=== PATIENT | male | born 1945 | race Caucasian/White ===

== ENCOUNTER 2020-02-24 17:22 | Emergency (ER) | payer OTHER, MEDICARE, SELFPAY ==
[2020-02-24] VITALS (10 sets, daily range): BP systolic 99–129; BP diastolic 54–59; PULSE 68–132; RESP 15–19; TEMP 36.8; O2SAT 94–97
--- NOTE | 2020-02-24 17:29 | ED.GENADUL_ITS ---
Discharge Plan Disposition Patient Disposition: HOME Condition: Stable Discharge Details Chief Complaint: CVA/TIA Clinical Impression: Lightheadedness Primary Care Provider: Zeny Diaz ED Provider: Desean Gloria Home Meds and New Rx's Prescriptions: Continued metformin [Glucophage] 1,000 MG tablet 1,000 mg PO BID RF: 0 lisinopril 5 MG tablet 20 mg PO DAILY AM RF: 0 aspirin [Aspirin Low-Strength] 81 MG tablet,chewable 81 mg PO DAILY RF: 0 meclizine [Antivert] 12.5 MG tablet 12.5 mg PO TID PRN PRNQty: 10 RF: 0 atorvastatin 10 mg Tablet 10 mg PO DAILY RF: 0 amlodipine 5 mg Tablet 5 mg PO DAILY RF: 0 ropinirole 0.5 mg Tablet 0.25 mg PO .QHS RF: 0 gabapentin 300 mg Capsule 300 mg PO BID RF: 0 metoprolol succinate 25 mg Tablet Extended Release 24 Hr 25 mg PO BID RF: 0 omeprazole 20 mg Tablet,Delayed Release (Dr/Ec) 20 mg PO BID RF: 0 empagliflozin 25 mg Tablet 25 mg PO DAILY RF: 0 cyanocobalamin (vitamin B-12) 1,000 mcg Capsule 1,000 mcg PO DAILY RF: 0 Trulicity 0.75 mg/0.5 mL Pen Injector 0.75 mg SUBCUT RF: 0 Discharge Instructions Instructions: Lightheadedness (ED) Additional Instructions: your cat scan of your head and lab work was normal follow up with your primary care provider within a week if you feel more ill, have difficulty walking or weakness on one side of the body return to the emergency department Medical Decision Making 74 yo male with hx of hld, htn, dm, gerd, cad, who comes in with feeling lightheaded for 3 days and also feeling like he leans to the right when he walks. Denies chest pain, shortness of breath, headaches, fevers, chills. He walked into the room without assistance with stable normal gait and no evidence of leaning to the right. He has no facial droops, normal motor and sensation on exam, caox4, has an NIH of 0 so doubt cva but given the lightheadedness and sensation of right sided listing will obtain ct head to eval for sdh and less likely cva. Is over 2 days with symptoms so would not be candidiate for tpa. Unlikely dysrhythmia as he has normal tele with the symptoms. He has no chest pain, sob, leg swelling, calf pain so doubt acs, pe or dissection at this time. Will eval for anemia and electrolyte abnormaltiie and monitor. Did have vertigo a few years ago which could be causing the symptoms pt remains stable and still has NIH of 0. Ct unremarkable and labs also unremarkable. Stable gait. Unlikely tia given symptoms. Will have him f/u with pcp with return precautions Differential Diagnosis Differential Diagnosis: vertigo, anemia, tia, cva Medical Records Medical records reviewed: Yes I reviewed the patient's medical records. Imaging Data Radiologic Study: Attestation: I personally reviewed and interpreted this imaging study as follows: Imaging: CT Scan Radiologist's impression: IMPRESSION: No acute intracranial abnormality is identified. Early cerebral infarct may be occult on CT in the first 12 hours. Lab Data Lab results reviewed: Yes I reviewed the patient's lab results. ECG Data Attestation: I personally reviewed and interpreted this ECG (s) as follows: Prior ECG tracings: not available for review Interpretation: sinus rhythm, rate of 74, pr 194, qtc 410, no acute st t wave ischemic findings HPI General Mode of arrival: ambulatory . Date/Time Provider Initiated Documentation: 02/24/20 17:23 . Limitations to Documentation: no limitations . Information obtained by: patient . History of Present Illness 74 year old M presents to the emergency department with the chief complaint of lightheaded, described as moderate, and it has been constant. No relieving factors improve symptom(s), No exacerbating factors reported . Patient did receive the following treatments prior to arrival, none Related Data Home Medications Medication Instructions Recorded Confirmed lisinopril 20 mg PO DAILY AM 10/18/16 02/24/20 metformin [Glucophage] 1,000 mg PO BID 10/18/16 02/24/20 aspirin [Aspirin Low-Strength] 81 mg PO DAILY 05/06/17 02/24/20 meclizine [Antivert] 12.5 mg PO TID PRN PRN #10 tab 05/07/17 02/24/20 Trulicity 0.75 mg SUBCUT 02/24/20 amlodipine 5 mg PO DAILY 02/24/20 02/24/20 atorvastatin 10 mg PO DAILY 02/24/20 02/24/20 cyanocobalamin (vitamin B-12) 1,000 mcg PO DAILY 02/24/20 02/24/20 empagliflozin 25 mg PO DAILY 02/24/20 02/24/20 gabapentin 300 mg PO BID 02/24/20 02/24/20 metoprolol succinate 25 mg PO BID 02/24/20 02/24/20 omeprazole 20 mg PO BID 02/24/20 02/24/20 ropinirole 0.25 mg PO .QHS 02/24/20 02/24/20 Previous Rx's Medication Instructions Recorded meclizine [Antivert] 12.5 mg PO TID PRN PRN #10 tab 05/07/17 Allergies Allergy/AdvReac Type Severity Reaction Status Date / Time No Known Allergies Allergy Unverified 02/24/20 17:30 Review of Systems All systems reviewed & are unremarkable except as noted in HPI and below Constitutional Constitutional: Denies chills, Denies fever(s) and Denies weakness Cardiovascular Cardiovascular: Denies chest pain and Denies dyspnea Respiratory Respiratory: Denies cough and Denies dyspnea Gastrointestinal Gastrointestinal: Denies abdominal pain, Denies nausea and Denies vomiting Musculoskeletal Musculoskeletal: Denies joint swelling Neurologic Neurologic: Denies weakness [facility] Social History Smoking/Tobacco Use Status: Former Tobacco Use Alcohol Intake: never Substance use type: does not use Do you feel safe in your relationship?: Yes Exam Const General: no acute distress Orientation: alert HENMT Head: normal to inspection Ears: external ears normal General nose exam: external nose normal Mouth: moist mucous membranes Eyes General: appearance normal, both eyes and all related structures Neck Neck: normal visual inspection Resp Effort & Inspection: normal respiratory effort and able to speak in complete sentences Cardio Rate: regular rate Skin General skin exam: no rashes or lesions noted Neuro General: patient alert and patient oriented x3 Extrem General: normal to inspection Psych Mental Status: mental status grossly normal
--- NOTE | 2020-02-24 17:40 | DI.CT_ITS ---
EXAM: CT HEAD - STROKE PROTOCOL CLINICAL HISTORY: stroke symptoms. TECHNIQUE: Imaging Protocol: Axial computed tomography images with coronal and sagittal reformatted images were created and reviewed COMPARISON: HEAD WITHOUT STROKE PROTOCOL from 05/06/2017 FINDINGS: Ventricles and Extra axial spaces: There is prominence of the ventricles and sulci consistent with ag e-appropriate cerebral atrophy. Hemorrhage: None. Cerebral parenchyma: There are areas of decreased attenuation in the white matter consistent with sma ll vessel ischemic disease. No acute territorial infarct is seen. Midline shift: None. Brainstem/Cerebellum: Normal. Calvarium: Normal. Visualized Paranasal sinuses/Mastoids: Clear. Soft Tissues: Unremarkable. IMPRESSION: No acute intracranial process. RADIATION DOSE DELIVERED: DATA REPOSITORY: All CT scans at this facility are submitted to the National Radiology Data Registry (NRDR) Dose Index Registry (DIR) with the [employer] ([employer]). RADIATION OPTIMIZATION: All CT scans at this facility use at least one of these dose optimization te chniques: automated exposure control; mA and/or kV adjustment per patient size (includes targeted exa ms where dose is matched to clinical indication); or iterative reconstruction.
[2020-02-24 17:44] LABS: Abs Immature Grans 0.02 k/cumm (0.0-0.09); Absolute Basophil Count 0.01 k/cumm (0.0-0.2); Absolute Eosinophil Count 0.22 k/cumm (0.0-0.7); Absolute Lymphocyte Count 2.66 k/cumm (1.2-3.4); Absolute Monocyte Count 0.69 k/cumm (0.11-0.7); Absolute Neutrophil Count 6.86 k/cumm (1.2-6.7); Basophils % 0.1; Eosinophils % 2.1; HGB 13.9 g/dL (13.5-17.5); Immature Grans % 0.2 %; Lymphocytes % 25.4; Mean Corp. HGB Concentration 33.9 g/dL (32.0-36.0); Mean Corpuscular Hemoglobin 32.1 pg (27.0-33.0); Mean Corpuscular Volume 94.7 fL (80-95); Mean Platelet Volume 10.3 fL (8.0-11.0); Monocytes % 6.6; Neutrophils % 65.6; Platelet Count 313 x1000/uL (130-400); RBC 4.33 m/cumm (4.50-6.00); RBC Distribution Width 12.6 % (11.8-14.1); White Blood Cell Count 10.46 k/cumm (4.4-10.8)
--- NOTE | 2020-02-24 17:47 | DI.VRAD_ITS ---
PROCEDURE INFORMATION: Exam: CT Head Without Contrast Exam date and time: 02/24/2020 5:37 PM Age: 74 years old Clinical indication: Other: Stroke symptoms TECHNIQUE: Imaging protocol: Computed tomography of the head without contrast. Radiation optimization: All CT scans at this facility use at least one of these dose optimization techniques: automated exposure control; mA and/or kV adjustment per patient size (includes targeted exams where dose is matched to clinical indication); or iterative reconstruction. Other technique: STROKE PROTOCOL was implemented. COMPARISON: CT HEAD WITHOUT STROKE PROTOCOL 05/06/2017 8:11 PM FINDINGS: Brain: Prominent chronic small vessel ischemic changes in the bilateral periventricular white matter. Mild diffuse cortical volume loss. No acute intracranial hemorrhage. No midline shift. Ventricles: Normal. No ventriculomegaly. Bones/joints: No acute fracture. Sinuses: Unremarkable as visualized. No acute sinusitis. Mastoid air cells: Visualized mastoid air cells are well aerated. Soft tissues: Unremarkable. IMPRESSION: No acute intracranial abnormality is identified. Early cerebral infarct may be occult on CT in the first 12 hours. ASSESSMENT: ASPECTS ([place] Stroke Program Early CT Score) is 10. Please note that this is a preliminary report. The separate, final report is to follow. Dictated and Authenticated by: Sandra Barber MD. Ordering:SLADE Anton MD
[2020-02-24 17:53] LABS: INR 1.1 (0.9-1.1); PTT Activated 26.1 sec (21.0-31.4); Prothrombin Time 10.7 sec (9.3-11.0)
[2020-02-24 17:58] LABS: ALT 27 U/L (16-63); AST 21 U/L (15-37); Albumin 3.7 g/dL (3.4-5.0); Alkaline Phosphatase 66 U/L (46-116); Anion Gap 9.4 mmol/L (3-11); BUN 25 mg/dL (7-18); Bilirubin, Total 0.3 mg/dL (0.2-1.0); CO2 28.6 mmol/L (21.0-32.0); CREATININE 1.37 mg/dL (0.70-1.30); Calcium 8.9 mg/dL (8.5-10.1); Chloride 103 mmol/L (98-107); Estimated GFR 50.79 (mL/min/1.73m2); Glucose 95 mg/dL (74-106); Magnesium 0.8 mg/dL (1.8-2.4); Potassium 3.9 mmol/L (3.5-5.1); Sodium 141 mmol/L (136-145); Total Protein 7.4 g/dL (6.4-8.2)
[2020-02-24 18:01] LABS: Troponin I < 0.05 ng/Ml (<0.06)
== END 2020-02-24 18:31 | disposition home or self-care (01) ==
PROVIDERS: Emergency Provider Emergency Medicine; PCP Nurse Practitioner Family
DX: R42 Dizziness and giddiness (principal); E83.42 Hypomagnesemia; I10 Essential (primary) hypertension; E11.9 Type 2 diabetes mellitus without complications; Z79.84 Long term (current) use of oral hypoglycemic drugs
CPT/HCPCS: 36415; 80053; 93005; 99285; 70450; 83735; 84484; 85025; 85610; 85730; 93010; 99284

== ENCOUNTER 2022-11-23 12:21 | Emergency (ER) | payer OTHER, SELFPAY ==
[2022-11-23] VITALS (25 sets, daily range): BP systolic 100–147; BP diastolic 44–59; PULSE 49–67; RESP 13–18; TEMP 36.7; O2SAT 99
--- NOTE | 2022-11-23 12:15 | RT.EKG_ITS ---
APPROVED REPORT Exam: Resting ECG Reason for Exam: DIZZY Patient Location: E HR:59 bpm ECG Measurements Heart Rate 59 AXIS PA 220 P -12 QRSd 79 QRS -10 QT 429 T 68 QTc 426 Conclusion Sinus bradycardia...rate< 60 Prolonged PA interval...PA >220, V-rate 50- 90. Sinus. No STEMI. I have reviewed and interpreted ECG and agree with software generated interpretation.
--- NOTE | 2022-11-23 12:30 | DI.CT_ITS ---
Exam(s) CT HEAD WO EXAM: CT HEAD WO CLINICAL HISTORY: dizziness, unsteadiness, r/o acute cva. TECHNIQUE: Imaging Protocol: Axial computed tomography images with coronal and sagittal reformatted images were created and reviewed COMPARISON: CT CT HEAD - STROKE PROTOCOL from 02/24/2020 FINDINGS: Ventricles and Extra axial spaces: Normal in size and morphology for the patient's age. Hemorrhage: None. Cerebral parenchyma: No evidence of an acute territorial infarct is seen. There are areas of decreas ed attenuation in the white matter consistent with small vessel ischemic disease. Midline shift: None. Brainstem/Cerebellum: Normal. Calvarium: Normal. Visualized Paranasal sinuses/Mastoids: Clear. Soft Tissues: Unremarkable. IMPRESSION: 1. No acute intracranial process. 2. Findings were discussed with the emergency department at 3:50 p.m. on 11/23/2022. RADIATION DOSE DELIVERED: 754.69mGy.cm Total DLP DATA REPOSITORY: All CT scans at this facility are submitted to the National Radiology Data Registry (NRDR) Dose Index Registry (DIR) with the [employer] (ACR). RADIATION OPTIMIZATION: All CT scans at this facility use at least one of these dose optimization te chniques: automated exposure control; mA and/or kV adjustment per patient size (includes targeted exa ms where dose is matched to clinical indication); or iterative reconstruction.
--- NOTE | 2022-11-23 12:30 | DI.RAD_ITS ---
Exam(s) XR CHEST 2V PA LATERAL EXAM: XR CHEST 2V PA LATERAL CLINICAL HISTORY: dizziness, r/o acute disease TECHNIQUE: 2D digital imaging was performed of the chest. Two images were obtained. PA and lateral views were obtained. COMPARISON: CR CHEST 2 VIEWS PA,LAT from 10/18/2016 FINDINGS: MEDIASTINUM: Normal. HEART: Normal. PULMONARY VASCULATURE: Normal. LUNGS: Clear. PLEURAL SPACE: No pleural effusion or pneumothorax. BONE:Within normal limits for the patient's age. Sternal wires are in place. OTHER FINDINGS:Normal. IMPRESSION: No acute pulmonary findings. DATA REPOSITORY: RADIATION DOSE DELIVERED:
[2022-11-23 13:18] LABS: Abs Immature Grans 0.02 10^3/uL (0.0-0.06); Absolute Basophil Count 0.02 10^3/uL (0.0-0.2); Absolute Eosinophil Count 0.16 10^3/uL (0.0-0.7); Absolute Lymphocyte Count 1.57 10^3/uL (1.2-3.4); Absolute Monocyte Count 0.55 10^3/uL (0.1-0.8); Absolute Neutrophil Count 4.73 10^3/uL (1.2-6.7); Basophils % 0.3; Eosinophils % 2.3; HCT 37.5 % (40.0-50.0); HGB 12.5 g/dL (13.5-17.5); Immature Grans % 0.3; Lymphocytes % 22.3; MCH 32.1 pg (27.0-33.0); MCHC 33.3 % (32.0-36.0); MCV 96 fL (80-95); MPV 9.6 fL (8.0-11.0); Monocytes % 7.8; Platelet Count 266 10^3/uL (130-400); RDW 12.6 % (11.8-14.1); WBC 7.05 10^3/uL (4.4-10.8)
[2022-11-23 13:30] LABS: ALT 19 U/L (16-63); AST 20 U/L (15-37); Albumin 3.4 g/dL (3.4-5.0); Alkaline Phosphatase 79 U/L (46-116); Anion Gap 5.4 mmol/L (3-11); BUN 25 mg/dL (7-18); Bilirubin, Total 0.4 mg/dL (0.2-1.0); CO2 28.6 mmol/L (21.0-32.0); CREATININE 1.6 mg/dL (0.70-1.30); Calcium 8.7 mg/dL (8.5-10.1); Chloride 108 mmol/L (98-107); Glucose 212 mg/dL (74-106); Magnesium 1.9 mg/dL (1.8-2.4); Potassium 3.6 mmol/L (3.5-5.1); Sodium 142 mmol/L (136-145); Troponin I < 50 ng/L (<or=60)
[2022-11-23 13:48] LABS: COVID-19 PCR Negative (Negative); Influenza A PCR Negative (Negative); Influenza B PCR Negative (Negative); RSV PCR Negative (Negative)
[2022-11-23 13:51] LABS: Source Nasopharynx
--- NOTE | 2022-11-23 14:03 | ED.GENADUL_ITS ---
Discharge Plan Disposition Patient Disposition: Home Condition: Improving Discharge Details Clinical Impression: Dizziness Primary Care Provider: Zeny Diaz ED Provider: Estefania Andrews Home Meds and New Rx's Prescriptions: New meclizine 12.5 mg tablet 12.5 mg PO TID PRN (Reason: dizziness) Qty: 14 0RF Continued lisinopril 5 MG tablet 20 mg PO DAILY AM meclizine [Antivert] 12.5 MG tablet 12.5 mg PO TID PRN PRNQty: 10 0RF atorvastatin 10 mg Tablet 10 mg PO DAILY amlodipine 5 mg Tablet 5 mg PO DAILY ropinirole 0.5 mg Tablet 0.25 mg PO .QHS gabapentin 300 mg Capsule 300 mg PO BID metoprolol succinate 25 mg Tablet Extended Release 24 Hr 25 mg PO BID omeprazole 20 mg Tablet,Delayed Release (Dr/Ec) 20 mg PO BID empagliflozin 25 mg Tablet 25 mg PO DAILY cyanocobalamin (vitamin B-12) 1,000 mcg Capsule 1,000 mcg PO DAILY Trulicity 0.75 mg/0.5 mL Pen Injector 0.75 mg SUBCUT Discharge Instructions Instructions: Dizziness (ED) Additional Instructions: Your blood tests, EKG and imaging today are reassuring and show no evidence of acute concerning or significant findings. Your symptoms may be due to dehydration or vertigo. Drink plenty of fluids and get plenty of rest. Be sure to limit your amount of soda consumption as this does not help with hydration. A prescription for meclizine has been sent electronically to your pharmacy to take as needed and directed for symptoms of dizziness. Follow-up with your primary care doctor in 1 week. Return to the emergency department with any worsening or new concerning symptoms. Discharge Data Discharge Date/Time-TO BE ENTERED AT DEPARTURE: 11/23/22 16:58 Discharge Physician: Estefania Andrews Medical Decision Making 1430 -- 77-year-old male with history of hypertension, coronary artery disease, diabetes and CABG presents for intermittent dizziness for the past 3 days. Patient appears comfortable and nontoxic. EKG notes a rate of 59, sinus, no STEMI nondiagnostic. Review of records notes that patient was seen here almost 3 years ago for similar presentation in which he had dizziness worse with movement and felt he was leaning to 1 side. History and presentation does not appear consistent with subarachnoid hemorrhage or meningitis. Considering his age and history, will obtain screening labs, urinalysis, fluvid, CT head, chest x-ray and give meclizine and IV fluids and reassess. 1630 --labs and imaging reviewed. Normal white blood cell count. Troponin negative. Creatinine 1.6 and GFR 44 which are diminished compared to previous result although this was in 2019. This may be consistent with dehydration. Urinalysis negative for infection. Fluvid negative. CT head and chest x-ray negative for acute findings. Patient reassessed. Patient ate a tray of food and ambulated around the ED without any complaint of dizziness and is requesting to go home. Advised to increase fluids and rest. Son expressed concern for patient's diet soda consumption. Advised to drink plenty of water and limit diet soda. A prescription for meclizine sent electronically to his pharmacy. Advised to follow up with the primary care doctor for re-evaluation. Usual and customary return precautions given prior to discharge. Medical Records Medical records reviewed: Yes I reviewed the patient's medical records. Imaging Data Radiologic Study: Radiologist's impression: CT HEAD WO CLINICAL HISTORY: ? dizziness, unsteadiness, r/o acute cva. ? TECHNIQUE:? Imaging Protocol: Axial computed tomography images with coronal and sagittal reformatted images were created and reviewed COMPARISON:? CT CT HEAD - STROKE PROTOCOL from 02/24/2020 FINDINGS: Ventricles and Extra axial spaces: Normal in size and morphology for the patient's age. Hemorrhage: None. Cerebral parenchyma: No evidence of an acute territorial infarct is seen.? There are areas of decreased attenuation in the white matter consistent with small vessel ischemic disease.? Midline shift: None. Brainstem/Cerebellum: Normal. Calvarium: Normal. Visualized Paranasal sinuses/Mastoids: Clear. Soft Tissues: Unremarkable. IMPRESSION: 1. No acute intracranial process. XR CHEST 2V PA ? LATERAL CLINICAL HISTORY:? dizziness, r/o acute disease TECHNIQUE:? 2D digital imaging was performed of the chest.? Two images were obtained.? PA and lateral views were obtained. COMPARISON:? CR CHEST 2 VIEWS PA,LAT from 10/18/2016 FINDINGS: MEDIASTINUM: Normal.? HEART: Normal. PULMONARY VASCULATURE: Normal. LUNGS: Clear. ? PLEURAL SPACE: No pleural effusion or pneumothorax. BONE:Within normal limits for the patient's age.? Sternal wires are in place. OTHER FINDINGS:Normal.? IMPRESSION: No acute pulmonary findings. Lab Data Lab results reviewed: Yes I reviewed the patient's lab results. Labs: Laboratory Tests Range/Units 11/23/22 11/23/22 11/23/22 12:38 13:05 13:05 WBC (4.4-10.8) 10^3/uL 7.05 RBC (4.36-5.78) 10^6/uL 3.90 L Hgb (13.5-17.5) g/dL 12.5 L Hct (40.0-50.0) % 37.5 L MCV (80-95) fL 96 H MCH (27.0-33.0) pg 32.1 MCHC (32.0-36.0) % 33.3 RDW (11.8-14.1) % 12.6 Plt Count (130-400) 10^3/uL 266 MPV (8.0-11.0) fL 9.6 Immature Gran % 0.3 Neutrophils % 67.0 Lymphocytes % 22.3 Monocytes % 7.8 Eosinophils % 2.3 Basophils % 0.3 Nucleated RBC % (0.0-0.3) % 0.0 Absolute Neutrophils (1.2-6.7) 10^3/uL 4.73 Absolute Lymphocytes (1.2-3.4) 10^3/uL 1.57 Absolute Monocytes (0.1-0.8) 10^3/uL 0.55 Absolute Eosinophils (0.0-0.7) 10^3/uL 0.16 Absolute Basophils (0.0-0.2) 10^3/uL 0.02 Sodium (136-145) mmol/L 142 Potassium (3.5-5.1) mmol/L 3.6 Chloride (98-107) mmol/L 108 H Carbon Dioxide (21.0-32.0) mmol/L 28.6 Anion Gap (3-11) mmol/L 5.4 BUN (7-18) mg/dL 25 H Creatinine (0.70-1.30) mg/dL 1.6 H Est GFR (CKD-EPI 2020) (mL/min/1.73m2) 44.10 Glucose (74-106) mg/dL 212 H Calcium (8.5-10.1) mg/dL 8.7 Magnesium (1.8-2.4) mg/dL 1.9 Total Bilirubin (0.2-1.0) mg/dL 0.4 AST (15-37) U/L 20 ALT (16-63) U/L 19 Alkaline Phosphatase (46-116) U/L 79 Troponin I (<or=60) ng/L < 50 Total Protein (6.4-8.2) g/dL 7.0 Albumin (3.4-5.0) g/dL 3.4 Urine Color (Yellow) Urine Clarity (Clear) Urine pH (5-8) Ur Specific [place] (1.005-1.025) Urine Protein (Negative) mg/dL Urine Ketones (Negative) mg/dL Urine Blood (Negative) Urine Nitrite (Negative) Urine Bilirubin (Negative) Urine Urobilinogen (Up TO 0.2) EU/dL Ur Leukocyte Esterase (Negative) Urine RBC (0-2) HPF Urine WBC (0-5) HPF Ur Epithelial Cells (Negative) HPF Urine Crystals (Negative) HPF Urine Bacteria (Negative) HPF Urine Casts (Negative) LPF Urine Mucus (Negative) Ur Culture Indicated? Urine Glucose (Negative) mg/dL COVID-19 Source Nasopharynx SARS-CoV-2 (PCR) (Negative) Negative Influenza Type A (PCR) (Negative) Negative Influenza Type B (PCR) (Negative) Negative RSV (PCR) (Negative) Negative Range/Units 11/23/22 14:09 WBC (4.4-10.8) 10^3/uL RBC (4.36-5.78) 10^6/uL Hgb (13.5-17.5) g/dL Hct (40.0-50.0) % MCV (80-95) fL MCH (27.0-33.0) pg MCHC (32.0-36.0) % RDW (11.8-14.1) % Plt Count (130-400) 10^3/uL MPV (8.0-11.0) fL Immature Gran % Neutrophils % Lymphocytes % Monocytes % Eosinophils % Basophils % Nucleated RBC % (0.0-0.3) % Absolute Neutrophils (1.2-6.7) 10^3/uL Absolute Lymphocytes (1.2-3.4) 10^3/uL Absolute Monocytes (0.1-0.8) 10^3/uL Absolute Eosinophils (0.0-0.7) 10^3/uL Absolute Basophils (0.0-0.2) 10^3/uL Sodium (136-145) mmol/L Potassium (3.5-5.1) mmol/L Chloride (98-107) mmol/L Carbon Dioxide (21.0-32.0) mmol/L Anion Gap (3-11) mmol/L BUN (7-18) mg/dL Creatinine (0.70-1.30) mg/dL Est GFR (CKD-EPI 2020) (mL/min/1.73m2) Glucose (74-106) mg/dL Calcium (8.5-10.1) mg/dL Magnesium (1.8-2.4) mg/dL Total Bilirubin (0.2-1.0) mg/dL AST (15-37) U/L ALT (16-63) U/L Alkaline Phosphatase (46-116) U/L Troponin I (<or=60) ng/L Total Protein (6.4-8.2) g/dL Albumin (3.4-5.0) g/dL Urine Color (Yellow) Yellow Urine Clarity (Clear) Clear Urine pH (5-8) 6.0 Ur Specific [place] (1.005-1.025) 1.015 Urine Protein (Negative) mg/dL Trace H Urine Ketones (Negative) mg/dL Negative Urine Blood (Negative) Trace-intact H Urine Nitrite (Negative) Negative Urine Bilirubin (Negative) Negative Urine Urobilinogen (Up TO 0.2) EU/dL 0.2 Ur Leukocyte Esterase (Negative) Negative Urine RBC (0-2) HPF 0-2 Urine WBC (0-5) HPF Negative Ur Epithelial Cells (Negative) HPF Rare Urine Crystals (Negative) HPF Negative Urine Bacteria (Negative) HPF Negative Urine Casts (Negative) LPF Negative Urine Mucus (Negative) Negative Ur Culture Indicated? No Urine Glucose (Negative) mg/dL >=1000 H COVID-19 Source SARS-CoV-2 (PCR) (Negative) Influenza Type A (PCR) (Negative) Influenza Type B (PCR) (Negative) RSV (PCR) (Negative) ECG Data Attestation: I personally reviewed and interpreted this ECG (s) as follows: Interpretation: rate of 59, sinus. no stemi. HPI General Mode of arrival: wheelchair . Date/Time Provider Initiated Documentation: 11/23/22 12:23 . Limitations to Documentation: no limitations . Information obtained by: patient and family . HPI Narrative: Patient is a 77-year-old male with a history of hypertension, coronary artery disease, diabetes and CABG who presents for dizziness for the past 3 days. Patient describes a sensation of lightheadedness in addition to spinning sensation. Patient states the symptoms are worse when he tries to get up. He denies any syncopal episodes. He denies any associated symptoms of fever, new blurry vision, sore throat, headache, neck pain, chest pain, shortness of breath, abdominal pain, nausea, vomiting, diarrhea or urinary symptoms. He states his doctor recently stopped his metformin but otherwise denies any new medication changes. Son states patient does not drink enough water throughout t he day and mainly drinks Diet Coke. Patient states he was able to eat breakfast this morning. Related Data Home Medications Medication Instructions Recorded Confirmed lisinopril 5 mg tablet 20 mg PO DAILY AM 10/18/16 02/24/20 meclizine 12.5 mg tablet (Antivert) 12.5 mg PO TID PRN PRN ##10 05/07/17 02/24/20 amlodipine 5 mg tablet 5 mg PO DAILY 02/24/20 02/24/20 atorvastatin 10 mg tablet 10 mg PO DAILY 02/24/20 02/24/20 cyanocobalamin (vitamin B-12) 1,000 mcg PO DAILY 02/24/20 02/24/20 1,000 mcg capsule dulaglutide 0.75 mg/0.5 mL 0.75 mg subcut 02/24/20 subcutaneous pen injector (Trulicity) empagliflozin 25 mg tablet 25 mg PO DAILY 02/24/20 02/24/20 gabapentin 300 mg capsule 300 mg PO BID 02/24/20 02/24/20 metoprolol succinate 25 mg 25 mg PO BID 02/24/20 02/24/20 tablet,extended release 24 hr omeprazole 20 mg tablet,delayed 20 mg PO BID 02/24/20 02/24/20 release ropinirole 0.5 mg tablet 0.25 mg PO .QHS 02/24/20 02/24/20 meclizine 12.5 mg tablet 12.5 mg PO TID PRN dizziness #14 12/23/22 tabs Previous Rx's Medication Instructions Recorded meclizine 12.5 mg tablet (Antivert) 12.5 mg PO TID PRN PRN ##10 05/07/17 meclizine 12.5 mg tablet 12.5 mg PO TID PRN dizziness #14 11/23/22 tabs Allergies Allergy/AdvReac Type Severity Reaction Status Date / Time No Known Allergies Allergy Unverified 11/23/22 15:07 General Stated Complaint: Dizzy/Sync CHANDRA: 3 Review of Systems All systems reviewed & are unremarkable except as noted in HPI and below Constitutional Constitutional: Reports as per HPI, Denies chills and Denies fever(s) Eyes Eyes: Denies blurry vision ENT Ears, Nose, Mouth, and Throat: Reports dizziness, Denies sore throat and Denies throat swelling Cardiovascular Cardiovascular: Denies chest pain and Denies dyspnea Respiratory Respiratory: Denies cough and Denies dyspnea Gastrointestinal Gastrointestinal: Denies abdominal pain, Denies diarrhea and Denies vomiting Genitourinary Genitourinary: Denies hematuria and Denies dysuria Musculoskeletal Musculoskeletal: Denies back pain and Denies numbness Integumentary/Breasts Skin/Breast: Denies lesions and Denies rash Neurologic Neurologic: Reports dizziness, Denies localized weakness and Denies numbness Allergic/Immunologic Allergic/Immunologic: Denies throat swelling PFSH All Active Problems (Updated 11/23/22 @ 16:41 by Estefania Andrews DO) Dizziness (Acute) Medical History (Updated 11/23/22 @ 16:41 by Estefania Andrews DO) Diabetes HTN (hypertension) Surgical History (Updated 11/23/22 @ 15:29 by Estefania Andrews DO) History of appendectomy Hx of CABG Social History Smoking/Tobacco Use Status: Former Tobacco Use Smoking risk assessment performed?: Yes Alcohol Intake: never Substance use type: does not use Do you feel safe in your relationship?: Yes Exam Const General: cooperative and no acute distress Orientation: alert, awake and oriented x3 HENMT Head: normal to inspection Ears: hearing grossly normal bilaterally, external ears normal and TM's normal bilaterally Face and sinus: normal facial exam Mouth: oral mucosae normal Throat: posterior oropharynx normal Eyes General: appearance normal, both eyes and all related structures Pupils: PERRL EOM: EOM intact bilaterally Neck Neck: normal visual inspection and No submandibular swelling Lymphatic: no lymphadenopathy noted Chest Chest: normal inspection of the chest and no tenderness Resp Effort & Inspection: normal respiratory effort and able to speak in complete sentences Auscultation: clear to auscultation bilaterally Cardio Rate: regular rate Rhythm: regular rhythm GI Inspection: normal to inspection Palpation: soft, not firm, not rigid and nontender Auscultation: hypoactive bowel sounds Skin General skin exam: no rashes or lesions noted Neuro General: patient alert, patient awake, patient oriented x3, no meningeal signs and no focal motor deficits Cranial Nerves: CN's II-XI intact bilaterally Cognition: normal cognition Speech: speech normal Motor: muscle tone normal throughout and strength 5/5 throughout Sensory Exam: no sensory deficits noted Extrem General: normal to inspection, full ROM, capillary refill normal, no calf tenderness bilaterally and no edema Psych Appearance: grossly normal Mental Status: mental status grossly normal Speech and Movement: speech and movement normal Affect: normal affect Course Vital Signs Vital signs: Vital Signs Temperature 98.1 F 11/23/22 12:28 Pulse 61 11/23/22 12:28 Respiratory Rate 16 11/23/22 12:28 Blood Pressure 122/54 L 11/23/22 12:28 Pulse Oximetry 99 11/23/22 12:28 Temperature 98.1 F 11/23/22 12:28 Temperature Source Skin 11/23/22 12:28 Pulse 61 11/23/22 12:28 Respiratory Rate 16 11/23/22 12:28 Blood Pressure 122/54 L 11/23/22 12:28 Blood Pressure Position Supine 11/23/22 12:28 Pulse Oximetry 99 11/23/22 12:28 Oxygen Delivery Method Room Air 11/23/22 12:28 Oxygen Flow Rate 0 11/23/22 12:28 Pain Level 0 11/23/22 12:28 Lab/Test Results Lab/Test Results: Laboratory Tests Range/Units 11/23/22 11/23/22 11/23/22 12:38 13:05 13:05 WBC (4.4-10.8) 10^3/uL 7.05 RBC (4.36-5.78) 10^6/uL 3.90 L Hgb (13.5-17.5) g/dL 12.5 L Hct (40.0-50.0) % 37.5 L MCV (80-95) fL 96 H MCH (27.0-33.0) pg 32.1 MCHC (32.0-36.0) % 33.3 RDW (11.8-14.1) % 12.6 Plt Count (130-400) 10^3/uL 266 MPV (8.0-11.0) fL 9.6 Immature Gran % 0.3 Neutrophils % 67.0 Lymphocytes % 22.3 Monocytes % 7.8 Eosinophils % 2.3 Basophils % 0.3 Nucleated RBC % (0.0-0.3) % 0.0 Absolute Neutrophils (1.2-6.7) 10^3/uL 4.73 Absolute Lymphocytes (1.2-3.4) 10^3/uL 1.57 Absolute Monocytes (0.1-0.8) 10^3/uL 0.55 Absolute Eosinophils (0.0-0.7) 10^3/uL 0.16 Absolute Basophils (0.0-0.2) 10^3/uL 0.02 Sodium (136-145) mmol/L 142 Potassium (3.5-5.1) mmol/L 3.6 Chloride (98-107) mmol/L 108 H Carbon Dioxide (21.0-32.0) mmol/L 28.6 Anion Gap (3-11) mmol/L 5.4 BUN (7-18) mg/dL 25 H Creatinine (0.70-1.30) mg/dL 1.6 H Est GFR (CKD-EPI 2020) (mL/min/1.73m2) 44.10 Glucose (74-106) mg/dL 212 H Calcium (8.5-10.1) mg/dL 8.7 Magnesium (1.8-2.4) mg/dL 1.9 Total Bilirubin (0.2-1.0) mg/dL 0.4 AST (15-37) U/L 20 ALT (16-63) U/L 19 Alkaline Phosphatase (46-116) U/L 79 Troponin I (<or=60) ng/L < 50 Total Protein (6.4-8.2) g/dL 7.0 Albumin (3.4-5.0) g/dL 3.4 COVID-19 Source Nasopharynx SARS-CoV-2 (PCR) (Negative) Negative Influenza Type A (PCR) (Negative) Negative Influenza Type B (PCR) (Negative) Negative RSV (PCR) (Negative) Negative
[2022-11-23 14:21] LABS: Bilirubin Negative (Negative); Blood Trace-intact (Negative); Clarity Clear (Clear); Glucose >=1000 mg/dL (Negative); Ketones Negative (Negative); Leukocyte Esterase Negative (Negative); Nitrite Negative (Negative); Specific Gravity 1.015 (1.005-1.025); Urobilinogen 0.2 EU/dL (Up TO 0.2)
[2022-11-23 14:28] LABS: Bacteria Negative HPF (Negative); C & S Indicated? No; Casts Negative LPF (Negative); Crystals Negative HPF (Negative); Epithelial Cells Rare HPF (Negative); Mucus Negative (Negative); RBC 0-2 HPF (0-2); WBC Negative HPF (0-5)
[2022-11-23] MEDS: Normal Saline 1,000 ML 1000 ML IV (15:04)
[2022-11-23] MEDS: Meclizine 25 MG TAB PO (15:04)
--- NOTE | 2022-11-23 16:32 | DI.VRAD_ITS ---
PROCEDURE INFORMATION: Exam: XR Chest Exam date and time: 11/23/2022 3:02 PM Age: 77 years old Clinical indication: Dizziness, R/O acute disease TECHNIQUE: Imaging protocol: Radiologic exam of the chest. Views: 2 views. COMPARISON: CR CHEST 2 VIEWS PA,LAT 10/18/2016 12:14 PM FINDINGS: Lungs: No consolidation. Pleural spaces: No pleural effusion. No pneumothorax. Heart/Mediastinum: No cardiomegaly. Bones/joints: Sternotomy wires are noted. Osteoarthritic degenerative changes noted at acromioclavicular joints. No acute fracture. IMPRESSION: No evidence of acute findings. Dictated and Authenticated by: Monisha Celeste MD. Ordering:SAADIA Mac MD
[2022-11-23] MEDS: Meclizine 12.5 MG TAB PO (16:53)
== END 2022-11-23 16:58 | disposition home or self-care (01) ==
PROVIDERS: Emergency Provider Physician Assistant; PCP Nurse Practitioner Family
DX: R42 Dizziness and giddiness (principal); I10 Essential (primary) hypertension; I25.10 Atherosclerotic heart disease of native coronary artery without angina pectoris; E11.9 Type 2 diabetes mellitus without complications; Z20.822 Contact with and (suspected) exposure to COVID-19
CPT/HCPCS: 36416; 80053; 82962; 87637; 93005; 96360; 99284; 70450; 71046; 81003; 81015; 83735; 84484; 85025; 93010; 99285

== ENCOUNTER 2023-01-05 16:58 | Observation (INO) | payer OTHER, SELFPAY ==
[2023-01-05] VITALS (173 sets, daily range): BP systolic 116–183; BP diastolic 49–119; PULSE 53–126; RESP 8–31; TEMP 36.2–37.1; O2SAT 94–100
--- NOTE | 2023-01-05 | DI.RAD_ITS ---
Exam(s) XR ABDOMEN FLAT UPRIGHT EXAM: 2D digital imaging was performed. CLINICAL HISTORY: nausea, retching, poor appetite. COMPARISON: No exams were available for comparison TECHNIQUE: Supine and uprightSupine and Lateral views of the abdomen was performed. Three images w ere obtained. FINDINGS: LUNG BASES: Clear. BOWEL GAS PATTERN: Nondistended. There are diverticula seen in the colon. No evidence of bowel obstr uction. FREE AIR: None. CALCIFICATIONS: No radiopaque calcifications. OSSEOUS STRUCTURES: Normal for age. Sternal wires are in place. OTHER FINDINGS: None. IMPRESSION: No evidence of an acute abdomen. DATA REPOSITORY: RADIATION DOSE DELIVERED:
--- NOTE | 2023-01-05 17:00 | DI.RAD_ITS ---
Exam(s) XR PORTABLE CHEST AP EXAM: XR PORTABLE CHEST AP CLINICAL HISTORY: N/V TECHNIQUE: 2D digital imaging was performed of the chest. One image was obtained. An AP view was ob tained. COMPARISON: CR,XR XR CHEST 2V PA LATERAL from 11/23/2022 FINDINGS: MEDIASTINUM: Normal. HEART: Normal. PULMONARY VASCULATURE: Normal. LUNGS: Clear. PLEURAL SPACE: No pleural effusion or pneumothorax. BONE:Within normal limits for the patient's age. Sternal wires are in place. OTHER FINDINGS:Normal. IMPRESSION: No acute pulmonary findings. DATA REPOSITORY: RADIATION DOSE DELIVERED:
--- NOTE | 2023-01-05 17:00 | RT.EKG_ITS ---
APPROVED REPORT Exam: Resting ECG Reason for Exam: lightheadedness Patient Location: E HR:59 bpm ECG Measurements Heart Rate 59 AXIS MO 213 P -5 QRSd 83 QRS -11 QT 431 T 52 QTc 419 Conclusion Sinus bradycardia...rate< 60 Atrial premature complex...SV complex w/ short R-R interval Borderline prolonged MO interval...MO >212, V-rate 50- 90
[2023-01-05] MEDS: Normal Saline 1,000 ML 1000 ML IV (17:40)
[2023-01-05 17:43] LABS: Abs Immature Grans 0.02 10^3/uL (0.0-0.06); Absolute Basophil Count 0.03 10^3/uL (0.0-0.2); Absolute Eosinophil Count 0.27 10^3/uL (0.0-0.7); Absolute Lymphocyte Count 1.58 10^3/uL (1.2-3.4); Absolute Monocyte Count 0.58 10^3/uL (0.1-0.8); Absolute Neutrophil Count 6.63 10^3/uL (1.2-6.7); Basophils % 0.3; HCT 37.6 % (40.0-50.0); HGB 12.6 g/dL (13.5-17.5); Immature Grans % 0.2; Lymphocytes % 17.3; MCH 32.1 pg (27.0-33.0); MCHC 33.5 % (32.0-36.0); MCV 96 fL (80-95); MPV 9.9 fL (8.0-11.0); Monocytes % 6.4; Neutrophils % 72.8; Platelet Count 233 10^3/uL (130-400); RBC 3.92 10^6/uL (4.36-5.78); RDW 12.2 % (11.8-14.1); RDW-SD 42.3 fL; WBC 9.11 10^3/uL (4.4-10.8)
[2023-01-05 18:05] LABS: ALT 24 U/L (16-63); AST 23 U/L (15-37); Albumin 3.4 g/dL (3.4-5.0); Alkaline Phosphatase 78 U/L (46-116); Anion Gap 7.6 mmol/L (3-11); BUN 19 mg/dL (7-18); Bilirubin, Total 0.3 mg/dL (0.2-1.0); CO2 28.4 mmol/L (21.0-32.0); CREATININE 1.5 mg/dL (0.70-1.30); Calcium 8.4 mg/dL (8.5-10.1); Chloride 105 mmol/L (98-107); Estimated GFR 47.65 (mL/min/1.73m2); Glucose 192 mg/dL (74-106); Magnesium 1.3 mg/dL (1.8-2.4); Potassium 4.3 mmol/L (3.5-5.1); Sodium 141 mmol/L (136-145); Total Protein 6.8 g/dL (6.4-8.2)
[2023-01-05 18:08] LABS: Troponin I 211 ng/L (<or=60)
--- NOTE | 2023-01-05 18:17 | ED.GENADUL_ITS ---
Discharge Plan Disposition Patient Disposition: Admit to [facility] Condition: Stable Discharge Details Clinical Impression: Elevated troponin, Nausea & vomiting Primary Care Provider: Zeny Diaz ED Provider: Isaiah Davis Home Meds and New Rx's Prescriptions: No Action lisinopril 5 MG tablet 20 mg PO DAILY AM meclizine [Antivert] 12.5 MG tablet 12.5 mg PO TID PRN PRNQty: 10 0RF atorvastatin 10 mg Tablet 10 mg PO DAILY amlodipine 5 mg Tablet 5 mg PO DAILY ropinirole 0.5 mg Tablet 0.25 mg PO .QHS gabapentin 300 mg Capsule 300 mg PO BID metoprolol succinate 25 mg Tablet Extended Release 24 Hr 25 mg PO BID omeprazole 20 mg Tablet,Delayed Release (Dr/Ec) 20 mg PO BID empagliflozin 25 mg Tablet 25 mg PO DAILY cyanocobalamin (vitamin B-12) 1,000 mcg Capsule 1,000 mcg PO DAILY Trulicity 0.75 mg/0.5 mL Pen Injector 0.75 mg SUBCUT QWEEK meclizine 12.5 mg tablet 12.5 mg PO TID PRN (Reason: dizziness) Qty: 14 0RF diphenhydramine HCl [Benadryl] 25 mg Capsule 25 mg PO BID Medical Decision Making 77-year-old gentleman with a Toshia history of hypertension, diabetes, CABG, presents for 3-4 days of generalized weakness, nausea and vomiting, abdominal pain with vomiting. Clinically he appears well, nontoxic. Plan to obtain IV access, give IV fluid and Zofran, initiate routine screening laboratory values including a troponin. Patient reports nausea has resolved with the Zofran. He is currently asymptomatic. Receiving IV fluid. Laboratory values reveal a magnesium of 1.3, will provide 1 g IV. Troponin 211. Will provide full dose aspirin. He denies any chest pain whatsoever. I once again confirmed with he and his son that he is a full code. He would pursue a procedure if recommended by cardiology. The EKG was pushed to [facility] and I have requested a transfer-consultation with cardiology. Received a call back stating that they were at capacity and could not except care of the patient. Patient tells me that [facility], [facility]G was performed in [facility] in [place]. [facility] [place]. Patient remains asymptomatic. Delta troponin pending After waiting 1 hour for a call back from the [place], another call was placed to the [place] and we also opened a plastic medication for potential transfer-consultation to cardiology at [facility]. [facility] did tell me that they were at or near capacity but would at least be able to have a cardiology consultation. I received a call back at 1953 from cardiology, Dr. Tamayo, [facility]. He did not believe this sounded clinically consistent with ACS, did not recommend transfer, emergent cardiac catheterization, etc. He felt as though given his creatinine of 1.5, we could continue to hydrate, trend his troponin, and obtain echo and/or nuclear stress test. Certainly if the patient had worsening troponins, became symptomatic, had abnormal testing, etc. then additional cardiology input would be necessary. Call was then placed to our hospitalist team to discuss admission. Case discussed with Dr. Kahn who is agreeable to admission and will come evaluate the patient personally. Patient does report nausea is returning, 4 mg IV Zofran provided This documentation was generated using [employer] system, please disregard any oddities of phrase or misspellings. Medical Records Medical records reviewed: Yes I reviewed the patient's medical records. Imaging Data Radiologic Study: Attestation: I personally reviewed and interpreted this imaging study as follows: Imaging: X-Ray Radiologist's impression: PROCEDURE INFORMATION: Exam: XR Chest Exam date and time: 01/05/2023 5:54 PM Age: 77 years old Clinical indication: Fever and other: Nausea and vomiting TECHNIQUE: Imaging protocol: Radiologic exam of the chest. Views: 1 view. COMPARISON: CR XR CHEST 2V PA LATERAL 11/23/2022 3:02 PM FINDINGS: Tubes, catheters and devices: There are sternal wires consistent with previous sternotomy incision. Surgical clips present overlying the left lower lobe of the lung medially. Lungs: No evidence of focal consolidation/pneumonia. Pleural spaces: There is no evidence of pneumothorax. There are no pleural effusions present. Heart/Mediastinum: There is mild cardiomegaly. Vasculature: The aorta demonstrates moderate atherosclerotic calcification. Bones/joints: The skeletal structures and soft tissues show no evidence of fracture or other acute processes. Soft tissues: The soft tissues of the extrathoracic region are unremarkable. IMPRESSION: No definitive active cardiopulmonary disease Lab Data Lab results reviewed: Yes I reviewed the patient's lab results. Labs: Laboratory Tests Range/Units 01/05/23 01/05/23 01/05/23 17:30 17:30 17:35 WBC (4.4-10.8) 10^3/uL 9.11 RBC (4.36-5.78) 10^6/uL 3.92 L Hgb (13.5-17.5) g/dL 12.6 L Hct (40.0-50.0) % 37.6 L MCV (80-95) fL 96 H MCH (27.0-33.0) pg 32.1 MCHC (32.0-36.0) % 33.5 RDW (11.8-14.1) % 12.2 Plt Count (130-400) 10^3/uL 233 MPV (8.0-11.0) fL 9.9 Immature Gran % 0.2 Neutrophils % 72.8 Lymphocytes % 17.3 Monocytes % 6.4 Eosinophils % 3.0 Basophils % 0.3 Nucleated RBC % (0.0-0.3) % 0.0 Absolute Neutrophils (1.2-6.7) 10^3/uL 6.63 Absolute Lymphocytes (1.2-3.4) 10^3/uL 1.58 Absolute Monocytes (0.1-0.8) 10^3/uL 0.58 Absolute Eosinophils (0.0-0.7) 10^3/uL 0.27 Absolute Basophils (0.0-0.2) 10^3/uL 0.03 Sodium (136-145) mmol/L 141 Potassium (3.5-5.1) mmol/L 4.3 Chloride (98-107) mmol/L 105 Carbon Dioxide (21.0-32.0) mmol/L 28.4 Anion Gap (3-11) mmol/L 7.6 BUN (7-18) mg/dL 19 H Creatinine (0.70-1.30) mg/dL 1.5 H Est GFR (CKD-EPI 2020) (mL/min/1.73m2) 47.65 Glucose (74-106) mg/dL 192 H Calcium (8.5-10.1) mg/dL 8.4 L Magnesium (1.8-2.4) mg/dL 1.3 L Total Bilirubin (0.2-1.0) mg/dL 0.3 AST (15-37) U/L 23 ALT (16-63) U/L 24 Alkaline Phosphatase (46-116) U/L 78 Troponin I (<or=60) ng/L 211 H* Total Protein (6.4-8.2) g/dL 6.8 Albumin (3.4-5.0) g/dL 3.4 Urine Color (Yellow) Urine Clarity (Clear) Urine pH (5-8) Ur Specific Barbeau (1.005-1.025) Urine Protein (Negative) mg/dL Urine Ketones (Negative) mg/dL Urine Blood (Negative) Urine Nitrite (Negative) Urine Bilirubin (Negative) Urine Urobilinogen (Up TO 0.2) EU/dL Ur Leukocyte Esterase (Negative) Urine RBC (0-2) HPF Urine WBC (0-5) HPF Ur Epithelial Cells (Negative) HPF Urine Crystals (Negative) HPF Urine Bacteria (Negative) HPF Urine Casts (Negative) LPF Urine Mucus (Negative) Ur Culture Indicated? Urine Glucose (Negative) mg/dL COVID-19 Source Nasopharynx SARS-CoV-2 (PCR) (Negative) Negative Influenza Type A (PCR) (Negative) Negative Influenza Type B (PCR) (Negative) Negative RSV (PCR) (Negative) Negative Range/Units 01/05/23 18:20 WBC (4.4-10.8) 10^3/uL RBC (4.36-5.78) 10^6/uL Hgb (13.5-17.5) g/dL Hct (40.0-50.0) % MCV (80-95) fL MCH (27.0-33.0) pg MCHC (32.0-36.0) % RDW (11.8-14.1) % Plt Count (130-400) 10^3/uL MPV (8.0-11.0) fL Immature Gran % Neutrophils % Lymphocytes % Monocytes % Eosinophils % Basophils % Nucleated RBC % (0.0-0.3) % Absolute Neutrophils (1.2-6.7) 10^3/uL Absolute Lymphocytes (1.2-3.4) 10^3/uL Absolute Monocytes (0.1-0.8) 10^3/uL Absolute Eosinophils (0.0-0.7) 10^3/uL Absolute Basophils (0.0-0.2) 10^3/uL Sodium (136-145) mmol/L Potassium (3.5-5.1) mmol/L Chloride (98-107) mmol/L Carbon Dioxide (21.0-32.0) mmol/L Anion Gap (3-11) mmol/L BUN (7-18) mg/dL Creatinine (0.70-1.30) mg/dL Est GFR (CKD-EPI 2020) (mL/min/1.73m2) Glucose (74-106) mg/dL Calcium (8.5-10.1) mg/dL Magnesium (1.8-2.4) mg/dL Total Bilirubin (0.2-1.0) mg/dL AST (15-37) U/L ALT (16-63) U/L Alkaline Phosphatase (46-116) U/L Troponin I (<or=60) ng/L Total Protein (6.4-8.2) g/dL Albumin (3.4-5.0) g/dL Urine Color (Yellow) Yellow Urine Clarity (Clear) Clear Urine pH (5-8) 6.5 Ur Specific Barbeau (1.005-1.025) 1.020 Urine Protein (Negative) mg/dL Negative Urine Ketones (Negative) mg/dL Negative Urine Blood (Negative) Trace-intact H Urine Nitrite (Negative) Negative Urine Bilirubin (Negative) Negative Urine Urobilinogen (Up TO 0.2) EU/dL 0.2 Ur Leukocyte Esterase (Negative) Negative Urine RBC (0-2) HPF 0-2 Urine WBC (0-5) HPF 0-2 Ur Epithelial Cells (Negative) HPF Rare Urine Crystals (Negative) HPF Negative Urine Bacteria (Negative) HPF Negative Urine Casts (Negative) LPF Negative Urine Mucus (Negative) Negative Ur Culture Indicated? No Urine Glucose (Negative) mg/dL >=1000 H COVID-19 Source SARS-CoV-2 (PCR) (Negative) Influenza Type A (PCR) (Negative) Influenza Type B (PCR) (Negative) RSV (PCR) (Negative) ECG Data Attestation: I personally reviewed and interpreted this ECG (s) as follows: Interpretation: Sinus bradycardia, ventricular to 59. No STEMI. HPI General Mode of arrival: ambulatory . Date/Time Provider Initiated Documentation: 01/05/23 17:12 . Limitations to Documentation: no limitations . Information obtained by: patient and family . HPI Narrative: This is a 77-year-old gentleman, full code, past medical history of hypertension, diabetes, diabetic neuropathy, GERD, CABG, presenting to the ER with his family for evaluation of generalized weakness, nausea and vomiting for the past 3-4 days. He reports abdominal pain with vomiting but no abdominal pain at rest. He denies recent illness or trauma. Denies headache, visual changes, neck pain, chest pain, shortness of breath, change in bowel or bladder function, pain or swelling in his extremities other than his baseline neuropathy. Patient reports taking his medications as directed. Has not taken any [id number] medication for symptomatic control. Son reports that he is concerned of dehydration, patient reports that he has been drinking Coca[employer] well and is not concerned of dehydration. Related Data Home Medications Medication Instructions Recorded Confirmed lisinopril 5 mg tablet 20 mg PO DAILY AM 10/18/16 01/05/23 meclizine 12.5 mg tablet (Antivert) 12.5 mg PO TID PRN PRN ##10 05/07/17 01/05/23 amlodipine 5 mg tablet 5 mg PO DAILY 02/24/20 01/05/23 atorvastatin 10 mg tablet 10 mg PO DAILY 02/24/20 01/05/23 cyanocobalamin (vitamin B-12) 1,000 mcg PO DAILY 02/24/20 01/05/23 1,000 mcg capsule dulaglutide 0.75 mg/0.5 mL 0.75 mg subcut QWEEK 02/24/20 01/05/23 subcutaneous pen injector (Trulicity) empagliflozin 25 mg tablet 25 mg PO DAILY 02/24/20 01/05/23 gabapentin 300 mg capsule 300 mg PO BID 02/24/20 01/05/23 metoprolol succinate 25 mg 25 mg PO BID 02/24/20 01/05/23 tablet,extended release 24 hr omeprazole 20 mg tablet,delayed 20 mg PO BID 02/24/20 01/05/23 release ropinirole 0.5 mg tablet 0.25 mg PO .QHS 02/24/20 01/05/23 meclizine 12.5 mg tablet 12.5 mg PO TID PRN dizziness #14 11/23/22 01/05/23 tabs diphenhydramine HCl 25 mg capsule 25 mg PO BID 01/05/23 01/05/23 (Benadryl) Previous Rx's Medication Instructions Recorded meclizine 12.5 mg tablet (Antivert) 12.5 mg PO TID PRN PRN ##10 05/07/17 meclizine 12.5 mg tablet 12.5 mg PO TID PRN dizziness #14 11/23/22 tabs Allergies Allergy/AdvReac Type Severity Reaction Status Date / Time No Known Allergies Allergy Unverified 01/05/23 17:40 General Stated Complaint: GenMedical CHANDRA: 3 Review of Systems Constitutional Constitutional: Denies fatigue, Denies fever(s), Denies headache(s) and Reports weakness (Generalized) Eyes Eyes: Denies change in vision ENT Ears, Nose, Mouth, and Throat: Denies headache(s) and Denies neck pain Cardiovascular Cardiovascular: Denies chest pain and Denies dyspnea Respiratory Respiratory: Denies cough and Denies dyspnea Gastrointestinal Gastrointestinal: Reports abdominal pain, Denies constipation, Denies diarrhea, Reports nausea and Reports vomiting Genitourinary Genitourinary: Denies dysuria Musculoskeletal Musculoskeletal: Denies back pain and Denies neck pain Integumentary/Breasts Skin/Breast: Denies rash Neurologic Neurologic: Denies headache(s) and Reports weakness (Generalized) Endocrine Endocrine: Denies fatigue Hematologic/Lymphatic Hematologic/Lymphatic: Denies easy bleeding and Denies easy bruising PFSH All Active Problems (Updated 01/05/23 @ 20:18 by JULIET Drummond) Elevated troponin (Acute) Nausea & vomiting (Acute) Medical History Diabetes HTN (hypertension) Surgical History History of appendectomy Hx of CABG Social History Smoking/Tobacco Use Status: Former Tobacco Use Smoking risk assessment performed?: Yes Alcohol Intake: never Substance use type: does not use Do you feel safe in your relationship?: Yes Exam Const General: cooperative, healthy appearing, comfortable and no acute distress Orientation: alert, awake and oriented x3 HENMT Head: normal to inspection, normocephalic and atraumatic Face and sinus: normal facial exam Mouth: moist mucous membranes abnormal (Slightly dry) Eyes Conjunctivae: conjunctivae normal Neck Neck: normal visual inspection, full ROM, no meningeal signs, trachea midline and supple Resp Effort & Inspection: normal respiratory effort and able to speak in complete sentences Auscultation: clear to auscultation bilaterally Cardio Rate: regular rate Rhythm: regular rhythm GI Inspection: normal to inspection Palpation: soft, not firm, no guarding, no pulsatile masses and nontender Auscultation: normal bowel sounds Back/Spine/Pelvis Back: No back tenderness Skin General skin exam: no rashes or lesions noted Neuro General: patient alert, patient awake, patient oriented x3, moves all extremities and no focal motor deficits Cognition: normal cognition Speech: speech normal Gait: normal gait Motor: muscle tone normal throughout Sensory Exam: no sensory deficits noted Extrem General: normal to inspection, full ROM, capillary refill normal, no pedal edema and no calf tenderness Psych Appearance: grossly normal Mental Status: mental status grossly normal Course Vital Signs Vital signs: Vital Signs Temperature 36.8 C 01/05/23 17:01 Pulse 60 01/05/23 17:01 Respiratory Rate 18 01/05/23 17:01 Blood Pressure 130/49 L 01/05/23 17:01 Pulse Oximetry 100 01/05/23 17:01 Temperature 36.8 C 01/05/23 17:01 Temperature Source Temporal Artery Scan 01/05/23 17:01 Pulse 60 01/05/23 17:01 Respiratory Rate 17 01/05/23 17:39 Respiratory Effort 01/05/23 17:39 Respiratory Depth Normal 01/05/23 17:39 Respiratory Pattern Normal 01/05/23 17:39 Blood Pressure 130/49 L 01/05/23 17:01 Blood Pressure Position Supine 01/05/23 17:01 Pulse Oximetry 100 01/05/23 17:01 Oxygen Delivery Method Room Air 01/05/23 17:01 Oxygen Flow Rate 0 01/05/23 17:01 Lab/Test Results Lab/Test Results: Laboratory Tests Range/Units 01/05/23 01/05/23 17:30 17:30 WBC (4.4-10.8) 10^3/uL 9.11 RBC (4.36-5.78) 10^6/uL 3.92 L Hgb (13.5-17.5) g/dL 12.6 L Hct (40.0-50.0) % 37.6 L MCV (80-95) fL 96 H MCH (27.0-33.0) pg 32.1 MCHC (32.0-36.0) % 33.5 RDW (11.8-14.1) % 12.2 Plt Count (130-400) 10^3/uL 233 MPV (8.0-11.0) fL 9.9 Immature Gran % 0.2 Neutrophils % 72.8 Lymphocytes % 17.3 Monocytes % 6.4 Eosinophils % 3.0 Basophils % 0.3 Nucleated RBC % (0.0-0.3) % 0.0 Absolute Neutrophils (1.2-6.7) 10^3/uL 6.63 Absolute Lymphocytes (1.2-3.4) 10^3/uL 1.58 Absolute Monocytes (0.1-0.8) 10^3/uL 0.58 Absolute Eosinophils (0.0-0.7) 10^3/uL 0.27 Absolute Basophils (0.0-0.2) 10^3/uL 0.03 Sodium (136-145) mmol/L 141 Potassium (3.5-5.1) mmol/L 4.3 Chloride (98-107) mmol/L 105 Carbon Dioxide (21.0-32.0) mmol/L 28.4 Anion Gap (3-11) mmol/L 7.6 BUN (7-18) mg/dL 19 H Creatinine (0.70-1.30) mg/dL 1.5 H Est GFR (CKD-EPI 2020) (mL/min/1.73m2) 47.65 Glucose (74-106) mg/dL 192 H Calcium (8.5-10.1) mg/dL 8.4 L Magnesium (1.8-2.4) mg/dL 1.3 L Total Bilirubin (0.2-1.0) mg/dL 0.3 AST (15-37) U/L 23 ALT (16-63) U/L 24 Alkaline Phosphatase (46-116) U/L 78 Troponin I (<or=60) ng/L 211 H* Total Protein (6.4-8.2) g/dL 6.8 Albumin (3.4-5.0) g/dL 3.4
[2023-01-05 18:19] LABS: COVID-19 PCR Negative (Negative); Influenza A PCR Negative (Negative); Influenza B PCR Negative (Negative); RSV PCR Negative (Negative)
[2023-01-05 18:20] LABS: Source Nasopharynx
[2023-01-05] MEDS: Aspirin 81 MG CHEW 324 MG CH (18:24)
[2023-01-05 18:31] LABS: Bilirubin Negative (Negative); Blood Trace-intact (Negative); Clarity Clear (Clear); Glucose >=1000 mg/dL (Negative); Ketones Negative (Negative); Leukocyte Esterase Negative (Negative); Nitrite Negative (Negative); Urobilinogen 0.2 EU/dL (Up TO 0.2); pH 6.5 (5-8)
--- NOTE | 2023-01-05 18:33 | DI.VRAD_ITS ---
PROCEDURE INFORMATION: Exam: XR Chest Exam date and time: 01/05/2023 5:54 PM Age: 77 years old Clinical indication: Fever and other: Nausea and vomiting TECHNIQUE: Imaging protocol: Radiologic exam of the chest. Views: 1 view. COMPARISON: CR XR CHEST 2V PA LATERAL 11/23/2022 3:02 PM FINDINGS: Tubes, catheters and devices: There are sternal wires consistent with previous sternotomy incision. Surgical clips present overlying the left lower lobe of the lung medially. Lungs: No evidence of focal consolidation/pneumonia. Pleural spaces: There is no evidence of pneumothorax. There are no pleural effusions present. Heart/Mediastinum: There is mild cardiomegaly. Vasculature: The aorta demonstrates moderate atherosclerotic calcification. Bones/joints: The skeletal structures and soft tissues show no evidence of fracture or other acute processes. Soft tissues: The soft tissues of the extrathoracic region are unremarkable. IMPRESSION: No definitive active cardiopulmonary disease. Dictated and Authenticated by: Yaw Hugo MD. Ordering:RAFAEL Colon MD
[2023-01-05 18:35] LABS: Bacteria Negative HPF (Negative); C & S Indicated? No; Casts Negative LPF (Negative); Crystals Negative HPF (Negative); Epithelial Cells Rare HPF (Negative); Mucus Negative (Negative); RBC 0-2 HPF (0-2); WBC 0-2 HPF (0-5)
[2023-01-05] MEDS: Ondansetron 4 MG/2 ML VIAL IVP (20:16)
[2023-01-05 20:59] LABS: Troponin I 213 ng/L (<or=60)
--- NOTE | 2023-01-05 21:10 | HPE_ITS ---
Date of service: 01/05/23 Time of Service: 21:10 Assessment and Plan Assessment and plan (1) Elevated troponin: Status: Acute Assessment and plan: And repeat troponin levels approximately the same as it was 4 hours ago. We will recheck again tomorrow morning. He has a history of coronary artery dis ease. Electrocardiogram shows no acute changes at this time. He has been given aspirin 324 mg and will continue on 81 mg daily. His troponin continues to be elevated further cardiac evaluation may be indicated. (2) Nausea & vomiting: Status: Acute Assessment and plan: Nausea is improved with ondansetron. This nausea could be a reflection of coronary artery disease. We will continue ondansetron at this time and started him on clear fluids. I do not detect any significant neurologic problem at the present time. He did have a head CT in November of last year. If he continues having nausea and vomiting and head CT or MRI may be indicated. I will check an abdominal flat and upright films today. (3) Hypomagnesemia: Status: Acute Assessment and plan: He is being given magnesium intravenously and this will be rechecked tomorrow. Etiology of this is not clear except that it could be due to his poor intake over the last few days. (4) Cognitive changes: Status: Acute Assessment and plan: According to his son there has been significant changes with his cognition over the last 2 years which has been worsening recently. He may need further evaluation for this. History of Present Illness History of Present Illness Chief Complaint: Lightheadedness, nausea and abnormal troponin. Narrative: This 77-year-old male presented to the emergency department with lightheadedness, abdominal pain and nausea. He has a history of coronary artery disease, and diabetes mellitus. He had coronary artery bypass graft about 10 years ago. He normally goes to the [facility] in [place]. He said he was here recently and they adjusted his diabetic medicines. He says it is well until about 3 days ago when he began having lightheadedness without s headache. She then developed some nausea and vomiting. Yesterday he had retching. Today he vomited twice. There is no hematemesis. He had 2 bowel movements yesterday which she says is normal. He does not complain of any vertigo. He is not having abdominal pain now but he was having abdominal pain earlier. He says the pain has been in the center of his abdomen without radiation to the sides or to the back. He is here with his son today. He presented to the emergency departm ent was found to have a low magnesium of 1.3 and a troponin of 211 but no other abnormalities were noted for blood testing, chest x-ray or urinalysis. Electrocardiogram did not show any acute changes. Emergency department consulted with cardiology at [facility] who suggested doing serial troponins and to consider stress testing depending on how he does clinically. They did not think transfer for catheterization was indicated at this time. He states that he gets chest pain approximately 4 times a week and lasts for a minute or 2 and goes away. He says that pain is not associated with any physical activity, radiation dyspnea or diaphoresis. He stated a recent visit to the doctor at the [facility] in [place] but states that he did not tell the doctor about his chest pain. His son acknowledges that he has been having increasing problems with memory over the last 2 years and that he forgets everything. The patient does acknowledge that he is forgetful. He states he has had his COVID vaccines but has not had a flu vaccine this season. He has not been around anyone else that has been ill. He lives with his . His son lives across the street. He denies use of tobacco or alcohol. 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 Previous surgeries include appendectomy and coronary artery bypass graft. The nurse reported to me that he had been on Ozempic for his diabetes mellitus but apparently this was not sent to him as part of his medicines and has not taken it for 2 weeks. Review of Systems Constitutional Constitutional: Denies body ache(s), Denies chills, Denies excessive sweating, Denies fever(s) and Denies headache(s) ENT Ears, Nose, Mouth, and Throat: Reports dizziness and Denies headache(s) Cardiovascular Cardiovascular: Reports chest pain at rest, Denies syncope, Denies edema, Denies irregular heart rhythm, Reports lightheadedness and Denies palpitations Respiratory Respiratory: Reports cough and Denies hemoptysis Gastrointestinal Gastrointestinal: Reports abdominal pain, Denies diarrhea, Reports nausea, Reports vomiting and Denies hematemesis Genitourinary Genitourinary: Denies hematuria, Denies difficulty urinating, Denies dysuria, Denies urinary frequency and Denies urinary urgency Neurologic Neurologic: Denies abnormal speech, Reports dizziness, Denies syncope, Denies headache(s) and Reports memory loss Psychiatric Psychiatric: Reports memory loss Endocrine Endocrine: Denies excessive sweating and Denies palpitations PFSH All Active Problems (Updated 01/05/23 @ 21:33 by Qasim Kahn MD) Cognitive changes (Acute) Hypomagnesemia (Acute) Elevated troponin (Acute) Nausea & vomiting (Acute) Medical History Diabetes HTN (hypertension) Surgical History History of appendectomy Hx of CABG Social History Smoking/Tobacco Use Status: Former Tobacco Use Smoking risk assessment performed?: Yes Alcohol Intake: never Substance use type: does not use Do you feel safe in your relationship?: Yes Meds Allergies and Home Medications Allergies Allergy/AdvReac Type Severity Reaction Status Date / Time No Known Allergies Allergy Unverified 01/05/23 17:40 Home Medications Medication Instructions Recorded Confirmed Type lisinopril 5 mg tablet 20 mg PO DAILY AM 10/18/16 01/05/23 History meclizine 12.5 mg tablet (Antivert) 12.5 mg PO TID PRN PRN ##10 05/07/17 01/05/23 Rx amlodipine 5 mg tablet 5 mg PO DAILY 02/24/20 01/05/23 History atorvastatin 10 mg tablet 10 mg PO DAILY 02/24/20 01/05/23 History cyanocobalamin (vitamin B-12) 1,000 mcg PO DAILY 02/24/20 01/05/23 History 1,000 mcg capsule dulaglutide 0.75 mg/0.5 mL 0.75 mg subcut QWEEK 02/24/20 01/05/23 History subcutaneous pen injector (Trulicity) empagliflozin 25 mg tablet 25 mg PO DAILY 02/24/20 01/05/23 History gabapentin 300 mg capsule 300 mg PO BID 02/24/20 01/05/23 History metoprolol succinate 25 mg 25 mg PO BID 02/24/20 01/05/23 History tablet,extended release 24 hr omeprazole 20 mg tablet,delayed 20 mg PO BID 02/24/20 01/05/23 History release ropinirole 0.5 mg tablet 0.25 mg PO .QHS 02/24/20 01/05/23 History meclizine 12.5 mg tablet 12.5 mg PO TID PRN dizziness #14 11/23/22 01/05/23 Rx tabs diphenhydramine HCl 25 mg capsule 25 mg PO BID 01/05/23 01/05/23 History (Benadryl) Exam Const Nutritional Appearance: average body habitus Orientation: alert, awake and oriented x3 Other: He knew that it was SaturdayJanuary 05 or 2022. He knew the current president is Chato, previous 1 of [place]. Previous president he named Wilner, and then Tank then Pio. Obviously the last 2 are incorrect. or serial sevens he gave me the followin, 93, 86, 9. Eyes EOM: EOM intact bilaterally Neck Neck: normal visual inspection, full ROM, no lymphadenopathy and no JVD Resp Auscultation: clear to auscultation bilaterally Cardio Rate: regular rate Rhythm: regular rhythm Heart Sounds: S1 normal, S2 normal, no gallops and no murmurs GI Palpation: soft, no hepatosplenomegaly, not firm, no guarding and nontender Neuro Cranial Nerves: CN's II-XI intact bilaterally Motor: muscle tone normal throughout Other: He does seem to have a slight tremor in his head. Extrem General: no clubbing, no cyanosis and no edema Results Labs Result diagrams: 01/05/23 17:30 01/05/23 17:30 Labs: Laboratory Results - last 24 hr 01/05/23 01/05/23 01/05/23 17:30 17:30 17:35 WBC 9.11 RBC 3.92 L Hgb 12.6 L Hct 37.6 L MCV 96 H MCH 32.1 MCHC 33.5 RDW 12.2 Plt Count 233 MPV 9.9 Immature Gran % 0.2 Neutrophils % 72.8 Lymphocytes % 17.3 Monocytes % 6.4 Eosinophils % 3.0 Basophils % 0.3 Nucleated RBC % 0.0 Absolute Neutrophils 6.63 Absolute Lymphocytes 1.58 Absolute Monocytes 0.58 Absolute Eosinophils 0.27 Absolute Basophils 0.03 Sodium 141 Potassium 4.3 Chloride 105 Carbon Dioxide 28.4 Anion Gap 7.6 BUN 19 H Creatinine 1.5 H Est GFR (CKD-EPI 2020) 47.65 Glucose 192 H Calcium 8.4 L Magnesium 1.3 L Total Bilirubin 0.3 AST 23 ALT 24 Alkaline Phosphatase 78 Troponin I 211 H* Total Protein 6.8 Albumin 3.4 Urine Color Urine Clarity Urine pH Ur Specific Alpha Urine Protein Urine Ketones Urine Blood Urine Nitrite Urine Bilirubin Urine Urobilinogen Ur Leukocyte Esterase Urine RBC Urine WBC Ur Epithelial Cells Urine Crystals Urine Bacteria Urine Casts Urine Mucus Ur Culture Indicated? Urine Glucose COVID-19 Source Nasopharynx SARS-CoV-2 (PCR) Negative Influenza Type A (PCR) Negative Influenza Type B (PCR) Negative RSV (PCR) Negative 01/05/23 01/05/23 18:20 20:30 WBC RBC Hgb Hct MCV MCH MCHC RDW Plt Count MPV Immature Gran % Neutrophils % Lymphocytes % Monocytes % Eosinophils % Basophils % Nucleated RBC % Absolute Neutrophils Absolute Lymphocytes Absolute Monocytes Absolute Eosinophils Absolute Basophils Sodium Potassium Chloride Carbon Dioxide Anion Gap BUN Creatinine Est GFR (CKD-EPI 2020) Glucose Calcium Magnesium Total Bilirubin AST ALT Alkaline Phosphatase Troponin I 213 H* Total Protein Albumin Urine Color Yellow Urine Clarity Clear Urine pH 6.5 Ur Specific Alpha 1.020 Urine Protein Negative Urine Ketones Negative Urine Blood Trace-intact H Urine Nitrite Negative Urine Bilirubin Negative Urine Urobilinogen 0.2 Ur Leukocyte Esterase Negative Urine RBC 0-2 Urine WBC 0-2 Ur Epithelial Cells Rare Urine Crystals Negative Urine Bacteria Negative Urine Casts Negative Urine Mucus Negative Ur Culture Indicated? No Urine Glucose >=1000 H COVID-19 Source SARS-CoV-2 (PCR) Influenza Type A (PCR) Influenza Type B (PCR) RSV (PCR) Last Vital Signs Temp 36.8 C 01/05/23 17:01 Pulse 64 01/05/23 21:05 Resp 14 01/05/23 21:03 BP 134/59 L 01/05/23 21:01 Pulse Ox 100 01/05/23 21:03 Time Spent Time spent with Patient: 40-54 minutes Time was spent: preparing to see the patient(eg.review tests) and ordering medications,tests, procedures
[2023-01-05 21:17] LABS: Lipase 26 U/L (16-77)
[2023-01-05] MEDS: MAGNESIUM SULFATE 1 GM/100 ML BAG IVPB (22:25)
--- NOTE | 2023-01-05 22:34 | DI.VRAD_ITS ---
PROCEDURE INFORMATION: Exam: XR Abdomen Exam date and time: 01/05/2023 10:13 PM Age: 77 years old Clinical indication: Nausea and vomiting TECHNIQUE: Imaging protocol: Radiologic exam of the abdomen. Views: 2 Views. Upright and supine views. COMPARISON: XR PORTABLE CHEST AP 01/05/2023 5:54 PM FINDINGS: Tubes, catheters and devices: There are sternal wires consistent with previous sternotomy incision. Lungs: The visualized portions of the lung bases are unremarkable. Heart/Mediastinum: Surgical clips present at the GE junction. Gastrointestinal tract: There multiple diverticula present within the distal transverse and descending as well as sigmoid colon containing oral contrast. There is a nonspecific bowel gas pattern. No evidence of bowel obstruction. Intraperitoneal space: There is no free intraperitoneal air. Organs: The organs are unremarkable. Bones/joints: Moderate degenerative changes of the lumbosacral spine present. Mild degenerative changes sacroiliac joints and hips bilaterally. The spine, sacroiliac joints, and hip joints show no evidence of fracture or other acute processes. Other findings: There are no soft tissue masses or calcifications. IMPRESSION: No acute abdominal process identfied. Dictated and Authenticated by: Yaw Hugo MD. Ordering:HASMUKH Tripp MD
[2023-01-05] MEDS: rOPINIRole 0.5 MG TAB 0.25 MG PO (23:11)
[2023-01-05] MEDS: Enoxaparin 40 MG/0.4 ML SYR SC (23:12)
[2023-01-06] VITALS (10 sets, daily range): BP systolic 118–141; BP diastolic 54–72; PULSE 52–68; RESP 14–16; TEMP 36–36.2; O2SAT 95–99
[2023-01-06] MEDS: Normal Saline Flush 10 ML SYR IVP (03:38)
[2023-01-06] MEDS: Ondansetron 4 MG/2 ML VIAL IVP (03:38)
[2023-01-06 06:55] LABS: Magnesium 1.6 mg/dL (1.8-2.4)
[2023-01-06 07:02] LABS: Troponin I 185 ng/L (<or=60)
[2023-01-06] MEDS: Omeprazole 20 MG CAPCR PO (10:06)
[2023-01-06] MEDS: Gabapentin 300 MG CAP PO (10:06)
[2023-01-06] MEDS: amLODIPine 5 MG TAB PO (10:06)
[2023-01-06] MEDS: Aspirin E.C. 81 MG TABEC PO (10:06)
[2023-01-06] MEDS: Empaglifozin 25 MG TAB PO (10:06)
[2023-01-06] MEDS: Lisinopril 20 MG TAB PO (10:07)
[2023-01-06] MEDS: Meclizine 25 MG TAB PO (12:03)
[2023-01-06] MEDS: MAGNESIUM SULFATE 2 GM/50 ML BAG IVPB (12:04)
--- NOTE | 2023-01-06 12:54 | PDOC.CMIN ---
- If Service Date Differs Date of service: 01/06/23 Time of Service: 12:54 Care Management Initial Assess REASON FOR HOSPITALIZATION:: Abnormal troponin, lightheadedness, nausea PAST MEDICAL HISTORY/PAST SURGICAL HISTORY:: Cognitive changes (Acute). Hypomagnesemia (Acute). Elevated troponin (Acute). Nausea & vomiting (Acute). Medical History . Diabetes. HTN (hypertension). Surgical History . History of appendectomy. Hx of CABG PREVIOUS FUNCTIONAL STATUS/SOCIAL/FAMILY SUPPORTS:: Sebastian resides in [place] with his of 52 years, Escobar. They have a large, supportive family including 6 children, (4 daughter's and 2 son's) though they lost a daughter to [place] about five years ago. They have many grandchildren and great-grandchildren. 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 CURRENT FUNCTIONAL STATUS:: Sebastian is up independently in his room. He is pleasant in interaction and forthcoming with information. He is lying in bed when meets with him, and discusses his family history and time in the service at [facility]. Sebastian shares that he is [facility]% [facility] connected and was exposed to agent orange. Review of community based supports; Sebastian expressed interest in MOW and [facility] options counseling; referral to be provided. ADVANCE DIRECTIVES:: None on file. Has patient been provided with info about the portal/API?: Yes Did the patient sign up for the portal?: No CODE STATUS:: Full Code INSURANCE COVERAGE / FINANCIAL ISSUES:: [facility] CURRENT HOME/COMMUNITY SERVICES/EQUIPMENT:: [place] PRIMARY CARE PHYSICIAN:: Zeny Diaz: [place] POTENTIAL DISCHARGE NEEDS:: Possible neuro consult due to family report of worsening cognition. PATIENT/FAMILY EDUCATION NEEDS:: Discuss Ask me 3 questions to assure patient understanding of reason for hospitalization and knowledge of self care needs upon discharge. ANTICIPATED BARRIERS TO DISCHARGE:: None anticipated at this time. TRANSPORTATION:: Via private vehicle with son. PLAN:: Anticipate Sebastian will return home with his family when ready per MD. Additional services to be reviewed, as Sebastian states his struggles with vertigo. Anticipate neuro consult or follow up as well-possibly through [facility] PCP order. He will transport via private vehicle with family.
--- NOTE | 2023-01-06 14:18 | DSE_ITS ---
Date of service: 01/06/23 Time of Service: 14:19 DS: Diagnosis Discharge Diagnosis (1) Elevated troponin: Status: Acute (2) Nausea & vomiting: Status: Acute (3) Hypomagnesemia: Status: Acute (4) Cognitive changes: Status: Acute Discharge Plan Disposition Patient Disposition: Home Condition: Stable Discharge Details Reason For Visit: Abnormal Troponin, Lightheadedness, Nausea Admit Date/Time: 01/05/23 20:58 Admit Provider: Qasim Kahn Attending Provider: Qasim Kahn Primary Care Provider: Zeny Diaz Hospital Course Hospital Course: This is a 77-year-old male patient of the [facility] in [facility] with a past medical history significant for hypertension diabetes CABG who presents to the emergency department with a 3 to 4-day history of generalized weakness nausea vomiting and abdominal discomfort. He was not experiencing any chest pain but his emergency department work-up did include cardiac component with troponin and EKG. His troponin was noted to be slightly elevated at 200 his EKG showed no acute ST segment changes. He denied any chest pain. They repeated his troponin which remained flat. They ultimately consulted [facility] which had no capacity and [facility] who did not feel his symptoms seemed to be consistent with acute coronary syndrome. Patient was noted to be dehydrated likely from his GI illness so recommendations were to hydrate him trend troponin and set him up for further cardiology work-up once his GI illness has resolved. He was admitted to the medical surgical unit under hospitalist services he remained in telemetry with no dysrhythmia. Troponins remained flat he was given IV fluids and antiemetics and in the morning his symptoms had improved dramatically. They checked orthostatic vital signs which were normal with no evidence of orthostasis no further symptoms. His diet was advanced which he tolerated well. He did receive a dose of meclizine for dizziness for which he does have prescribed this was effective nursing was able to ambulate him in the hallway on several occasions and he remained asymptomatic. He is safe for discharge to home and will be referred back to his primary care provider for further outpatient cardiac work-up as warranted. Also family did voice concern of his cognitive decline which they report has been ongoing for over a year. There was no acute delirium but patient was noted to be a poor historian although awake alert and oriented to person place and situation. Will defer further cognitive testing to primary care provider as this does seem to be chronic and may be worsening. Will be discharged to home with the addition of a baby aspirin daily otherwise no medication changes. Discharge was discussed with Dr. Centeno Rush Meds and New Rx's Prescriptions: New aspirin 81 mg Tablet,Delayed Release (Dr/Ec) 81 mg PO DAILY Qty: 0 0RF Continued lisinopril 5 MG tablet 20 mg PO DAILY AM meclizine [Antivert] 12.5 MG tablet 12.5 mg PO TID PRN PRNQty: 10 0RF atorvastatin 10 mg Tablet 10 mg PO DAILY amlodipine 5 mg Tablet 5 mg PO DAILY ropinirole 0.5 mg Tablet 0.25 mg PO .QHS gabapentin 300 mg Capsule 300 mg PO BID metoprolol succinate 25 mg Tablet Extended Release 24 Hr 25 mg PO BID omeprazole 20 mg Tablet,Delayed Release (Dr/Ec) 20 mg PO BID empagliflozin 25 mg Tablet 25 mg PO DAILY cyanocobalamin (vitamin B-12) 1,000 mcg Capsule 1,000 mcg PO DAILY Trulicity 0.75 mg/0.5 mL Pen Injector 0.75 mg SUBCUT QWEEK meclizine 12.5 mg tablet 12.5 mg PO TID PRN (Reason: dizziness) Qty: 14 0RF diphenhydramine HCl [Benadryl] 25 mg Capsule 25 mg PO BID Discharge Instructions Instructions: Chest Pain (DC), Acute Nausea and Vomiting (DC) Additional Instructions: advance diet as tolerated. drink 6-8 glasses of water to stay well hydrataed. Stand Alone Forms: Nursing Discharge Form Referrals: eZny Diaz [Primary Care Provider] - (Please call Saturday and make an Appointment in the next 1-2 weeks For hospital discharge ) Activity:: Activity as Tolerated Equipment/Supplies:: No Equipment Needed Diet:: Carb Counting Discharge Orders Discharge Orders: Discharge Order (Routine); Ordered 01/06/23 Ordered By: Selena Knox Discharge Data Discharge Date/Time-TO BE ENTERED AT DEPARTURE: 01/06/23 16:43 DS: Summary Time Spent with Patient providing and/or coordinating discharge services: Greater than 30 minutes Status at Discharge Functional status at discharge: independent ambulation Overall status at discharge: patient is back to baseline Mental Status: mental status grossly normal Speech and Movement: speech and movement normal Mood: congruent mood Affect: normal affect Exam Const General: cooperative, comfortable, no acute distress and frail appearing Nutritional Appearance: average body habitus Orientation: alert, awake, oriented x3 and other (some mild cognitive impairment) HENMT Head: normal to inspection, normocephalic and atraumatic Face and sinus: normal facial exam Resp Effort & Inspection: normal respiratory effort Auscultation: clear to auscultation bilaterally Cardio Rate: regular rate Rhythm: regular rhythm GI Inspection: normal to inspection Palpation: soft and nontender Skin General skin exam: no rashes or lesions noted Psych Appearance: grossly normal Mental Status: mental status grossly normal Speech and Movement: speech and movement normal Mood: congruent mood Affect: normal affect Attitude: cooperative Thought Process: normal Thought Content: normal Insight: limited Judgment: limited DS: Data Vitals/I&O Vitals and I&O: Vital Signs Temperature 36.1 C L 01/06/23 11:43 Temperature Source Tympanic 01/06/23 11:43 Pulse 55 L 01/06/23 11:43 Pulse Rhythm Irregular 01/06/23 08:03 Pulse 58 L 01/05/23 18:20 Respiratory Rate 14 01/06/23 11:43 Respiratory Effort 01/06/23 08:03 Respiratory Depth Normal 01/06/23 08:03 Respiratory Pattern Normal 01/06/23 08:03 Blood Pressure 118/68 01/06/23 11:43 Blood Pressure Mean 76 01/05/23 18:16 Blood Pressure Position Supine 01/05/23 17:01 Pulse Oximetry 99 01/06/23 11:43 Oxygen Delivery Method Room Air 01/06/23 11:43 Oxygen Flow Rate 0 01/06/23 11:43 Pain Level 0 01/06/23 09:31 Comment 01/06/23 09:42 Intake & Output 01/05/23 01/06/23 01/06/23 23:59 11:59 23:59 Intake Total 1010 / 1010 130 / 370 240 / 370 Output Total 825 / 825 600 / 1300 700 / 1300 Balance 185 / 185 -470 / -930 -460 / -930 Weight 73.482 kg Intake: IV 1010 / 1010 10 / 10 Oral 120 / 360 240 / 360 Output: Urine 825 / 825 600 / 1300 700 / 1300 Other: Urine Color Yellow Yellow Straw Straw Urine Appearance Clear Clear Clear Urine Odor Normal Normal Normal Comment Void x1 in the toilet. Stool Size Large Stool Characteristics Soft Voiding Methods Toilet Toilet Toilet Data Completed and Pending Labs on day of discharge: Labs from last 24 hours 01/06/23 01/05/23 01/05/23 05:38 20:38 20:30 WBC RBC Hgb Hct MCV MCH MCHC RDW Plt Count MPV Immature Gran % Neutrophils % Lymphocytes % Monocytes % Eosinophils % Basophils % Nucleated RBC % Absolute Neutrophils Absolute Lymphocytes Absolute Monocytes Absolute Eosinophils Absolute Basophils Sodium Potassium Chloride Carbon Dioxide Anion Gap BUN Creatinine Est GFR (CKD-EPI 2020) Glucose Calcium Magnesium 1.6 L Total Bilirubin AST ALT Alkaline Phosphatase Troponin I 185 H* 213 H* Total Protein Albumin Lipase 26 Urine Color Urine Clarity Urine pH Ur Specific [place] Urine Protein Urine Ketones Urine Blood Urine Nitrite Urine Bilirubin Urine Urobilinogen Ur Leukocyte Esterase Urine RBC Urine WBC Ur Epithelial Cells Urine Crystals Urine Bacteria Urine Casts Urine Mucus Ur Culture Indicated? Urine Glucose COVID-19 Source SARS-CoV-2 (PCR) Influenza Type A (PCR) Influenza Type B (PCR) RSV (PCR) 01/05/23 01/05/23 01/05/23 18:20 17:35 17:30 WBC 9.11 RBC 3.92 L Hgb 12.6 L Hct 37.6 L MCV 96 H MCH 32.1 MCHC 33.5 RDW 12.2 Plt Count 233 MPV 9.9 Immature Gran % 0.2 Neutrophils % 72.8 Lymphocytes % 17.3 Monocytes % 6.4 Eosinophils % 3.0 Basophils % 0.3 Nucleated RBC % 0.0 Absolute Neutrophils 6.63 Absolute Lymphocytes 1.58 Absolute Monocytes 0.58 Absolute Eosinophils 0.27 Absolute Basophils 0.03 Sodium Potassium Chloride Carbon Dioxide Anion Gap BUN Creatinine Est GFR (CKD-EPI 2020) Glucose Calcium Magnesium Total Bilirubin AST ALT Alkaline Phosphatase Troponin I Total Protein Albumin Lipase Urine Color Yellow Urine Clarity Clear Urine pH 6.5 Ur Specific [place] 1.020 Urine Protein Negative Urine Ketones Negative Urine Blood Trace-intact H Urine Nitrite Negative Urine Bilirubin Negative Urine Urobilinogen 0.2 Ur Leukocyte Esterase Negative Urine RBC 0-2 Urine WBC 0-2 Ur Epithelial Cells Rare Urine Crystals Negative Urine Bacteria Negative Urine Casts Negative Urine Mucus Negative Ur Culture Indicated? No Urine Glucose >=1000 H COVID-19 Source Nasopharynx SARS-CoV-2 (PCR) Negative Influenza Type A (PCR) Negative Influenza Type B (PCR) Negative RSV (PCR) Negative 01/05/23 17:30 WBC RBC Hgb Hct MCV MCH MCHC RDW Plt Count MPV Immature Gran % Neutrophils % Lymphocytes % Monocytes % Eosinophils % Basophils % Nucleated RBC % Absolute Neutrophils Absolute Lymphocytes Absolute Monocytes Absolute Eosinophils Absolute Basophils Sodium 141 Potassium 4.3 Chloride 105 Carbon Dioxide 28.4 Anion Gap 7.6 BUN 19 H Creatinine 1.5 H Est GFR (CKD-EPI 2020) 47.65 Glucose 192 H Calcium 8.4 L Magnesium 1.3 L Total Bilirubin 0.3 AST 23 ALT 24 Alkaline Phosphatase 78 Troponin I 211 H* Total Protein 6.8 Albumin 3.4 Lipase Urine Color Urine Clarity Urine pH Ur Specific [place] Urine Protein Urine Ketones Urine Blood Urine Nitrite Urine Bilirubin Urine Urobilinogen Ur Leukocyte Esterase Urine RBC Urine WBC Ur Epithelial Cells Urine Crystals Urine Bacteria Urine Casts Urine Mucus Ur Culture Indicated? Urine Glucose COVID-19 Source SARS-CoV-2 (PCR) Influenza Type A (PCR) Influenza Type B (PCR) RSV (PCR) PFSH All Active Problems (Updated 01/05/23 @ 21:33 by Qasim Kahn MD) Cognitive changes (Acute) Hypomagnesemia (Acute) Elevated troponin (Acute) Nausea & vomiting (Acute) Medical History Diabetes HTN (hypertension) Surgical History History of appendectomy Hx of CABG Social History Smoking/Tobacco Use Status: Former Tobacco Use Smoking risk assessment performed?: Yes Alcohol Intake: never Substance use type: does not use Do you feel safe in your relationship?: Yes Time Spent with Patient Time Spent with Patient: 45-69 minutes Time was spent: preparing to see the patient(eg.review tests), obtaining and/or reviewing separately otained hiistory, referring, communicating with other health primary care md, indepentently interpreting results and counseling the patient
--- NOTE | 2023-01-06 16:23 | PDOC.CMDIS ---
- If Service Date Differs Date of service: 01/06/23 Time of Service: 16:23 LACE Index Scoring Tool - Questions: Length of Stay (in days): 1 Acuity (Admit via E.D.?): Yes E.D. Visits: 2 - Answers: Total Score: 6 Risk of Readmission: Low Risk Care Management Discharge Reason for Hospitalization: Abnormal troponin, lightheadedness, nausea Discharge Plan: Sebastian will return home with his family when ready per MD, [facility] (CM faxed DC summary to [place]). Sebastian will transport via private vehicle with his son, Alejandro. [facility] and [facility] options counseling referral completed. Patient/Family Education Needs: Sebastian verbalized appreciation for his care and verbalized looking forward to returning home. Ask Me Three discussion of self care needs reviewed. Services Needed at Discharge: Home Delivered Meals ([facility] and [facility] referral completed. )
== END 2023-01-06 16:43 | disposition home or self-care (01) ==
LOC: ER 20:18 → MS 22:11
PROVIDERS: Admitting Provider Family Medicine; Emergency Provider Physician Assistant; PCP Nurse Practitioner Family; Visit Provider Family Medicine
DX: R11.2 Nausea with vomiting, unspecified (principal); E83.42 Hypomagnesemia; E86.0 Dehydration; R00.1 Bradycardia, unspecified; R53.1 Weakness; R42 Dizziness and giddiness; E11.9 Type 2 diabetes mellitus without complications; I10 Essential (primary) hypertension; R10.9 Unspecified abdominal pain; R74.8 Abnormal levels of other serum enzymes; I25.10 Atherosclerotic heart disease of native coronary artery without angina pectoris; R41.89 Other symptoms and signs involving cognitive functions and awareness; Z20.822 Contact with and (suspected) exposure to COVID-19; Z95.1 Presence of aortocoronary bypass graft; Z79.899 Other long term (current) drug therapy
CPT/HCPCS: 36415; 80053; 83690; 87637; 93005; 96361; 96365; 96366; 96372; 96374; 96375; 99285; J1650; 71045; 74019; 81003; 81015; 83735; 84484; 85025; 93010; 99223; 99239; G0378; J2405; J3475

== ENCOUNTER 2023-01-18 16:09 | Emergency (ER) | payer OTHER, SELFPAY ==
[2023-01-18 16:13] VITALS: BP 133/57; PULSE 82; RESP 16; TEMP 36.4; O2SAT 100
--- NOTE | 2023-01-18 16:15 | RT.EKG_ITS ---
APPROVED REPORT Exam: Resting ECG Reason for Exam: abd pain over the age of 45 Patient Location: E HR:68 bpm ECG Measurements Heart Rate 68 AXIS TX 220 P -75 QRSd 77 QRS -4 QT 389 T 66 QTc 414 Conclusion Sinus or ectopic atrial rhythm...P axis (-45,135) Prolonged TX interval...TX >220, V-rate 50- 90 NSR @ 68 with prolong TX. Normal Patrick. Normal ST segment. Biphasic P wave v1 - v3. There are no significant changes compared to prior EKG performed on 01/05/2023 at 17:10.
--- NOTE | 2023-01-18 16:18 | ED.GENADUL_ITS ---
Discharge Plan Disposition Patient Disposition: Home Condition: Good Discharge Details Clinical Impression: Diverticulitis Primary Care Provider: Zeny Diaz ED Provider: Michael Dianes and New Rx's Prescriptions: New amoxicillin-pot clavulanate 875-125 mg tablet 1 tab PO BID Qty: 14 0RF Continued lisinopril 5 MG tablet 20 mg PO DAILY AM atorvastatin 10 mg Tablet 20 mg PO DAILY amlodipine 5 mg Tablet 5 mg PO DAILY ropinirole 0.5 mg Tablet 1 mg PO .QHS metoprolol succinate 25 mg Tablet Extended Release 24 Hr 12.5 mg PO DAILY omeprazole 20 mg Tablet,Delayed Release (Dr/Ec) 20 mg PO BID empagliflozin 25 mg Tablet 25 mg PO QAM cyanocobalamin (vitamin B-12) 1,000 mcg Capsule 1,000 mcg PO DAILY meclizine 12.5 mg tablet 12.5 mg PO TID PRN (Reason: dizziness) Qty: 14 0RF aspirin 81 mg Tablet,Delayed Release (Dr/Ec) 81 mg PO DAILY Qty: 0 0RF cyanocobalamin (vitamin B-12) 1,000 mcg/mL Solution 1,000 mcg IM DIRECTED Rx Instructions: weekly x4 Lactobacillus acidophilus Capsule 1 cap PO TID magnesium oxide 400 mg magnesium Tablet 400 mg PO DAILY metformin 500 mg Tablet Extended Release 24hr 1,000 mg PO BID semaglutide 0.25 mg or 0.5 mg(2 mg/1.5 mL) Pen Injector 0.25 mg SUBCUT DIRECTED Rx Instructions: weekly calcium carbonate [Calcium 500] 500 mg calcium (1,250 mg) Tablet,Chewable 400 mg PO PRN PRN nitroglycerin 0.4 mg Tablet, Sublingual 0.4 mg sublingual DIRECTED vitamin B complex Capsule 1 cap PO DAILY Discharge Instructions Instructions: Diverticulitis (ED), Diverticulitis Diet (ED) Additional Instructions: You were seen in the ED for lower abdominal pain. Your laboratory studies, vital signs, exam are reassuring. Your CT scan confirms recurrent diverticulitis with no evidence of abscess or perforation. You have been started on an antibiotic which you will need to take for 1 week. You may use acetaminophen for any discomfort you may have. You should follow-up with primary care next week. Return to the emergency department if you develop worsening pain, vomiting, fever, bloody stool, other concerns. Medical Decision Making Patient presenting to ED with abdominal pain described as lower central in nature on and off for 3 weeks worse today. No fever. Occasional nausea and vomiting. Tender in the left lower quadrant without guarding. Consider diverticulitis, cystitis, unlikely to be bowel obstruction, has already had appendix out. EKG from triage is unchanged. We will plan IV with fluids, laboratory studies, urinalysis, CT scan abdomen pelvis. Patient declines anything for pain or nausea. Patient's laboratory studies with normal white count and a stable anemia. Has some renal insufficiency which is also stable. Lipase is slightly elevated at 107 but LFTs are normal. Urinalysis negative except for glucose. CT scan of the abdomen pelvis shows uncomplicated acute diverticulitis of the distal descending and proximal sigmoid colon. Discussed findings and treatment with patient and son. Questions answered. Patient started on Augmentin and given first dose here. Follow-up with primary care next week for recheck. Return precautions provided. Lab Data Lab results reviewed: Yes I reviewed the patient's lab results. ECG Data Attestation: I personally reviewed and interpreted this ECG (s) as follows: Prior ECG tracings: available for review Interpretation: see EKG, no changes HPI General Mode of arrival: ambulatory . Date/Time Provider Initiated Documentation: 01/18/23 16:14 . Limitations to Documentation: no limitations . Information obtained by: patient . HPI Narrative: Patient presents to ED with central lower abdominal pain that has been present on and off for almost 3 weeks. Pain seems worse today. He has had episodes of nausea and dry heaves. He has chronic loose stool secondary to his medications for diabetes. He denies any significant change in his stool. Occasionally sees black stool but not consistently and denies any bloody stool. There is no radiation of the pain. He has had no fever. He continues to eat and drink okay. No pain with urination and no hematuria. He is status post appendectomy in the past. Related Data Home Medications Medication Instructions Recorded Confirmed lisinopril 5 mg tablet 20 mg PO DAILY AM 10/18/16 01/18/23 amlodipine 5 mg tablet 5 mg PO DAILY 02/24/20 01/18/23 atorvastatin 10 mg tablet 20 mg PO DAILY 02/24/20 01/05/23 cyanocobalamin (vitamin B-12) 1,000 mcg PO DAILY 02/24/20 01/18/23 1,000 mcg capsule empagliflozin 25 mg tablet 25 mg PO QAM 02/24/20 01/18/23 metoprolol succinate 25 mg 12.5 mg PO DAILY 02/24/20 01/18/23 tablet,extended release 24 hr omeprazole 20 mg tablet,delayed 20 mg PO BID 02/24/20 01/18/23 release ropinirole 0.5 mg tablet 1 mg PO .QHS 02/24/20 01/18/23 meclizine 12.5 mg tablet 12.5 mg PO TID PRN dizziness #14 11/23/22 01/05/23 tabs aspirin 81 mg tablet,delayed 81 mg PO DAILY #0 tabs 01/06/23 01/18/23 release Lactobacillus acidophilus 1 cap PO TID 01/18/23 01/18/23 amoxicillin 875 mg-potassium 1 tab PO BID #14 tabs 01/18/23 clavulanate 125 mg tablet calcium carbonate 500 mg calcium 400 mg PO PRN PRN 01/18/23 01/18/23 (1,250 mg) chewable tablet (Calcium 500) cyanocobalamin (vitamin B-12) 1,000 mcg IM DIRECTED 01/18/23 01/18/23 1,000 mcg/mL injection solution magnesium oxide 400 mg PO DAILY 01/18/23 01/18/23 metformin 500 mg tablet,extended 1,000 mg PO BID 01/18/23 01/18/23 release 24hr nitroglycerin 0.4 mg sublingual 0.4 mg sublingual DIRECTED 01/18/23 01/18/23 tablet semaglutide 0.25 mg or 0.5 mg (2 0.25 mg subcut DIRECTED 01/18/23 01/18/23 mg/1.5 mL) subcutaneous pen injector vitamin B complex 1 cap PO DAILY 01/18/23 01/18/23 Previous Rx's Medication Instructions Recorded meclizine 12.5 mg tablet 12.5 mg PO TID PRN dizziness #14 11/23/22 tabs aspirin 81 mg tablet,delayed 81 mg PO DAILY #0 tabs 01/06/23 release amoxicillin 875 mg-potassium 1 tab PO BID #14 tabs 01/18/23 clavulanate 125 mg tablet Allergies Allergy/AdvReac Type Severity Reaction Status Date / Time No Known Allergies Allergy Unverified 01/18/23 17:26 General CHANDRA: 3 Review of Systems Narrative: per HPI PFSH All Active Problems (Updated 01/18/23 @ 18:08 by Michael Diane MD) Diverticulitis (Chronic) Cognitive changes (Acute) Hypomagnesemia (Acute) Elevated troponin (Acute) Nausea & vomiting (Acute) Medical History Diabetes HTN (hypertension) Surgical History History of appendectomy Hx of CABG Social History Smoking/Tobacco Use Status: Former Tobacco Use Smoking risk assessment performed?: Yes Alcohol Intake: never Substance use type: does not use Do you feel safe at home: Yes Do you feel safe in your relationship?: Yes Exam Narrative Exam Narrative: Const: WDWN elderly male in NAD. HEENT: NC/AT. Normal facial exam. Eyes: Normal conjunctiva and sclera. Neck: Supple. Trachea midline. Lungs: Normal respiratory effort. Lungs are clear. Cor: RRR without murmur/gallop. Good radial pulses. GI: Soft. ND. Tender without guarding left lower quadrant. Neuro: A+O x 3. Normal speech, mentation, gait. Cranial nerves II - XII grossly intact. No gross motor or sensory deficit. Ext: No C/C/E. Skin: Warm and dry without rash.
--- NOTE | 2023-01-18 16:30 | DI.CT_ITS ---
Exam(s) CT ABDOMEN PELVIS W EXAM: CT ABDOMEN PELVIS W CLINICAL HISTORY: LLQ tenderness. TECHNIQUE: Imaging Protocol: Axial computed tomography images with coronal and sagittal reformatted images were created and reviewed CONTRAST MATERIAL: Intravenous: Omnipaque 350 Contrast volume:100 ml Oral: no COMPARISON: No exams were available for comparison FINDINGS: ABDOMEN: Lung Bases: Normal where visualized. Sternal wires. Heart mildly enlarged. Liver: Normal density. No measurable mass. Gallbladder and biliary tract: Gallbladder is contracted no radiodense calculus or dilation. Pancreas: Normal density, no abnormal calcifications or inflammatory process. Spleen: Normal. Kidneys: Normal size, contour and axis. No radiodense stones or obstructive uropathy. Smart renal cy sts. No masses seen. Adrenal glands: No masses seen. Abdominal Aorta: Abdominal portion non-dilated. Atherosclerotic changes. Stomach and small bowel: Stomach nearly empty. Small duodenal diverticulum, descending portion. PELVIS: Bladder: No gross wall thickening. No calculi.No focal mass. Bowel: Diverticulosis of the lower descending and sigmoid colon. Wall thickening of the sigmoid and slight stranding consistent with mild diverticulitis. No evidence of perforation or abscess. Peritoneal cavity: No ascites, collection or mesenteric inflammatory response. Bones: Within normal limits for age. Reproductive organs: Within normal limits. Lymph nodes: Unremarkable. Impression: Mild diverticulitis junction of descending and sigmoid colon. RADIATION DOSE DELIVERED: 879.94mGy.cm Total DLP DATA REPOSITORY: All CT scans at this facility are submitted to the National Radiology Data Registry (NRDR) Dose Index Registry (DIR) with the [employer] (A[employer]). RADIATION OPTIMIZATION: All CT scans at this facility use at least one of these dose optimization te chniques: automated exposure control; mA and/or kV adjustment per patient size (includes targeted exa ms where dose is matched to clinical indication); or iterative reconstruction.
[2023-01-18] MEDS: Normal Saline 1,000 ML 1000 ML IV (16:40)
[2023-01-18 16:43] LABS: Abs Immature Grans 0.04 10^3/uL (0.0-0.06); Absolute Basophil Count 0.02 10^3/uL (0.0-0.2); Absolute Monocyte Count 0.67 10^3/uL (0.1-0.8); Absolute Neutrophil Count 6.29 10^3/uL (1.2-6.7); Basophils % 0.2; Eosinophils % 3.3; HCT 39.3 % (40.0-50.0); HGB 12.8 g/dL (13.5-17.5); Immature Grans % 0.4; Lymphocytes % 18.8; MCH 31.4 pg (27.0-33.0); MCHC 32.6 % (32.0-36.0); MCV 96 fL (80-95); MPV 9.8 fL (8.0-11.0); Monocytes % 7.4; Neutrophils % 69.9; Platelet Count 264 10^3/uL (130-400); RBC 4.08 10^6/uL (4.36-5.78); RDW 12.2 % (11.8-14.1); RDW-SD 43.7 fL; WBC 9.02 10^3/uL (4.4-10.8)
[2023-01-18 16:49] LABS: Bilirubin Negative (Negative); Blood Negative (Negative); Clarity Clear (Clear); Glucose 500 mg/dL (Negative); Ketones Negative (Negative); Leukocyte Esterase Negative (Negative); Nitrite Negative (Negative); Urobilinogen 0.2 mg/dL (Up to 0.2); pH 5.5 (5-8)
[2023-01-18 16:56] LABS: ALT 23 U/L (16-63); AST 18 U/L (15-37); Albumin 3.7 g/dL (3.4-5.0); Alkaline Phosphatase 86 U/L (46-116); Anion Gap 7.1 mmol/L (3-11); BUN 23 mg/dL (7-18); Bilirubin, Total 0.3 mg/dL (0.2-1.0); CO2 28.9 mmol/L (21.0-32.0); CREATININE 1.6 mg/dL (0.70-1.30); Calcium 9.2 mg/dL (8.5-10.1); Chloride 102 mmol/L (98-107); Glucose 191 mg/dL (74-106); Lipase 107 U/L (16-77); Potassium 4.2 mmol/L (3.5-5.1); Sodium 138 mmol/L (136-145); Total Protein 7.3 g/dL (6.4-8.2)
[2023-01-18] MEDS: Normal Saline - Diluent 50 ML VIAL IJ (17:28)
[2023-01-18] MEDS: Omnipaque 350 MG/ML 100 ML BTL IJ (17:28)
[2023-01-18 17:52] VITALS: PULSE 64; RESP 17; O2SAT 100
[2023-01-18 17:53] VITALS: BP 128/57; PULSE 62; RESP 15; O2SAT 100
[2023-01-18 17:54] VITALS: PULSE 63; RESP 15; O2SAT 100
--- NOTE | 2023-01-18 17:57 | DI.VRAD_ITS ---
PROCEDURE INFORMATION: Exam: CT Abdomen And Pelvis With Contrast Exam date and time: 01/18/2023 5:25 PM Age: 77 years old Clinical indication: Other: Llq tenderness TECHNIQUE: Imaging protocol: Computed tomography of the abdomen and pelvis with contrast. Contrast material: 350; Contrast volume: 100 ml; Contrast route: INTRAVENOUS (IV); COMPARISON: CR XR ABDOMEN FLAT UPRIGHT 01/05/2023 10:13 PM FINDINGS: Heart: There is calcification of the mitral valve annulus. Liver: Normal. No mass. Gallbladder and bile ducts: Normal. No calcified stones. No ductal dilation. Pancreas: Normal. No ductal dilation. Spleen: Normal. No splenomegaly. Adrenal glands: Normal. No mass. Kidneys and ureters: 2.2 cm simple cyst right kidney . No follow-up imaging recommended . Stomach and bowel: Diverticulosis and Bowel wall thickening at the junction of the descending colon and rectosigmoid colon. Mild pericolonic inflammatory changes .. No evidence of perforation or abscess formation or bleeding. Findings consistent with acute diverticulitis. Appendix: No evidence of appendicitis. Intraperitoneal space: Unremarkable. No free air. No significant fluid collection. Vasculature: Unremarkable. No abdominal aortic aneurysm. Lymph nodes: Unremarkable. No enlarged lymph nodes. Urinary bladder: Unremarkable as visualized. Reproductive: Unremarkable as visualized. Bones/joints: Median sternotomy Soft tissues: Unremarkable. IMPRESSION: Diverticulosis and Bowel wall thickening at the junction of the descending colon and rectosigmoid colon. Mild pericolonic inflammatory changes .. No evidence of perforation or abscess formation or bleeding. Findings consistent with acute diverticulitis. Dictated and Authenticated by: Lesvia Suarez MD. Ordering:SHAW Rodriguez MD
[2023-01-18 18:00] VITALS: PULSE 62; RESP 18; O2SAT 100
[2023-01-18 18:01] VITALS: BP 124/58; PULSE 60; PULSE 61; RESP 16; O2SAT 100
[2023-01-18] MEDS: Amoxicillin 875/Clav. 125 TAB PO (18:11)
== END 2023-01-18 18:23 | disposition home or self-care (01) ==
PROVIDERS: Emergency Provider Emergency Medicine; PCP Nurse Practitioner Family
DX: K57.32 Diverticulitis of large intestine without perforation or abscess without bleeding (principal); R74.8 Abnormal levels of other serum enzymes; N28.9 Disorder of kidney and ureter, unspecified; D64.9 Anemia, unspecified; I10 Essential (primary) hypertension; E11.9 Type 2 diabetes mellitus without complications; Z95.1 Presence of aortocoronary bypass graft; Z79.84 Long term (current) use of oral hypoglycemic drugs
CPT/HCPCS: 36415; 80053; 83690; 93005; 96360; 99285; 74177; 81003; 85025; 93010; 99284; J3490

== ENCOUNTER 2024-01-31 12:01 | Emergency (ER) | payer OTHER, SELFPAY ==
[2024-01-31 12:02] VITALS: BP 111/75; PULSE 57; RESP 15; TEMP 36.5; O2SAT 97
--- NOTE | 2024-01-31 12:30 | ED.GENADUL_ITS ---
Discharge Plan Discharge Details Chief Complaint: Orthopedic Primary Care Provider: Zeny Diaz ED Provider: Imani Palmer Home Meds and New Rx's Prescriptions: No Action lisinopril 5 MG tablet 20 mg PO DAILY AM atorvastatin 10 mg Tablet 20 mg PO DAILY amlodipine 5 mg Tablet 2.5 mg PO DAILY ropinirole 0.5 mg Tablet 1 mg PO .QHS metoprolol succinate 25 mg Tablet Extended Release 24 Hr 12.5 mg PO DAILY omeprazole 20 mg Tablet,Delayed Release (Dr/Ec) 20 mg PO BID empagliflozin 25 mg Tablet 25 mg PO QAM cyanocobalamin (vitamin B-12) 1,000 mcg Capsule 1,000 mcg PO DAILY meclizine 12.5 mg tablet 12.5 mg PO TID PRN (Reason: dizziness) Qty: 14 0RF aspirin 81 mg Tablet,Delayed Release (Dr/Ec) 81 mg PO DAILY Qty: 0 0RF cyanocobalamin (vitamin B-12) 1,000 mcg/mL Solution 1,000 mcg IM DIRECTED Rx Instructions: weekly x4 Lactobacillus acidophilus Capsule 1 cap PO TID magnesium oxide 400 mg magnesium Tablet 400 mg PO DAILY metformin 500 mg Tablet Extended Release 24hr 1,000 mg PO BID calcium carbonate [Calcium 500] 500 mg calcium (1,250 mg) Tablet,Chewable 400 mg PO PRN PRN nitroglycerin 0.4 mg Tablet, Sublingual 0.4 mg sublingual DIRECTED vitamin B complex Capsule 1 cap PO DAILY sertraline 25 mg Tablet 25 mg PO DAILY HPI General Date/Time Provider Initiated Documentation: 01/31/24 12:12 . HPI Narrative: Sebastian is a 78-year-old male with history of CABG and T2DM presents to the emergency department today for evaluation of left hip pain. He reports that pain started 3 days ago, is aggravated by walking or movement of the leg. He denies associated fever/chills, trauma, distal numbness/tingling, abdominal pain, change in bowel or bladder function, saddle anesthesia, leg weakness, recent tick bites. He is able to ambulate normally, but does report that he has the pain in his hip. Pain is located to the posterior hip right above the buttock, does not radiate. No known history of back trauma or hip trauma. He did fall 2 days ago, says he fell forward and landed on his hands, says that this did not aggravate the hip pain. He ambulates with a cane. PCP is at [facility]. Related Data Home Medications Medication Instructions Recorded Confirmed lisinopril 5 mg tablet 20 mg PO DAILY AM 10/18/16 01/31/24 amlodipine 5 mg tablet 2.5 mg PO DAILY 02/24/20 01/31/24 atorvastatin 10 mg tablet 20 mg PO DAILY 02/24/20 01/31/24 cyanocobalamin (vitamin B-12) 1,000 mcg PO DAILY 02/24/20 01/31/24 1,000 mcg capsule empagliflozin 25 mg tablet 25 mg PO QAM 02/24/20 01/31/24 metoprolol succinate 25 mg 12.5 mg PO DAILY 02/24/20 01/31/24 tablet,extended release 24 hr omeprazole 20 mg tablet,delayed 20 mg PO BID 02/24/20 01/31/24 release ropinirole 0.5 mg tablet 1 mg PO .QHS 02/24/20 01/31/24 meclizine 12.5 mg tablet 12.5 mg PO TID PRN dizziness #14 11/23/22 01/31/24 tabs aspirin 81 mg tablet,delayed 81 mg PO DAILY #0 tabs 01/06/23 01/31/24 release Lactobacillus acidophilus 1 cap PO TID 01/18/23 01/31/24 calcium carbonate 500 mg calcium 400 mg PO PRN PRN 01/18/23 01/31/24 (1,250 mg) chewable tablet (Calcium 500) cyanocobalamin (vitamin B-12) 1,000 mcg IM DIRECTED 01/18/23 01/31/24 1,000 mcg/mL injection solution magnesium oxide 400 mg PO DAILY 01/18/23 01/31/24 metformin 500 mg tablet,extended 1,000 mg PO BID 01/18/23 01/31/24 release 24hr (osmotic) nitroglycerin 0.4 mg sublingual 0.4 mg sublingual DIRECTED 01/18/23 01/31/24 tablet sertraline 25 mg tablet 25 mg PO DAILY 01/18/23 01/31/24 vitamin B complex 1 cap PO DAILY 01/18/23 01/31/24 Previous Rx's Medication Instructions Recorded meclizine 12.5 mg tablet 12.5 mg PO TID PRN dizziness #14 11/23/22 tabs aspirin 81 mg tablet,delayed 81 mg PO DAILY #0 tabs 01/06/23 release Allergies Allergy/AdvReac Type Severity Reaction Status Date / Time No Known Allergies Allergy Unverified 01/31/24 12:07 General Stated Complaint: Orthopedic CHANDRA: 4 Review of Systems Narrative: see HPI Exam Const General: cooperative, healthy appearing, comfortable and no acute distress GI Inspection: normal to inspection Palpation: soft and nontender Back/Spine/Pelvis Cervical Spine: normal cervical lordosis and cervical ROM normal Thoracic/Lumbar Spine: thoracic and lumbar spine normal to inspection Pelvis: no pain with anterior-posterior compression and buttock tenderness on the right Sacrum: no tenderness Coccyx: no tenderness Skin General skin exam: no rashes or lesions noted Extrem General: normal to inspection, abnormal ROM (decreased abduction to R hip), capillary refill normal, no muscle atrophy and no pedal edema Right lower extremity: hip/thigh Details: tenderness (to R buttock); no deformity and no unusual warmth Course Vital Signs Vital signs: Vital Signs Temperature 36.5 C 01/31/24 12:02 Pulse 57 L 01/31/24 12:02 Respiratory Rate 15 01/31/24 12:02 Blood Pressure 111/75 01/31/24 12:02 Pulse Oximetry 97 01/31/24 12:02 Temperature 36.5 C 01/31/24 12:02 Temperature Source Temporal Artery Scan 01/31/24 12:02 Pulse 57 L 01/31/24 12:02 Respiratory Rate 15 01/31/24 12:02 Respiratory Effort Normal 01/31/24 12:06 Blood Pressure 111/75 01/31/24 12:02 Blood Pressure Position Sitting 01/31/24 12:02 Pulse Oximetry 97 01/31/24 12:02 Oxygen Delivery Method Room Air 01/31/24 12:02 Oxygen Flow Rate 0 01/31/24 12:02 Pain Level 8 01/31/24 12:02 Medical Decision Making Sebastian is a 78-year-old male with history of CABG and T2DM presents to the emergency department today for evaluation of left hip pain. He reports that pain started 3 days ago, is aggravated by walking or movement of the leg. He denies associated fever/chills, trauma, distal numbness/tingling, abdominal pain, change in bowel or bladder function, saddle anesthesia, leg weakness, recent tick bites. He is able to ambulate normally, but does report that he has the pain in his hip. Pain is located to the posterior hip right above the buttock, does not radiate. No known history of back trauma or hip trauma. He did fall 2 days ago, says he fell forward and landed on his hands, says that this did not aggravate the hip pain. He ambulates with a cane. PCP is at [facility]. Physical exam very reassuring. Tenderness with palpation to the left buttock. No overlying erythema/warmth. No midline tenderness/step-off/deformity to C-spine/T-spine/L-spine. He does have pain with abduction of hip. 5 out of 5 muscle strength to lower extremities, sensation intact bilaterally. Abdomen is soft, nondistended, nontender to palpation. DDx includes but is not limited to hip or pelvic fracture, osteoarthritis, less likely sciatica, muscle strain, bursitis, tendinitis, other soft tissue injury. No red flags on history or physical examination concerning for septic arthritis or other serious etiology of hip pain requiring blood work. I independently interpreted the following tests: Please call hip and pelvis x- rays, no acute fracture noted. This was confirmed by radiologist Likely muscular connective tissue etiology. Recommend follow-up with orthopedics for further evaluation and management. Reviewed discharge instructions with patient and his son, they are agreeable with plan of care. Imaging Data Radiologic Study: Radiologist's impression: Exam(s) XR HIP PELVIS ADULT BL EXAM: XR HIP PELVIS ADULT BL CLINICAL HISTORY: atraumatic L hip pain x 3 days. TECHNIQUE: 2D digital imaging was performed of the pelvis and bilateral hips. Four images were obtained. AP pelvis and lateral views of both hips were obtained. COMPARISON: CR,XR XR ABDOMEN FLAT UPRIGHT from 01/05/2023 FINDINGS: BONES: No acute fracture is present. No bony destructive lesion is seen. JOINTS: No dislocation present. There is mild acetabular spurring bilaterally. There is mild narrowing of the superior joint space of the hips, left greater than right. The sacroiliac joints are well maintained as is the symphysis pubis. There are mild degenerative changes seen in the L4-L5 disc space. SOFT TISSUE: Vascular calcifications are present. IMPRESSION: 1. Mild degenerative changes of the hips, left greater than right. 2. No acute fracture or dislocation. Quality:SDOH Health Related Social Needs: No Data to Display PFSH All Active Problems (Updated 02/18/23 @ 00:16 by ISABEL BURCIAGA) Cognitive changes (Acute) Hypomagnesemia (Acute) Elevated troponin (Acute) Nausea & vomiting (Acute) Medical History Diabetes HTN (hypertension) Surgical History History of appendectomy Hx of CABG Social History Smoking/Tobacco Use Status: Former Tobacco Use Smoking risk assessment performed?: Yes Alcohol Intake: never Drug use: Never Substance use type: does not use Do you feel safe at home: Yes Do you feel safe in your relationship?: Yes
--- NOTE | 2024-01-31 12:59 | DI.RAD_ITS ---
Exam(s) XR HIP PELVIS ADULT BL EXAM: XR HIP PELVIS ADULT BL CLINICAL HISTORY: atraumatic L hip pain x 3 days. TECHNIQUE: 2D digital imaging was performed of the pelvis and bilateral hips. Four images were obta ined. AP pelvis and lateral views of both hips were obtained. COMPARISON: CR,XR XR ABDOMEN FLAT UPRIGHT from 01/05/2023 FINDINGS: BONES: No acute fracture is present. No bony destructive lesion is seen. JOINTS: No dislocation present. There is mild acetabular spurring bilaterally. There is mild narrowi ng of the superior joint space of the hips, left greater than right. The sacroiliac joints are well maintained as is the symphysis pubis. There are mild degenerative changes seen in the L4-L5 disc spa ce. SOFT TISSUE: Vascular calcifications are present. IMPRESSION: 1. Mild degenerative changes of the hips, left greater than right. 2. No acute fracture or dislocation. DATA REPOSITORY: RADIATION DOSE DELIVERED:
== END 2024-01-31 14:47 | disposition home or self-care (01) ==
PROVIDERS: Emergency Provider Nurse Practitioner Family; PCP Nurse Practitioner Family
DX: M25.552 Pain in left hip (principal); E11.9 Type 2 diabetes mellitus without complications; I10 Essential (primary) hypertension; Z95.0 Presence of cardiac pacemaker; Z79.82 Long term (current) use of aspirin; Z79.84 Long term (current) use of oral hypoglycemic drugs; Z87.891 Personal history of nicotine dependence
CPT/HCPCS: 73521; 99283

== ENCOUNTER 2025-02-14 08:52 | Emergency (ER) | payer OTHER, SELFPAY ==
[2025-02-14] VITALS (23 sets, daily range): BP systolic 136–166; BP diastolic 36–54; PULSE 55–67; RESP 12–20; TEMP 36.4–36.7; O2SAT 96–100
[2025-02-14 09:23] LABS: Abs Immature Grans 0.06 10^3/uL (0.0-0.06); Absolute Monocyte Count 0.95 10^3/uL (0.1-0.8); Absolute Neutrophil Count 10.88 10^3/uL (1.2-6.7); Basophils % 0.1 %; HCT 39.6 % (40.0-50.0); HGB 13.4 g/dL (13.5-17.5); Immature Grans % 0.4 %; Lymphocytes % 11.7 %; MCH 31.7 pg (27.0-33.0); MCHC 33.8 % (32.0-36.0); MCV 94 fL (80-95); MPV 9.7 fL (8.0-11.0); Neutrophils % 79.8 %; Platelet Count 253 10^3/uL (130-400); RBC 4.23 10^6/uL (4.36-5.78); RDW 12.5 % (11.8-14.1); RDW-SD 42.9 fL; WBC 13.64 10^3/uL (4.4-10.8)
[2025-02-14 09:25] LABS: Absolute Basophil Count 0.01 10^3/uL (0.0-0.2); Absolute Eosinophil Count 0.14 10^3/uL (0.0-0.7)
[2025-02-14] MEDS: Ondansetron 4 MG/2 ML VIAL IVP (09:25)
[2025-02-14] MEDS: Normal Saline 1,000 ML 1000 ML IV (09:25)
--- NOTE | 2025-02-14 09:31 | ED.GENADUL_ITS ---
Discharge Plan Disposition Patient Disposition: Home Condition: Stable Discharge Details Clinical Impression: Nausea & vomiting, Dehydration, mild Primary Care Provider: Zeny Diaz ED Provider: Violeta Proctor Home Meds and New Rx's Prescriptions: New ondansetron 4 mg tablet,disintegrating 4 mg PO Q6H PRN (Reason: nausea and vomiting) Qty: 30 0RF ondansetron 4 mg tablet,disintegrating 4 mg PO Q6H PRN (Reason: nausea and vomiting) Qty: 30 0RF No Action lisinopril 5 MG tablet 20 mg PO DAILY AM [facility] Comments: [facility] atorvastatin 10 mg Tablet 20 mg PO DAILY amlodipine 5 mg Tablet 2.5 mg PO DAILY Patient Comments: not [facility] metoprolol succinate 25 mg Tablet Extended Release 24 Hr 12.5 mg PO DAILY Patient Comments: not [facility] omeprazole 20 mg Tablet,Delayed Release (Dr/Ec) 20 mg PO DAILY empagliflozin 25 mg Tablet 25 mg PO QAM cyanocobalamin (vitamin B-12) 1,000 mcg Capsule 1,000 mcg PO DAILY meclizine 12.5 mg tablet 12.5 mg PO TID PRN (Reason: dizziness) Qty: 14 0RF Patient Comments: [facility] aspirin 81 mg Tablet,Delayed Release (Dr/Ec) 81 mg PO DAILY Qty: 0 0RF Patient Comments: not [facility] Lactobacillus acidophilus Capsule 1 cap PO TID Patient Comments: not [facility] magnesium oxide 400 mg magnesium Tablet 400 mg PO DAILY Patient Comments: not [facility] metformin 500 mg Tablet Extended Release 24hr 1,000 mg PO BID calcium carbonate [Calcium 500] 500 mg calcium (1,250 mg) Tablet,Chewable 400 mg PO PRN PRN Patient Comments: not [facility] nitroglycerin 0.4 mg Tablet, Sublingual 0.4 mg sublingual DIRECTED vitamin B complex Capsule 1 cap PO DAILY diclofenac sodium 1 % gel 2 g topical QID PRN Rx Instructions: apply to single elbow, wrist or hand; for hand includes palm/fingers/back of hand donepezil [Aricept] 10 mg tablet 10 mg PO QHS multivitamin [Daily Multi-Vitamin] Tablet 1 tab PO DAILY loperamide 2 mg capsule 2 mg PO Q6H PRN Discharge Instructions Instructions: Nausea and Vomiting, Adult ED Additional Instructions: You were evaluated today for nausea and vomiting. Your lab work does not show any signs of overwhelming infection, organ derangement, you do have some signs of mild dehydration and were given IV fluids. You have been prescribed some Zofran medication to take at home. Please let 1 of these tabs dissolve on your tongue every 4-6 hours as needed for any persistent nausea. Make sure you start drinking lots of fluids, Gatorade and Pedialyte are good choices in addition to water. Advance your diet slowly as tolerated, if you are not keeping any medication down or food down, please return to the emergency department. Please make sure to check your blood sugar before giving yourself insulin and keep a log of your blood sugar for your primary care provider. HPI General Date/Time Provider Initiated Documentation: 02/14/25 08:54 . Limitations to Documentation: no limitations . Information obtained by: patient . HPI Narrative: 79-year-old gentleman with past medical history of hyperlipidemia, dementia, diabetes on insulin presents for evaluation of vomiting and diarrhea. He reports that he has had several days of vomiting. He has had limited oral intake and is only eating toast and drinking Pedialyte. He reports soft to watery stools though is only experiencing 1 episode per day. Denies any fever. Denies any significant abdominal pain. Daughter reports that his mentation has been decreasing and today he had some significant weakness and had a lot of difficulty getting out of his chair. He has been giving himself his daily insulin and though he has not been eating very much. He has not been taking his blood sugar. This morning he did not give himself any insulin. Related Data Home Medications ?Medication ?Instructions ?Recorded ?Confirmed lisinopril 5 mg tablet 20 mg PO DAILY AM 10/18/16 01/31/24 amlodipine 5 mg tablet 2.5 mg PO DAILY 02/24/20 01/31/24 atorvastatin 10 mg tablet 20 mg PO DAILY 02/24/20 02/14/25 cyanocobalamin (vitamin B-12) 1,000 mcg PO DAILY 02/24/20 02/14/25 1,000 mcg capsule empagliflozin 25 mg tablet 25 mg PO QAM 02/24/20 02/14/25 metoprolol succinate 25 mg 12.5 mg PO DAILY 02/24/20 01/31/24 tablet,extended release 24 hr omeprazole 20 mg tablet,delayed 20 mg PO DAILY 02/24/20 02/14/25 release meclizine 12.5 mg tablet 12.5 mg PO TID PRN dizziness #14 11/23/22 01/31/24 tabs aspirin 81 mg tablet,delayed 81 mg PO DAILY #0 tabs 01/06/23 01/31/24 release Lactobacillus acidophilus 1 cap PO TID 01/18/23 01/31/24 calcium carbonate (Calcium 500) 400 mg PO PRN PRN 01/18/23 01/31/24 magnesium oxide 400 mg PO DAILY 01/18/23 01/31/24 metformin 500 mg tablet,extended 1,000 mg PO BID 01/18/23 02/14/25 release 24hr (osmotic) nitroglycerin 0.4 mg sublingual 0.4 mg sublingual DIRECTED 01/18/23 02/14/25 tablet vitamin B complex 1 cap PO DAILY 01/18/23 02/14/25 diclofenac sodium 1 % topical gel 2 g topical QID PRN 02/14/25 02/14/25 donepezil 10 mg tablet (Aricept) 10 mg PO QHS 02/14/25 02/14/25 loperamide 2 mg capsule 2 mg PO Q6H PRN 02/14/25 02/14/25 multivitamin (Daily Multi-Vitamin 1 tab PO DAILY 02/14/25 02/14/25 tablet) ondansetron 4 mg disintegrating 4 mg PO Q6H PRN nausea and 02/14/25 tablet vomiting #30 tabs ondansetron 4 mg disintegrating 4 mg PO Q6H PRN nausea and 02/14/25 tablet vomiting #30 tabs Previous Rx's ?Medication ?Instructions ?Recorded meclizine 12.5 mg tablet 12.5 mg PO TID PRN dizziness #14 11/23/22 tabs aspirin 81 mg tablet,delayed 81 mg PO DAILY #0 tabs 01/06/23 release ondansetron 4 mg disintegrating 4 mg PO Q6H PRN nausea and 02/14/25 tablet vomiting #30 tabs ondansetron 4 mg disintegrating 4 mg PO Q6H PRN nausea and 02/14/25 tablet vomiting #30 tabs Allergies Allergy/AdvReac Type Severity Reaction Status Date / Time No Known Allergies Allergy Unverified 02/14/25 09:02 General Stated Complaint: GenMedical CHANDRA: 3 Exam Narrative Exam Narrative: Review of Systems: All systems reviewed & are unremarkable except as noted in HPI and below Well-developed, ill-appearing NCAT Mild dry mucous membranes RRR no murmur Unlabored respiratory effort clear bilaterally Nondistended abdomen soft nontender Extremities w/o edema No rashes or lesions. no focal neurologic deficits Flat affect, slow responses but alert and oriented Course Vital Signs Vital signs: Vital Signs Temperature 36.4 C L 02/14/25 08:56 Pulse 67 02/14/25 08:56 Respiratory Rate 14 02/14/25 08:56 Blood Pressure 166/44 H 02/14/25 08:56 Pulse Oximetry 98 02/14/25 08:56 Temperature 36.4 C L 02/14/25 09:06 Temperature Source Oral 02/14/25 09:06 Pulse 60 02/14/25 09:06 Respiratory Rate 14 02/14/25 09:06 Blood Pressure 148/36 H 02/14/25 09:06 Blood Pressure Position Sitting 02/14/25 09:06 Pulse Oximetry 98 02/14/25 09:06 Oxygen Delivery Method Room Air 02/14/25 09:06 Oxygen Flow Rate 0 02/14/25 09:06 Pain Level 0 02/14/25 09:06 Lab/Test Results Lab/Test Results: Laboratory Tests Range/Units 02/14/25 09:15 WBC (4.4-10.8) 10^3/uL 13.64 H RBC (4.36-5.78) 10^6/uL 4.23 L Hgb (13.5-17.5) g/dL 13.4 L Hct (40.0-50.0) % 39.6 L MCV (80-95) fL 94 MCH (27.0-33.0) pg 31.7 MCHC (32.0-36.0) % 33.8 RDW (11.8-14.1) % 12.5 Plt Count (130-400) 10^3/uL 253 MPV (8.0-11.0) fL 9.7 Immature Gran % % 0.4 Neutrophils % % 79.8 Lymphocytes % % 11.7 Monocytes % % 7.0 Eosinophils % % 1.0 Basophils % % 0.1 Nucleated RBC % (0.0-0.3) % 0.0 Absolute Neutrophils (1.2-6.7) 10^3/uL 10.88 H Absolute Lymphocytes (1.2-3.4) 10^3/uL 1.60 Absolute Monocytes (0.1-0.8) 10^3/uL 0.95 H Absolute Eosinophils (0.0-0.7) 10^3/uL 0.14 Absolute Basophils (0.0-0.2) 10^3/uL 0.01 Medical Decision Making Emergent evaluation of vomiting and diarrhea. The patient's symptoms have been ongoing for several days. Initial differential includes viral illness, metabolic derangement, electrolyte abnormality, dehydration. Patient has a benign abdominal exam and have a low suspicion for an acute intra-abdominal process. Plan for lab work, IV fluids. Lab work reviewed there is mild leukocytosis, likely shift from vomiting. No significant anemia. Renal function is at baseline. There is mild hyperglycemia without any evidence of DKA. No other electrolyte derangement. Urinalysis without any evidence of infection. Patient received IV fluids and antiemetics. He was observed in the emergency department and encouraged to drink fluids. After this, the patient significantly better and was discharged home in good condition. Prescription for Zofran was sent to the pharmacy. Return precautions advised. Advise close follow-up with PCP. Quality:SDOH Health Related Social Needs: No Data to Display PFSH All Active Problems (Updated 02/14/25 @ 12:49 by Violeta Proctor MD) Dehydration, mild (Acute) Cognitive changes (Acute) Hypomagnesemia (Acute) Elevated troponin (Acute) Nausea & vomiting (Acute) Medical History Diabetes HTN (hypertension) Surgical History History of appendectomy Hx of CABG Social History Smoking/Tobacco Use Status: Former Tobacco Use Smoking risk assessment performed?: Yes Alcohol Intake: never Drug use: Never Substance use type: does not use Do you feel safe at home: Yes Do you feel safe in your relationship?: Yes
[2025-02-14 09:35] LABS: Lipase 64 U/L (<78)
[2025-02-14 09:43] LABS: ALT 30 U/L (16-63); AST 27 U/L (15-37); Albumin 3.4 g/dL (3.4-5.0); Alkaline Phosphatase 76 U/L (46-116); Anion Gap 7.9 mmol/L (3-11); BUN 26 mg/dL (7-18); Bilirubin, Total 0.6 mg/dL (0.2-1.0); CO2 29.1 mmol/L (21.0-32.0); CREATININE 1.4 mg/dL (0.70-1.30); Calcium 8.5 mg/dL (8.5-10.1); Chloride 104 mmol/L (98-107); Estimated GFR 51.13 (mL/min/1.73m2); Glucose 195 mg/dL (74-106); Magnesium 1.3 mg/dL; Potassium 3.8 mmol/L (3.5-5.1); Sodium 141 mmol/L (136-145); Total Protein 7.4 g/dL (6.4-8.2)
[2025-02-14 11:06] LABS: Bilirubin Negative (Negative); Blood Negative (Negative); Clarity Sl Cloudy (Clear); Glucose 250 mg/dL (Negative); Ketones 15 mg/dL (Negative); Leukocyte Esterase Negative (Negative); Nitrite Negative (Negative); Specific Gravity >= 1.030 (1.005-1.025); Urobilinogen 0.2 mg/dL (Up to 0.2); pH 5.5 (5-8)
[2025-02-14 11:29] LABS: Bacteria Rare HPF (Negative); Crystals Rare Amorphous HPF (Negative); Epithelial Cells Rare HPF (Negative); RBC Negative HPF (0-2); WBC Negative HPF (0-5)
[2025-02-14 11:30] LABS: C & S Indicated? No; Casts Negative LPF (Negative); Mucus Trace (Negative)
== END 2025-02-14 12:52 | disposition home or self-care (01) ==
PROVIDERS: Emergency Provider Emergency Medicine; PCP Nurse Practitioner Family
DX: R11.2 Nausea with vomiting, unspecified (principal); E86.0 Dehydration; R53.1 Weakness; I10 Essential (primary) hypertension
CPT/HCPCS: 36415; 36416; 80053; 82962; 83690; 96361; 96374; 99284; 81003; 81015; 83735; 85025; J2405

== ENCOUNTER 2025-04-07 15:30 | Emergency (ER) | payer OTHER, SELFPAY ==
[2025-04-07] VITALS (28 sets, daily range): BP systolic 80–143; BP diastolic 39–111; PULSE 56–147; RESP 12–20; TEMP 36.5; O2SAT 88–100
--- NOTE | 2025-04-07 15:30 | RT.EKG_ITS ---
APPROVED REPORT Exam: Resting ECG Reason for Exam: weak Patient Location: E HR:64 bpm ECG Measurements Heart Rate 64 AXIS NV 206 P -21 QRSd 79 QRS -8 QT 425 T 84 QTc 439 Conclusion Sinus rhythm. 64 normal axis no stemi
[2025-04-07 15:59] LABS: Abs Immature Grans 0.06 10^3/uL (0.0-0.06); Absolute Basophil Count 0.02 10^3/uL (0.0-0.2); Absolute Eosinophil Count 0.18 10^3/uL (0.0-0.7); Absolute Lymphocyte Count 1.97 10^3/uL (1.2-3.4); Absolute Monocyte Count 0.78 10^3/uL (0.1-0.8); Absolute Neutrophil Count 7.32 10^3/uL (1.2-6.7); Basophils % 0.2 %; Eosinophils % 1.7 %; HCT 40.4 % (40.0-50.0); HGB 13.9 g/dL (13.5-17.5); Immature Grans % 0.6 %; Lymphocytes % 19.1 %; MCH 32.3 pg (27.0-33.0); MCHC 34.4 % (32.0-36.0); MCV 94 fL (80-95); MPV 9.8 fL (8.0-11.0); Monocytes % 7.6 %; Neutrophils % 70.8 %; Platelet Count 310 10^3/uL (130-400); RBC 4.31 10^6/uL (4.36-5.78); RDW 12.8 % (11.8-14.1); RDW-SD 44.2 fL; WBC 10.33 10^3/uL (4.4-10.8)
--- NOTE | 2025-04-07 16:15 | DI.CT_ITS ---
Exam(s) CT HEAD WO EXAM: CT HEAD WO CLINICAL HISTORY: Dizziness. TECHNIQUE: Imaging Protocol: Axial computed tomography images with coronal and sagittal reformatted images were created and reviewed COMPARISON: CT CT HEAD WO from 11/23/2022 FINDINGS: There are no skull fractures. There is no fluid in the visualized paranasal sinuses. There is no evidence of intracranial hemorrhage, mass effect, or shift of midline structures. There are no extra-axial fluid collections. The ventricles are not enlarged or shifted and there is no blo od within the ventricular system nor within the basal cisterns. There is vascular calcification again noted in the vertebral arteries at the skull base. Also within the intracavernous internal carotid arteries. Again noted is prominent bilateral periventricular hypodensity consistent with chronic small vessel d isease. No new obvious territorial infarct. IMPRESSION: No acute intracranial findings on this noninfused CT scan of the brain. Prominent bilateral perivent ricular hypodensity again noted consistent with chronic small vessel disease, similar to prior CT sca n of 11/23/2022. Report called by myself to ER provider 04/07/2025 at 5:01 p.m. RADIATION DOSE DELIVERED: 902.12mGy.cm Total DLP DATA REPOSITORY: All CT scans at this facility are submitted to the National Radiology Data Registry (NRDR) Dose Index Registry (DIR) with the [employer] ([employer]). RADIATION OPTIMIZATION: All CT scans at this facility use at least one of these dose optimization te chniques: automated exposure control; mA and/or kV adjustment per patient size (includes targeted exa ms where dose is matched to clinical indication); or iterative reconstruction.
--- NOTE | 2025-04-07 16:15 | DI.RAD_ITS ---
Exam(s) XR CHEST 2V PA LATERAL EXAM: XR CHEST 2V PA LATERAL CLINICAL HISTORY: Dizziness, weakness. TECHNIQUE: 2D digital imaging was performed. COMPARISON: CR,XR XR PORTABLE CHEST AP from 01/05/2023 FINDINGS: 2 views: Sternotomy wires are again noted. Heart size is normal. The mediastinum is not widened. Right lung is clear. There are mild increased markings behind the left side of the heart in the infr ahilar region, possibly significant. No pleural effusions No evidence of pulmonary edema. IMPRESSION: Sternotomy. Normal heart size. No pulmonary edema nor pleural effusions. Density in the left infrahilar region measuring approximately 1.8 x 1.7 cm, not evident on prior stud y of 01/05/2023. Possible infiltrate versus is lung lesion. Recommend follow-up chest CT scan. DATA REPOSITORY: RADIATION DOSE DELIVERED:
[2025-04-07 16:23] LABS: ALT 28 U/L (16-63); AST 25 U/L (15-37); Albumin 3.5 g/dL (3.4-5.0); Alkaline Phosphatase 73 U/L (46-116); Anion Gap 10.3 mmol/L (3-11); BUN 36 mg/dL (7-18); Bilirubin, Total 0.5 mg/dL (0.2-1.0); CO2 24.7 mmol/L (21.0-32.0); CREATININE 1.8 mg/dL (0.70-1.30); Calcium 8.1 mg/dL (8.5-10.1); Chloride 103 mmol/L (98-107); Estimated GFR 37.58 (mL/min/1.73m2); Glucose 189 mg/dL (74-106); Lipase 40 U/L (<78); Magnesium 1.2 mg/dL (1.8-2.4); NT-proBNP 236 pg/mL (<300); Potassium 4.2 mmol/L (3.5-5.1); Sodium 138 mmol/L (136-145); Total Protein 7.3 g/dL (6.4-8.2); Troponin I 11 ng/L (<or=76)
[2025-04-07 16:36] LABS: COVID-19 PCR Negative (Negative); Influenza A PCR Negative (Negative); Influenza B PCR Negative (Negative); RSV PCR Negative (Negative)
[2025-04-07 16:38] LABS: Bilirubin Negative (Negative); Blood Negative (Negative); Clarity Clear (Clear); Glucose 500 mg/dL (Negative); Ketones Negative (Negative); Leukocyte Esterase Negative (Negative); Nitrite Negative (Negative); Urobilinogen 0.2 mg/dL (Up to 0.2); pH 5.5 (5-8)
[2025-04-07 16:41] LABS: Source Nasopharynx
[2025-04-07 16:44] LABS: Epithelial Cells Negative HPF (Negative); RBC 0-2 HPF (0-2); WBC 0-2 HPF (0-5)
[2025-04-07 16:45] LABS: Bacteria Negative HPF (Negative); C & S Indicated? No; Crystals Negative HPF (Negative); Mucus Negative (Negative)
--- NOTE | 2025-04-07 17:00 | DI.CT_ITS ---
Exam(s) CT CHEST WO EXAM: CT CHEST WO CLINICAL HISTORY: Eval density left chest, weakness. TECHNIQUE: Multi planar reconstructions were performed. CONTRAST MATERIAL: None COMPARISON: No exams were available for comparison FINDINGS: CHEST: LUNGS: There are no infiltrates nor pleural effusions and there are no ominous pulmonary nodules. Th ere are no significant findings in the left infrahilar region to correspond to the finding described on the chest x-ray earlier same date. MEDIASTINUM: There is no obvious hilar nor mediastinal adenopathy. Visualized thyroid unremarkable.No obvious axillary adenopathy. No supraclavicular adenopathy. CARDIAC: There are sternotomy wires. Heart size is normal. Calcified mitral valve noted.Caliber of the thoracic aorta is within normal limits. VISUALIZED UPPER ABDOMEN:Cholelithiasis noted. No gallbladder wall edema nor pericholecystic fluid. No adrenal masses. OSSEOUS: No significant osseous lesions.No fractures.. IMPRESSION: 1. No significant pulmonary findings. There are no findings and CT scan to correspond to the finding described in the left infrahilar region on recent chest x-ray. There are no infiltrates, ominous pu lmonary nodules, nor pleural effusions and there is no obvious intrathoracic adenopathy. 2. There are sternotomy wires. Heart size upper normal. No pericardial effusion. 3. Gallstones incidentally noted. The gallbladder wall does not appear edematous. Report called by myself to ER 04/07/2025 at 5:27 p.m. RADIATION DOSE DELIVERED: 345.24mGy.cm Total DLP DATA REPOSITORY: All CT scans at this facility are submitted to the National Radiology Data Registry (NRDR) Dose Index Registry (DIR) with the [employer] ([employer]). RADIATION OPTIMIZATION: All CT scans at this facility use at least one of these dose optimization te chniques: automated exposure control; mA and/or kV adjustment per patient size (includes targeted exa ms where dose is matched to clinical indication); or iterative reconstruction.
[2025-04-07] MEDS: Ondansetron 4 MG/2 ML VIAL IVP (17:24)
[2025-04-07] MEDS: MAGNESIUM SULFATE 2 GM/50 ML BAG IV_INF (17:25)
[2025-04-07] MEDS: Normal Saline 500 ML IV (17:25)
[2025-04-07 17:30] LABS: Troponin I 11 ng/L (<or=76)
--- NOTE | 2025-04-07 17:37 | ED.GENADUL_ITS ---
Discharge Plan Disposition Patient Disposition: Home Condition: Stable Discharge Details Clinical Impression: Hypomagnesemia, Acute kidney injury Primary Care Provider: Zeny Diaz ED Provider: Lashawn Zavala [place] Meds and New Rx's Prescriptions: Continued lisinopril 5 MG tablet 20 mg PO DAILY AM [facility]: [facility] atorvastatin 10 mg Tablet 20 mg PO DAILY amlodipine 5 mg Tablet 2.5 mg PO DAILY Patient Comments: not [facility] metoprolol succinate 25 mg Tablet Extended Release 24 Hr 12.5 mg PO DAILY Patient Comments: not [facility] omeprazole 20 mg Tablet,Delayed Release (Dr/Ec) 20 mg PO DAILY empagliflozin 25 mg Tablet 25 mg PO QAM cyanocobalamin (vitamin B-12) 1,000 mcg Capsule 1,000 mcg PO DAILY meclizine 12.5 mg tablet 12.5 mg PO TID PRN (Reason: dizziness) Qty: 14 0RF Patient Comments: [facility] aspirin 81 mg Tablet,Delayed Release (Dr/Ec) 81 mg PO DAILY Qty: 0 0RF Patient Comments: not [facility] capsaicin [Arthritis-Muscle (capsaicin)] 0.025 % cream 1 applic topical QHS Rx Instructions: do not wash area for at least 30 min after application carboxymethylcellulose sodium 0.5 % drops 1 drp ophthalmic (eye) QID duloxetine [Cymbalta] 30 mg capsule,delayed release(DR/EC) 60 mg PO QHS melatonin 3 mg capsule 3 mg PO QHS psyllium Powder 1 tsp PO DAILY Rx Instructions: mix into at least 4 oz water or juice before administering ropinirole 1 mg tablet 1 mg PO QHS sucralfate 100 mg/mL suspension See Rx Instructions PO QID Rx Instructions: Take 1 teaspoon by mouth before meals and at bedtime for bile and/or acid reflux orally four times a day; swish in mouth and spit out; use after food and/or drink Lactobacillus acidophilus Capsule 1 cap PO TID Patient Comments: [facility] magnesium oxide 400 mg magnesium Tablet 400 mg PO DAILY Patient Comments: not [facility] metformin 500 mg Tablet Extended Release 24hr 1,000 mg PO BID calcium carbonate [Calcium 500] 500 mg calcium (1,250 mg) Tablet,Chewable 400 mg PO PRN PRN Patient Comments: not [facility] nitroglycerin 0.4 mg Tablet, Sublingual 0.4 mg sublingual DIRECTED vitamin B complex Capsule 1 cap PO DAILY diclofenac sodium 1 % gel 2 g topical QID PRN Rx Instructions: apply to single elbow, wrist or hand; for hand includes palm/fingers/back of hand donepezil [Aricept] 10 mg tablet 10 mg PO QHS multivitamin [Daily Multi-Vitamin] Tablet 1 tab PO DAILY loperamide 2 mg capsule 4 mg PO Q6H PRN ondansetron 4 mg tablet,disintegrating 4 mg PO Q6H PRN (Reason: nausea and vomiting) Qty: 30 0RF Discharge Instructions Instructions: Acute Kidney Injury (DC), Low Magnesium Level (DC) Additional Instructions: Labs show that you are dehydrated and your magnesium is quite low. This could be causing your symptoms. No evidence for infection, heart attack no abnormalities on the chest x-ray or chest CT or head CT. Please follow-up closely with your primary care provider to recheck your magnesium. Consider taking a magnesium supplement daily. Follow up with primary care provider in 3-5 days. Return to ED sooner if any worsening or concerns. Increase oral fluids he may drink electrolyte drinks such as Gatorade or similar for the next few days. Please take Tylenol or Ibuprofen with food every 4-6 hours as needed for pain and swelling. Thank you for allowing us to care for you today. Referrals: Zeny Diaz [Primary Care Provider] - 3 days HPI General Mode of arrival: ambulatory . Date/Time Provider Initiated Documentation: 04/07/25 15:33 . Limitations to Documentation: no limitations . Information obtained by: patient, RN notes reviewed and old records reviewed . HPI Narrative: 80 year old male presents to the ER with cc of generally not feeling well. The dizziness for the last 1-1/2 weeks, reports walking into [place]. Reports body aches and headache. Also reports diarrhea. No focal neurodeficits he is alert and oriented x 4, denies any blurry vision. Denies any fever chills or problems urinating. Does have a history of diabetes and hypertension history of CABG and appendectomy. Related Data Home Medications ?Medication ?Instructions ?Recorded ?Confirmed lisinopril 5 mg tablet 20 mg PO DAILY AM 10/18/16 04/07/25 amlodipine 5 mg tablet 2.5 mg PO DAILY 02/24/20 04/07/25 atorvastatin 10 mg tablet 20 mg PO DAILY 02/24/20 04/07/25 cyanocobalamin (vitamin B-12) 1,000 mcg PO DAILY 02/24/20 04/07/25 1,000 mcg capsule empagliflozin 25 mg tablet 25 mg PO QAM 02/24/20 04/07/25 metoprolol succinate 25 mg 12.5 mg PO DAILY 02/24/20 04/07/25 tablet,extended release 24 hr omeprazole 20 mg tablet,delayed 20 mg PO DAILY 02/24/20 04/07/25 release meclizine 12.5 mg tablet 12.5 mg PO TID PRN dizziness #14 11/23/22 04/07/25 tabs aspirin 81 mg tablet,delayed 81 mg PO DAILY #0 tabs 01/06/23 04/07/25 release Lactobacillus acidophilus 1 cap PO TID 01/18/23 04/07/25 calcium carbonate (Calcium 500) 400 mg PO PRN PRN 01/18/23 04/07/25 magnesium oxide 400 mg PO DAILY 01/18/23 04/07/25 metformin 500 mg tablet,extended 1,000 mg PO BID 01/18/23 04/07/25 release 24hr (osmotic) nitroglycerin 0.4 mg sublingual 0.4 mg sublingual DIRECTED 01/18/23 04/07/25 tablet vitamin B complex 1 cap PO DAILY 01/18/23 04/07/25 diclofenac sodium 1 % topical gel 2 g topical QID PRN 02/14/25 04/07/25 donepezil 10 mg tablet (Aricept) 10 mg PO QHS 02/14/25 04/07/25 loperamide 2 mg capsule 4 mg PO Q6H PRN 02/14/25 04/07/25 multivitamin (Daily Multi-Vitamin 1 tab PO DAILY 02/14/25 04/07/25 tablet) ondansetron 4 mg disintegrating 4 mg PO Q6H PRN nausea and 02/14/25 04/07/25 tablet vomiting #30 tabs capsaicin 0.025 % topical cream 1 applic topical QHS 04/07/25 04/07/25 (Arthritis-Muscle (capsaicin)) carboxymethylcellulose sodium 0.5 1 drp ophthalmic (eye) QID 04/07/25 04/07/25 % eye drops duloxetine 30 mg capsule,delayed 60 mg PO QHS 04/07/25 04/07/25 release (Cymbalta) melatonin 3 mg capsule 3 mg PO QHS 04/07/25 04/07/25 psyllium 1 tsp PO DAILY 04/07/25 04/07/25 ropinirole 1 mg tablet 1 mg PO QHS 04/07/25 04/07/25 sucralfate 100 mg/mL oral See Rx Instructions PO QID 04/07/25 04/07/25 suspension Previous Rx's ?Medication ?Instructions ?Recorded meclizine 12.5 mg tablet 12.5 mg PO TID PRN dizziness #14 11/23/22 tabs aspirin 81 mg tablet,delayed 81 mg PO DAILY #0 tabs 01/06/23 release ondansetron 4 mg disintegrating 4 mg PO Q6H PRN nausea and 02/14/25 tablet vomiting #30 tabs Allergies Allergy/AdvReac Type Severity Reaction Status Date / Time No Known Allergies Allergy Verified 04/07/25 15:33 General Stated Complaint: GenMedical CHANDRA: 3 Review of Systems All systems reviewed & are unremarkable except as noted in HPI and below Constitutional Constitutional: Reports as per HPI, Reports body ache(s), Reports headache(s) and Reports lethargy ENT Ears, Nose, Mouth, and Throat: Reports dizziness and Reports headache(s) Neurologic Neurologic: Reports dizziness and Reports headache(s) Exam Narrative Exam Narrative: Constitutional: Alert and oriented x3. Appears stated age. Normal body habitus. Head: Normocephalic, no trauma. Eyes: Pupils PERRL, Red reflex noted, EOM's intact. Eyelids symmetrical without lesions, discharge, or swelling. ENT: Bilateral TM's WNL, External ear normal to inspection, no mastoid TTP, swelling, or erythema, Nasal turbinates WNL, no nasal discharge. Normal dentition, Posterior pharynx WNL, no exudate. Chest: RRR, Normal S1, S2, distal pulses intact. Resp: Lungs clear to auscultation bilaterally, no wheezes, rales, or rhonchi. Abdomen: Soft, non-distended, Normoactive bowel sounds all 4 quads. Musculoskeletal: Normal gait, Moves all 4 extremities without difficulty. Skin: No suspicious rashes or lesions. Capillary refill less than 2 sec. Neurologic: Cranial nerves II-XII intact. Alert and oriented x 3. Motor: No deficits noted. Sensory: Intact bilaterally all 4 extremities. Hematologic/Lymphatic: No ecchymosis, no lymphadenopathy. Course Vital Signs Vital signs: Vital Signs Temperature 36.5 C 04/07/25 15:35 Pulse 63 04/07/25 15:35 Respiratory Rate 18 04/07/25 15:35 Blood Pressure 143/66 H 04/07/25 15:35 Pulse Oximetry 98 04/07/25 15:35 Temperature 36.5 C 04/07/25 15:35 Temperature Source Tympanic 04/07/25 15:35 Pulse 63 04/07/25 15:35 Respiratory Rate 18 04/07/25 15:35 Blood Pressure 143/66 H 04/07/25 15:35 Blood Pressure Position Sitting 04/07/25 15:35 Pulse Oximetry 98 04/07/25 15:35 Oxygen Delivery Method Room Air 04/07/25 15:35 Oxygen Flow Rate 0 04/07/25 15:35 Pain Level 0 04/07/25 15:44 Lab/Test Results Lab/Test Results: Laboratory Tests Range/Units 04/07/25 04/07/25 04/07/25 15:48 16:30 17:06 WBC (4.4-10.8) 10^3/uL 10.33 RBC (4.36-5.78) 10^6/uL 4.31 L Hgb (13.5-17.5) g/dL 13.9 Hct (40.0-50.0) % 40.4 MCV (80-95) fL 94 MCH (27.0-33.0) pg 32.3 MCHC (32.0-36.0) % 34.4 RDW (11.8-14.1) % 12.8 Plt Count (130-400) 10^3/uL 310 MPV (8.0-11.0) fL 9.8 Immature Gran % % 0.6 Neutrophils % % 70.8 Lymphocytes % % 19.1 Monocytes % % 7.6 Eosinophils % % 1.7 Basophils % % 0.2 Nucleated RBC % (0.0-0.3) % 0.0 Absolute Neutrophils (1.2-6.7) 10^3/uL 7.32 H Absolute Lymphocytes (1.2-3.4) 10^3/uL 1.97 Absolute Monocytes (0.1-0.8) 10^3/uL 0.78 Absolute Eosinophils (0.0-0.7) 10^3/uL 0.18 Absolute Basophils (0.0-0.2) 10^3/uL 0.02 Sodium (136-145) mmol/L 138 Potassium (3.5-5.1) mmol/L 4.2 Chloride (98-107) mmol/L 103 Carbon Dioxide (21.0-32.0) mmol/L 24.7 Anion Gap (3-11) mmol/L 10.3 BUN (7-18) mg/dL 36 H Creatinine (0.70-1.30) mg/dL 1.8 H Est GFR (CKD-EPI 2020) (mL/min/1.73m2) 37.58 Glucose (74-106) mg/dL 189 H Calcium (8.5-10.1) mg/dL 8.1 L Magnesium (1.8-2.4) mg/dL 1.2 L Total Bilirubin (0.2-1.0) mg/dL 0.5 AST (15-37) U/L 25 ALT (16-63) U/L 28 Alkaline Phosphatase (46-116) U/L 73 Troponin I (<or=76) ng/L 11 11 NT-Pro-B Natriuret Pep (<300) pg/mL 236 Total Protein (6.4-8.2) g/dL 7.3 Albumin (3.4-5.0) g/dL 3.5 Lipase (<78) U/L 40 Urine Color (Yellow) Yellow Urine Clarity (Clear) Clear Urine pH (5-8) 5.5 Ur Specific [place] (1.005-1.025) 1.010 Urine Protein (Neg-Trace) mg/dL 30 H Urine Ketones (Negative) mg/dL Negative Urine Blood (Negative) Negative Urine Nitrite (Negative) Negative Urine Bilirubin (Negative) Negative Urine Urobilinogen (Up to 0.2) mg/dL 0.2 Ur Leukocyte Esterase (Negative) Negative Urine RBC (0-2) HPF 0-2 Urine WBC (0-5) HPF 0-2 Ur Epithelial Cells (Negative) HPF Negative Urine Crystals (Negative) HPF Negative Urine Bacteria (Negative) HPF Negative Urine Mucus (Negative) Negative Urine Other (Negative) Rare [place] Ur Culture Indicated? No Urine Glucose (Negative) mg/dL 500 H COVID-19 Source Nasopharynx SARS-CoV-2 (PCR) (Negative) Negative Influenza Type A (PCR) (Negative) Negative Influenza Type B (PCR) (Negative) Negative RSV (PCR) (Negative) Negative Medical Decision Making 80 year old male presents to the ER with cc of generally not feeling well. The dizziness for the last 1-1/2 weeks, reports walking into [place]. Reports body aches and headache. Also reports diarrhea. No focal neurodeficits he is alert and oriented x 4, denies any blurry vision. Denies any fever chills or problems urinating. Does have a history of diabetes and hypertension history of CABG and appendectomy. EKG was reviewed by myself and Dr. Proctor see ER attending, old EKG available for review no significant change. No STEMI. Workup ordered including serial troponins, CBC CMP lipase urinalysis CT head and chest x-ray. Magnesium low at 1.2, will give 2 g IV piggyback magnesium, sodium 138 potassium 4.2 BUN 36 creatinine 1.8 GFR 37 which is up from his previous. No leukoc ytosis, troponins are flat at 11 4 2, proBNP within normal limits urinalysis shows no evidence of UTI. Negative COVID flu RSV. Head CT shows no acute changes chest x-ray shows no infiltrate however a questionable left hilar density, recommend chest CT chest CT ordered which shows no abnormality. On patient reevaluation he is sitting on side of bed states he feels much better and is like to be discharged home. I did notice his blood pressure was 80/52, rechecked 132/39. He denies any dizziness lightheadedness. Patient discharged in hemodynamically stable condition. He was ambulatory upon discharge. This text was generated using [employer] system, please disregard any oddities of phrase or misspellings. Medical Records Medical records reviewed: Yes I reviewed the patient's medical records. Lab Data Lab results reviewed: Yes I reviewed the patient's lab results. Labs: Laboratory Tests Range/Units 04/07/25 04/07/25 04/07/25 15:48 16:30 17:06 WBC (4.4-10.8) 10^3/uL 10.33 RBC (4.36-5.78) 10^6/uL 4.31 L Hgb (13.5-17.5) g/dL 13.9 Hct (40.0-50.0) % 40.4 MCV (80-95) fL 94 MCH (27.0-33.0) pg 32.3 MCHC (32.0-36.0) % 34.4 RDW (11.8-14.1) % 12.8 Plt Count (130-400) 10^3/uL 310 MPV (8.0-11.0) fL 9.8 Immature Gran % % 0.6 Neutrophils % % 70.8 Lymphocytes % % 19.1 Monocytes % % 7.6 Eosinophils % % 1.7 Basophils % % 0.2 Nucleated RBC % (0.0-0.3) % 0.0 Absolute Neutrophils (1.2-6.7) 10^3/uL 7.32 H Absolute Lymphocytes (1.2-3.4) 10^3/uL 1.97 Absolute Monocytes (0.1-0.8) 10^3/uL 0.78 Absolute Eosinophils (0.0-0.7) 10^3/uL 0.18 Absolute Basophils (0.0-0.2) 10^3/uL 0.02 Sodium (136-145) mmol/L 138 Potassium (3.5-5.1) mmol/L 4.2 Chloride (98-107) mmol/L 103 Carbon Dioxide (21.0-32.0) mmol/L 24.7 Anion Gap (3-11) mmol/L 10.3 BUN (7-18) mg/dL 36 H Creatinine (0.70-1.30) mg/dL 1.8 H Est GFR (CKD-EPI 2020) (mL/min/1.73m2) 37.58 Glucose (74-106) mg/dL 189 H Calcium (8.5-10.1) mg/dL 8.1 L Magnesium (1.8-2.4) mg/dL 1.2 L Total Bilirubin (0.2-1.0) mg/dL 0.5 AST (15-37) U/L 25 ALT (16-63) U/L 28 Alkaline Phosphatase (46-116) U/L 73 Troponin I (<or=76) ng/L 11 11 NT-Pro-B Natriuret Pep (<300) pg/mL 236 Total Protein (6.4-8.2) g/dL 7.3 Albumin (3.4-5.0) g/dL 3.5 Lipase (<78) U/L 40 Urine Color (Yellow) Yellow Urine Clarity (Clear) Clear Urine pH (5-8) 5.5 Ur Specific [place] (1.005-1.025) 1.010 Urine Protein (Neg-Trace) mg/dL 30 H Urine Ketones (Negative) mg/dL Negative Urine Blood (Negative) Negative Urine Nitrite (Negative) Negative Urine Bilirubin (Negative) Negative Urine Urobilinogen (Up to 0.2) mg/dL 0.2 Ur Leukocyte Esterase (Negative) Negative Urine RBC (0-2) HPF 0-2 Urine WBC (0-5) HPF 0-2 Ur Epithelial Cells (Negative) HPF Negative Urine Crystals (Negative) HPF Negative Urine Bacteria (Negative) HPF Negative Urine Mucus (Negative) Negative Urine Other (Negative) Rare [place] Ur Culture Indicated? No Urine Glucose (Negative) mg/dL 500 H COVID-19 Source Nasopharynx SARS-CoV-2 (PCR) (Negative) Negative Influenza Type A (PCR) (Negative) Negative Influenza Type B (PCR) (Negative) Negative RSV (PCR) (Negative) Negative Range/Units 04/07/25 18:43 WBC (4.4-10.8) 10^3/uL RBC (4.36-5.78) 10^6/uL Hgb (13.5-17.5) g/dL Hct (40.0-50.0) % MCV (80-95) fL MCH (27.0-33.0) pg MCHC (32.0-36.0) % RDW (11.8-14.1) % Plt Count (130-400) 10^3/uL MPV (8.0-11.0) fL Immature Gran % % Neutrophils % % Lymphocytes % % Monocytes % % Eosinophils % % Basophils % % Nucleated RBC % (0.0-0.3) % Absolute Neutrophils (1.2-6.7) 10^3/uL Absolute Lymphocytes (1.2-3.4) 10^3/uL Absolute Monocytes (0.1-0.8) 10^3/uL Absolute Eosinophils (0.0-0.7) 10^3/uL Absolute Basophils (0.0-0.2) 10^3/uL Sodium (136-145) mmol/L Potassium (3.5-5.1) mmol/L Chloride (98-107) mmol/L Carbon Dioxide (21.0-32.0) mmol/L Anion Gap (3-11) mmol/L BUN (7-18) mg/dL Creatinine (0.70-1.30) mg/dL Est GFR (CKD-EPI 2020) (mL/min/1.73m2) Glucose (74-106) mg/dL Calcium (8.5-10.1) mg/dL Magnesium (1.8-2.4) mg/dL Total Bilirubin (0.2-1.0) mg/dL AST (15-37) U/L ALT (16-63) U/L Alkaline Phosphatase (46-116) U/L Troponin I (<or=76) ng/L Cancelled NT-Pro-B Natriuret Pep (<300) pg/mL Total Protein (6.4-8.2) g/dL Albumin (3.4-5.0) g/dL Lipase (<78) U/L Urine Color (Yellow) Urine Clarity (Clear) Urine pH (5-8) Ur Specific [place] (1.005-1.025) Urine Protein (Neg-Trace) mg/dL Urine Ketones (Negative) mg/dL Urine Blood (Negative) Urine Nitrite (Negative) Urine Bilirubin (Negative) Urine Urobilinogen (Up to 0.2) mg/dL Ur Leukocyte Esterase (Negative) Urine RBC (0-2) HPF Urine WBC (0-5) HPF Ur Epithelial Cells (Negative) HPF Urine Crystals (Negative) HPF Urine Bacteria (Negative) HPF Urine Mucus (Negative) Urine Other (Negative) Ur Culture Indicated? Urine Glucose (Negative) mg/dL COVID-19 Source SARS-CoV-2 (PCR) (Negative) Influenza Type A (PCR) (Negative) Influenza Type B (PCR) (Negative) RSV (PCR) (Negative) Quality:SDOH Health Related Social Needs: No Data to Display PFSH All Active Problems (Updated 04/07/25 @ 17:57 by Lashawn Zavala NP) Acute kidney injury (Acute) Hypomagnesemia (Acute) Cognitive changes (Acute) Hypomagnesemia (Acute) Elevated troponin (Acute) Nausea & vomiting (Acute) Medical History Diabetes HTN (hypertension) Surgical History Hx of CABG History of appendectomy Social History Smoking/Tobacco Use Status: Former Tobacco Use Smoking risk assessment performed?: Yes Alcohol Intake: never Drug use: Never Substance use type: does not use Do you feel safe at home: Yes Do you feel safe in your relationship?: Yes
== END 2025-04-07 19:03 | disposition home or self-care (01) ==
PROVIDERS: Emergency Provider Registered Nurse Emergency; PCP Nurse Practitioner Family
DX: E83.42 Hypomagnesemia (principal); N17.9 Acute kidney failure, unspecified; E86.0 Dehydration
CPT/HCPCS: 36415; 71250; 80053; 83690; 87637; 93005; 96365; 96366; 96375; 99285; 70450; 71046; 81003; 81015; 83735; 83880; 84484; 85025; 93010; 99284; J2405; J3475

== ENCOUNTER 2025-09-02 10:29 | Emergency (ER) | payer OTHER, SELFPAY ==
[2025-09-02 10:49] VITALS: BP 154/69; PULSE 60; RESP 18; TEMP 36.6; O2SAT 97
[2025-09-02 10:54] VITALS: BP 154/69; PULSE 60; RESP 18; TEMP 36.6; O2SAT 97
--- NOTE | 2025-09-02 11:00 | RT.EKG_ITS ---
APPROVED REPORT Exam: Resting ECG Reason for Exam: Electrolyte abnormalities, low calcium, low mag Patient Location: E HR:72 bpm ECG Measurements Heart Rate 72 AXIS VA 189 P 50 QRSd 76 QRS 17 QT 411 T -3 QTc 448 Conclusion Sinus rhythm...normal P axis, V-rate 60- 99
[2025-09-02 11:41] LABS: Abs Immature Grans 0.02 10^3/uL (0.0-0.06); HCT 38.5 % (40.0-50.0); HGB 13.0 g/dL (13.5-17.5); Immature Grans % 0.3 %; MCH 31.8 pg (27.0-33.0); MCHC 33.8 % (32.0-36.0); MCV 94 fL (80-95); MPV 10.1 fL (8.0-11.0); Platelet Count 251 10^3/uL (130-400); RBC 4.09 10^6/uL (4.36-5.78); RDW 12.3 % (11.8-14.1); RDW-SD 42.8 fL; WBC 7.76 10^3/uL (4.4-10.8)
[2025-09-02 11:59] LABS: ALT 23 U/L (16-63); AST 18 U/L (15-37); Albumin 3.5 g/dL (3.4-5.0); Alkaline Phosphatase 83 U/L (46-116); Anion Gap 10.4 mmol/L (3-11); BUN 14 mg/dL (7-18); Bilirubin, Total 0.6 mg/dL (0.2-1.0); CO2 28.6 mmol/L (21.0-32.0); Calcium 7.7 mg/dL (8.5-10.1); Chloride 103 mmol/L (98-107); Estimated GFR 55.53 (mL/min/1.73m2); Glucose 242 mg/dL (74-106); Magnesium 0.9 mg/dL (1.8-2.4); Potassium 4.0 mmol/L (3.5-5.1); Sodium 142 mmol/L (136-145); Total Protein 7.5 g/dL (6.4-8.2)
[2025-09-02] MEDS: Calcium Carbonate 1.5 GM TAB 3 GM PO (13:33)
[2025-09-02] MEDS: MAGNESIUM SULFATE 2 GM/50 ML BAG IV_INF (13:34)
--- NOTE | 2025-09-02 14:43 | W.ED.GENAD ---
Discharge Plan Disposition Patient Disposition: Against Medical Advice Condition: Serious Discharge Details Clinical Impression: Hypomagnesemia, Hypocalcemia Primary Care Provider: Zeny Diaz ED Provider: Jose Figueroa Home Meds and New Rx's Prescriptions: New magnesium chloride [Mag-Delay] 64 mg tablet,delayed release (DR/EC) 64 mg PO DAILY 3 Days Qty: 3 0RF No Action lisinopril 5 MG tablet 20 mg PO DAILY AM [facility]: [facility] atorvastatin 10 mg Tablet 20 mg PO DAILY amlodipine 5 mg Tablet 2.5 mg PO DAILY Patient Comments: not [facility] metoprolol succinate 25 mg Tablet Extended Release 24 Hr 12.5 mg PO DAILY Patient Comments: not [facility] omeprazole 20 mg Tablet,Delayed Release (Dr/Ec) 20 mg PO DAILY empagliflozin 25 mg Tablet 25 mg PO QAM cyanocobalamin (vitamin B-12) 1,000 mcg Capsule 1,000 mcg PO DAILY meclizine 12.5 mg tablet 12.5 mg PO TID PRN (Reason: dizziness) Qty: 14 0RF Patient Comments: [facility] aspirin 81 mg Tablet,Delayed Release (Dr/Ec) 81 mg PO DAILY Qty: 0 0RF Patient Comments: not [facility] capsaicin [Arthritis-Muscle (capsaicin)] 0.025 % cream 1 applic topical QHS Rx Instructions: do not wash area for at least 30 min after application carboxymethylcellulose sodium 0.5 % drops 1 drp ophthalmic (eye) QID duloxetine [Cymbalta] 30 mg capsule,delayed release(DR/EC) 60 mg PO QHS melatonin 3 mg capsule 3 mg PO QHS psyllium Powder 1 tsp PO DAILY Rx Instructions: mix into at least 4 oz water or juice before administering ropinirole 1 mg tablet 1 mg PO QHS sucralfate 100 mg/mL suspension See Rx Instructions PO QID Rx Instructions: Take 1 teaspoon by mouth before meals and at bedtime for bile and/or acid reflux orally four times a day; swish in mouth and spit out; use after food and/or drink Lactobacillus acidophilus Capsule 1 cap PO TID Patient Comments: [facility] magnesium oxide 400 mg magnesium Tablet 400 mg PO DAILY Patient Comments: not [facility] metformin 500 mg Tablet Extended Release 24hr 1,000 mg PO BID calcium carbonate [Calcium 500] 500 mg calcium (1,250 mg) Tablet,Chewable 400 mg PO PRN PRN Patient Comments: not [facility] nitroglycerin 0.4 mg Tablet, Sublingual 0.4 mg sublingual DIRECTED vitamin B complex Capsule 1 cap PO DAILY diclofenac sodium 1 % gel 2 g topical QID PRN Rx Instructions: apply to single elbow, wrist or hand; for hand includes palm/fingers/back of hand donepezil [Aricept] 10 mg tablet 10 mg PO QHS multivitamin [Daily Multi-Vitamin] Tablet 1 tab PO DAILY loperamide 2 mg capsule 4 mg PO Q6H PRN ondansetron 4 mg tablet,disintegrating 4 mg PO Q6H PRN (Reason: nausea and vomiting) Qty: 30 0RF Discharge Instructions Instructions: Hypocalcemia, Leaving Against Medical Advice, Hypomagnesemia Additional Instructions: Medication reconciliation could not be performed today. Please take your medications as prescribed. Your calcium level is 7.7. Please take calcium carbonate 1250 mg twice a day for the next week and have this level rechecked next week. Your magnesium was severely low at 0.9. Admission was recommended and you provided informed refusal. You were given magnesium 2 g IV. Please continue to take magnesium as prescribed over the next 3 days. Please be sure to have this level rechecked by your primary care physician. Please follow-up with your primary care physician. Call today to arrange timely follow-up for early next week. Return to the emergency department immediately for any worsening or new concerning symptoms or at any time should you wish to pursue hospitalization as recommended. Referrals: Zeny Diaz [Primary Care Provider, Medicine] Discharge Data Discharge Date/Time-TO BE ENTERED AT DEPARTURE: 09/02/25 18:35 HPI General Mode of arrival: ambulatory. Date/Time Provider Initiated Documentation: 09/02/25 11:08. Limitations to Documentation: other (Dementia). Information obtained by: patient. HPI Narrative: HISTORY OF PRESENT ILLNESS The patient is an 80-year-old male with history of dementia who presents to the emergency department for hypomagnesemia. He is accompanied by his son. Two days ago, he underwent blood tests, which led to a recommendation for immediate intravenous magnesium treatment. This is not his first encounter with such a situation. His son reports that he had run out of his medication, which may have contributed to his current condition. He has been prescribed a magnesium supplements but his son feels he is probably not taking it. He has dementia and his memory has been declining. Related Data Home Medications ?Medication ?Instructions ?Recorded ?Confirmed lisinopril 5 mg tablet 20 mg PO DAILY AM 10/18/16 04/07/25 amlodipine 5 mg tablet 2.5 mg PO DAILY 02/24/20 04/07/25 atorvastatin 10 mg tablet 20 mg PO DAILY 02/24/20 04/07/25 cyanocobalamin (vitamin B-12) 1,000 mcg PO DAILY 02/24/20 04/07/25 1,000 mcg capsule empagliflozin 25 mg tablet 25 mg PO QAM 02/24/20 04/07/25 metoprolol succinate 25 mg 12.5 mg PO DAILY 02/24/20 04/07/25 tablet,extended release 24 hr omeprazole 20 mg tablet,delayed 20 mg PO DAILY 02/24/20 04/07/25 release meclizine 12.5 mg tablet 12.5 mg PO TID PRN dizziness #14 11/23/22 04/07/25 tabs aspirin 81 mg tablet,delayed 81 mg PO DAILY #0 tabs 01/06/23 04/07/25 release Lactobacillus acidophilus 1 cap PO TID 01/18/23 04/07/25 calcium carbonate (Calcium 500) 400 mg PO PRN PRN 01/18/23 04/07/25 magnesium oxide 400 mg PO DAILY 01/18/23 04/07/25 metformin 500 mg tablet,extended 1,000 mg PO BID 01/18/23 04/07/25 release 24hr (osmotic) nitroglycerin 0.4 mg sublingual 0.4 mg sublingual DIRECTED 01/18/23 04/07/25 tablet vitamin B complex 1 cap PO DAILY 01/18/23 04/07/25 diclofenac sodium 1 % topical gel 2 g topical QID PRN 02/14/25 04/07/25 donepezil 10 mg tablet (Aricept) 10 mg PO QHS 02/14/25 04/07/25 loperamide 2 mg capsule 4 mg PO Q6H PRN 02/14/25 04/07/25 multivitamin (Daily Multi-Vitamin 1 tab PO DAILY 02/14/25 04/07/25 tablet) ondansetron 4 mg disintegrating 4 mg PO Q6H PRN nausea and 02/14/25 04/07/25 tablet vomiting #30 tabs capsaicin 0.025 % topical cream 1 applic topical QHS 04/07/25 04/07/25 (Arthritis-Muscle (capsaicin)) carboxymethylcellulose sodium 0.5 1 drp ophthalmic (eye) QID 04/07/25 04/07/25 % eye drops duloxetine 30 mg capsule,delayed 60 mg PO QHS 04/07/25 04/07/25 release (Cymbalta) melatonin 3 mg capsule 3 mg PO QHS 04/07/25 04/07/25 psyllium 1 tsp PO DAILY 04/07/25 04/07/25 ropinirole 1 mg tablet 1 mg PO QHS 04/07/25 04/07/25 sucralfate 100 mg/mL oral See Rx Instructions PO QID 04/07/25 04/07/25 suspension magnesium chloride 64 mg 64 mg PO DAILY 3 days #3 tabs 09/02/25 (magnesium chloride) tablet,delayed release (Mag-Delay) Previous Rx's ?Medication ?Instructions ?Recorded meclizine 12.5 mg tablet 12.5 mg PO TID PRN dizziness #14 11/23/22 tabs aspirin 81 mg tablet,delayed 81 mg PO DAILY #0 tabs 01/06/23 release ondansetron 4 mg disintegrating 4 mg PO Q6H PRN nausea and 02/14/25 tablet vomiting #30 tabs magnesium chloride 64 mg 64 mg PO DAILY 3 days #3 tabs 09/02/25 (magnesium chloride) tablet,delayed release (Mag-Delay) Allergies Allergy/AdvReac Type Severity Reaction Status Date / Time No Known Allergies Allergy Verified 09/02/25 10:53 General Stated Complaint: GenMedical CHANDRA: 3 Review of Systems All systems reviewed & are unremarkable except as noted in HPI and below Constitutional Constitutional: Denies weakness Cardiovascular Cardiovascular: Denies chest pain Gastrointestinal Gastrointestinal: Denies abdominal pain Musculoskeletal Musculoskeletal: Denies numbness Neurologic Neurologic: Denies numbness and Denies weakness Exam Const General: cooperative and no acute distress HENMT Mouth: moist mucous membranes Eyes Conjunctivae: normal conjunctivae Sclera: normal sclerae Resp Auscultation: clear to auscultation bilaterally, no rales, no rhonchi and no wheezes Cardio Rate: regular rate and not tachycardic Rhythm: regular rhythm GI Palpation: soft, not firm, no guarding, no masses, not rigid and nontender Neuro General: patient alert, patient awake, oriented Patient Orientation: Person and Place and tone normal Cognition: abnormal cognition Extrem General: no edema Course Vital Signs Vital signs: Vital Signs Temperature 36.6 C 09/02/25 10:49 Pulse 60 09/02/25 10:49 Respiratory Rate 18 09/02/25 10:49 Blood Pressure 154/69 H 09/02/25 10:49 Pulse Oximetry 97 09/02/25 10:49 Temperature 36.6 C 09/02/25 10:54 Temperature Source Tympanic 09/02/25 10:49 Pulse 60 09/02/25 10:54 Respiratory Rate 18 09/02/25 10:54 Blood Pressure 154/69 H 09/02/25 10:54 Blood Pressure Position Sitting 09/02/25 10:49 Pulse Oximetry 97 09/02/25 10:54 Oxygen Delivery Method Room Air 09/02/25 10:49 Oxygen Flow Rate 0 09/02/25 10:49 Pain Level 0 09/02/25 10:54 Lab/Test Results Lab/Test Results: Laboratory Tests Range/Units 09/02/25 11:28 WBC (4.4-10.8) 10^3/uL 7.76 RBC (4.36-5.78) 10^6/uL 4.09 L Hgb (13.5-17.5) g/dL 13.0 L Hct (40.0-50.0) % 38.5 L MCV (80-95) fL 94 MCH (27.0-33.0) pg 31.8 MCHC (32.0-36.0) % 33.8 RDW (11.8-14.1) % 12.3 Plt Count (130-400) 10^3/uL 251 MPV (8.0-11.0) fL 10.1 Immature Gran % % 0.3 Neutrophils % % 74.4 Lymphocytes % % 16.0 Monocytes % % 5.9 Eosinophils % % 3.1 Basophils % % 0.3 Nucleated RBC % (0.0-0.3) % 0.0 Absolute Neutrophils (1.2-6.7) 10^3/uL 5.78 Absolute Lymphocytes (1.2-3.4) 10^3/uL 1.24 Absolute Monocytes (0.1-0.8) 10^3/uL 0.46 Absolute Eosinophils (0.0-0.7) 10^3/uL 0.24 Absolute Basophils (0.0-0.2) 10^3/uL 0.02 Sodium (136-145) mmol/L 142 Potassium (3.5-5.1) mmol/L 4.0 Chloride (98-107) mmol/L 103 Carbon Dioxide (21.0-32.0) mmol/L 28.6 Anion Gap (3-11) mmol/L 10.4 BUN (7-18) mg/dL 14 Creatinine (0.70-1.30) mg/dL 1.3 Est GFR (CKD-EPI 2020) (mL/min/1.73m2) 55.53 Glucose (74-106) mg/dL 242 H Calcium (8.5-10.1) mg/dL 7.7 L Magnesium (1.8-2.4) mg/dL 0.9 L Total Bilirubin (0.2-1.0) mg/dL 0.6 AST (15-37) U/L 18 ALT (16-63) U/L 23 Alkaline Phosphatase (46-116) U/L 83 Total Protein (6.4-8.2) g/dL 7.5 Albumin (3.4-5.0) g/dL 3.5 Medical Decision Making ASSESSMENT AND PLAN Initial Assessment: 80-year-old male with history of dementia, here with complaint of hypomagnesemia, noncompliant with medications. Differential Diagnosis: - Hypomagnesemia: Ran out of magnesium medication. Plan to check electrolytes and replace magnesium if necessary. - Dementia: History of dementia with memory decline. Disoriented to time and place. ED Course: - Blood work obtained to check electrolytes. - Patient with hypomagnesemia and hypocalcemia. He was given oral calcium replacement. He was given magnesium 2 g IV. - I reviewed the results with the patient and his son. I recommended admission for cardiac monitoring and further diagnostic workup and treatment. Patient verbalized understanding of concern. He and son provided informed refusal of recommended treatment. He plans to go home and follow-up as an outpatient. He will take oral magnesium supplementation. I reviewed the risks of leaving AGAINST MEDICAL ADVICE with the patient and his son. They verbalized understanding of risks and still wishes to leave. Clinical Impression: - Hypomagnesemia - Hypocalcemia - Dementia - Medication noncompliance Patient education: I spoke with the patient and his son about need to take medications as prescribed. Son to assist with medication administration. This document was written with the assistance of NANCY Noguera. The patient consented to its use. PFSH All Active Problems (Updated 09/02/25 @ 14:51 by Jose Figueroa MD) Hypocalcemia (Acute) Hypomagnesemia (Acute) Cognitive changes (Acute) Hypomagnesemia (Acute) Elevated troponin (Acute) Nausea & vomiting (Acute) Medical History Diabetes HTN (hypertension) Surgical History Hx of CABG History of appendectomy Social History Smoking/Tobacco Use Status: Former Tobacco Use Smoking risk assessment performed?: Yes Alcohol Intake: never Drug use: Never Substance use type: does not use Do you feel safe at home: Yes Do you feel safe in your relationship?: Yes
[2025-09-02 15:09] VITALS: RESP 20
== END 2025-09-02 18:35 | disposition left against medical advice (07) ==
PROVIDERS: Emergency Provider Student in an Organized Health Care Education/Training Program; PCP Nurse Practitioner Family
DX: E83.42 Hypomagnesemia (principal); E83.51 Hypocalcemia
CPT/HCPCS: 99284; 99283; 36415; 80053; 93005; 96365; 83735; 85025; 93010; J3475

== ENCOUNTER 2025-09-10 14:59 | Emergency (ER) | payer OTHER, SELFPAY ==
[2025-09-10] VITALS (21 sets, daily range): BP systolic 110–175; BP diastolic 46–71; PULSE 48–94; RESP 13–18; TEMP 37.1; O2SAT 96–100
--- NOTE | 2025-09-10 15:00 | RT.EKG_ITS ---
APPROVED REPORT Exam: Resting ECG Reason for Exam: chest pain Patient Location: E HR:82 bpm ECG Measurements Heart Rate 82 AXIS MO [id number] P [id number] QRSd 74 QRS 3 QT 379 T 67 QTc 443 Conclusion Atrial fibrillation...V-rate 59-144, irreg A-activity
--- NOTE | 2025-09-10 15:16 | W.ED.GENAD ---
Discharge Plan Disposition Patient Disposition: Home Condition: Stable Discharge Details Clinical Impression: Chest pain, A-fib Primary Care Provider: Zeny Diaz ED Provider: Desean Gloria [place] Meds and New Rx's Prescriptions: New Eliquis 2.5 mg tablet 2.5 mg PO BID Qty: 60 0RF metoprolol succinate 25 mg tablet extended release 24 hr 12.5 mg PO DAILY Qty: 30 0RF Continued atorvastatin 10 mg Tablet 20 mg PO DAILY metoprolol succinate 25 mg Tablet Extended Release 24 Hr 12.5 mg PO DAILY [facility] Comments: [facility] empagliflozin 25 mg Tablet 25 mg PO QAM cyanocobalamin (vitamin B-12) 1,000 mcg Capsule 1,000 mcg PO DAILY aspirin 81 mg Tablet,Delayed Release (Dr/Ec) 81 mg PO DAILY Qty: 0 0RF Patient Comments: not on [facility] capsaicin [Arthritis-Muscle (capsaicin)] 0.025 % cream 1 applic topical QHS Rx Instructions: do not wash area for at least 30 min after application carboxymethylcellulose sodium 0.5 % drops 1 drp ophthalmic (eye) QID melatonin 3 mg capsule 3 mg PO QHS metformin 500 mg Tablet Extended Release 24hr 1,000 mg PO BID calcium carbonate [Calcium 500] 500 mg calcium (1,250 mg) Tablet,Chewable 400 mg PO PRN PRN Patient Comments: not [facility] nitroglycerin 0.4 mg Tablet, Sublingual 0.4 mg sublingual DIRECTED diclofenac sodium 1 % gel 2 g topical QID PRN Rx Instructions: apply to single elbow, wrist or hand; for hand includes palm/fingers/back of hand donepezil [Aricept] 10 mg tablet 10 mg PO QHS multivitamin [Daily Multi-Vitamin] Tablet 1 tab PO DAILY loperamide 2 mg capsule 4 mg PO Q6H PRN No Action lisinopril 5 MG tablet 20 mg PO DAILY AM Patient Comments: not on [facility] amlodipine 5 mg Tablet 2.5 mg PO DAILY Patient Comments: not on [facility] omeprazole 20 mg Tablet,Delayed Release (Dr/Ec) 20 mg PO DAILY meclizine 12.5 mg tablet 12.5 mg PO TID PRN (Reason: dizziness) Qty: 14 0RF Patient Comments: not on [facility] duloxetine [Cymbalta] 30 mg capsule,delayed release(DR/EC) 60 mg PO QHS psyllium Powder 1 tsp PO DAILY Rx Instructions: mix into at least 4 oz water or juice before administering ropinirole 1 mg tablet 1 mg PO QHS sucralfate 100 mg/mL suspension See Rx Instructions PO QID Rx Instructions: Take 1 teaspoon by mouth before meals and at bedtime for bile and/or acid reflux orally four times a day; swish in mouth and spit out; use after food and/or drink Lactobacillus acidophilus Capsule 1 cap PO TID Patient Comments: not on [facility] vitamin B complex Capsule 1 cap PO DAILY ondansetron 4 mg tablet,disintegrating 4 mg PO Q6H PRN (Reason: nausea and vomiting) Qty: 30 0RF Discharge Instructions Additional Instructions: Your CAT scan and blood work did not show any concerning findings at this time. There was no evidence of a heart attack. You are noted to have atrial fibrillation which is a common heart rhythm disorder when he had heart surgeries or heart attacks in the past. Follow-up with your primary care provider within 1 to 2 weeks as they should continue the metoprolol and blood thinner apixaban prescriptions. If you feel more ill or have new symptoms such as high fevers or persistent vomiting return to the emergency department for reevaluation. HPI General Date/Time Provider Initiated Documentation: 09/10/25 15:00. Information obtained by: patient and family. History of Present Illness 80 year old M presents to the emergency department with the chief complaint of chest pain, dyspnea, described as moderate, Quality is described as aching, and is localized to the chest. Patient reports no radiation. Patient started experiencing this day(s) (1) and it has been constant. No relieving factors improve symptom(s), No exacerbating factors reported . Patient notes denies fever/chills and nausea/vomiting. Patient did receive the following treatments prior to arrival, Aspirin Related Data Home Medications ?Medication ?Instructions ?Recorded ?Confirmed lisinopril 5 mg tablet 20 mg PO DAILY AM 10/18/16 09/10/25 amlodipine 5 mg tablet 2.5 mg PO DAILY 02/24/20 09/10/25 atorvastatin 10 mg tablet 20 mg PO DAILY 02/24/20 09/10/25 cyanocobalamin (vitamin B-12) 1,000 mcg PO DAILY 02/24/20 09/10/25 1,000 mcg capsule empagliflozin 25 mg tablet 25 mg PO QA 02/24/20 09/10/25 metoprolol succinate 25 mg 12.5 mg PO DAILY 02/24/20 09/10/25 tablet,extended release 24 hr omeprazole 20 mg tablet,delayed 20 mg PO DAILY 02/24/20 09/10/25 release meclizine 12.5 mg tablet 12.5 mg PO TID PRN dizziness #14 11/23/22 09/10/25 tabs aspirin 81 mg tablet,delayed 81 mg PO DAILY #0 tabs 01/06/23 09/10/25 release Lactobacillus acidophilus 1 cap PO TID 01/18/23 09/10/25 calcium carbonate (Calcium 500) 400 mg PO PRN PRN 01/18/23 09/10/25 metformin 500 mg tablet,extended 1,000 mg PO BID 01/18/23 09/10/25 release 24hr (osmotic) nitroglycerin 0.4 mg sublingual 0.4 mg sublingual DIRECTED 01/18/23 09/10/25 tablet vitamin B complex 1 cap PO DAILY 01/18/23 09/10/25 diclofenac sodium 1 % topical gel 2 g topical QID PRN 02/14/25 09/10/25 donepezil 10 mg tablet (Aricept) 10 mg PO QHS 02/14/25 09/10/25 loperamide 2 mg capsule 4 mg PO Q6H PRN 02/14/25 09/10/25 multivitamin (Daily Multi-Vitamin 1 tab PO DAILY 02/14/25 09/10/25 tablet) ondansetron 4 mg disintegrating 4 mg PO Q6H PRN nausea and 02/14/25 09/10/25 tablet vomiting #30 tabs capsaicin 0.025 % topical cream 1 applic topical QHS 04/07/25 09/10/25 (Arthritis-Muscle (capsaicin)) carboxymethylcellulose sodium 0.5 1 drp ophthalmic (eye) QID 04/07/25 09/10/25 % eye drops duloxetine 30 mg capsule,delayed 60 mg PO QHS 04/07/25 09/10/25 release (Cymbalta) melatonin 3 mg capsule 3 mg PO QHS 04/07/25 09/10/25 psyllium 1 tsp PO DAILY 04/07/25 09/10/25 ropinirole 1 mg tablet 1 mg PO QHS 04/07/25 09/10/25 sucralfate 100 mg/mL oral See Rx Instructions PO QID 04/07/25 09/10/25 suspension apixaban 2.5 mg tablet (Eliquis) 2.5 mg PO BID #60 tabs 09/10/25 metoprolol succinate 25 mg 12.5 mg (1/2 x 25 mg) PO DAILY #30 09/10/25 tablet,extended release 24 hr tabs Previous Rx's ?Medication ?Instructions ?Recorded meclizine 12.5 mg tablet 12.5 mg PO TID PRN dizziness #14 11/23/22 tabs aspirin 81 mg tablet,delayed 81 mg PO DAILY #0 tabs 01/06/23 release ondansetron 4 mg disintegrating 4 mg PO Q6H PRN nausea and 02/14/25 tablet vomiting #30 tabs apixaban 2.5 mg tablet (Eliquis) 2.5 mg PO BID #60 tabs 09/10/25 metoprolol succinate 25 mg 12.5 mg (1/2 x 25 mg) PO DAILY #30 09/10/25 tablet,extended release 24 hr tabs Allergies Allergy/AdvReac Type Severity Reaction Status Date / Time No Known Allergies Allergy Verified 09/10/25 15:06 General Stated Complaint: Chest Pain CHANDRA: 2 Review of Systems All systems reviewed & are unremarkable except as noted in HPI and below Constitutional Constitutional: Denies chills, Denies fever(s) and Denies weakness Cardiovascular Cardiovascular: Reports chest pain and Reports dyspnea Respiratory Respiratory: Denies cough and Reports dyspnea Gastrointestinal Gastrointestinal: Denies abdominal pain, Denies nausea and Denies vomiting Neurologic Neurologic: Denies weakness Exam Const General: no acute distress Orientation: alert [facility] Head: normal to inspection Ears: external ears normal General nose exam: external nose normal Mouth: moist mucous membranes Eyes General: appearance normal, both eyes and all related structures Neck Neck: normal visual inspection Chest Chest: normal inspection of the chest Resp Effort & Inspection: normal respiratory effort and able to speak in complete sentences Auscultation: clear to auscultation bilaterally Cardio Jugular venous pressure: no JVD Rate: regular rate Skin General skin exam: no rashes or lesions noted Neuro General: patient alert and patient oriented x3 Extrem General: normal to inspection Psych Mental Status: mental status grossly normal Course Vital Signs Vital signs: Vital Signs Temperature 37.1 C 09/10/25 15:01 Pulse 62 09/10/25 15:01 Respiratory Rate 16 09/10/25 15:01 Blood Pressure 161/56 H 09/10/25 15:01 Pulse Oximetry 96 09/10/25 15:01 Temperature 37.1 C 09/10/25 15:01 Pulse 62 09/10/25 15:01 Respiratory Rate 16 09/10/25 15:01 Blood Pressure 161/56 H 09/10/25 15:01 Pulse Oximetry 96 09/10/25 15:01 Pain Level 6 09/10/25 15:01 Medical Decision Making 80-year-old male with a history of prior CABG, dementia was currently oriented answer questions appropriately comes in with chief complaints of chest pain and difficulty breathing for a day. Denies any fever, diaphoresis, nausea vomiting. He says the pain is in the center of his chest and is a sharp sensation. He is speaking clearly in no distress. He has clear lung sounds, no JVD, no calf swelling or tenderness. He is noted to be in A-fib which he is never been diagnosed with per patient. Given his history and complaints we will check CBC, CMP and troponins and if his renal function is adequate consider CTA to evaluate for PE. He has no tearing back pain to suggest dissection. Will treat his symptoms with 162 mg of aspirin as he states he already took 162 mg at home today.Will also give him sublingual nitroglycerin to see if it helps with his pain. patient pain free after one nitro, creatinine 1.5 and gfr over 45 so will proceed with cta. Magnesium is 1.4 and is chronically low will order IV repletion. proBNP is also elevated. First troponin 47. CTA shows no PE or pulmonary edema or pleural effusions. Patient is sleeping on reassessment and awakens easily to voice. Delta troponin flat. He is asymptomatic still in declines to be admitted and given reassuring workup I feel this is reasonable. I discussed with him starting an anticoagulant for his A-fib and he is agreeable to this. I am also gillian start him back on metoprolol for his A-fib. He will follow-up with his PCP and return precautions given Differential Diagnosis Differential Diagnosis: acs, pe, dissection Medical Records Medical records reviewed: Yes I reviewed the patient's medical records. Lab Data Lab results reviewed: Yes I reviewed the patient's lab results. ECG Data Attestation: I personally reviewed and interpreted this ECG (s) as follows: Prior ECG tracings: available for review Interpretation: afib, rate of 82 no stemi PFSH All Active Problems (Updated 09/10/25 @ 17:05 by Desean Gloria MD) A-fib (Chronic) Chest pain (Acute) Hypocalcemia (Acute) Hypomagnesemia (Acute) Cognitive changes (Acute) Hypomagnesemia (Acute) Elevated troponin (Acute) Nausea & vomiting (Acute) Medical History Diabetes HTN (hypertension) Surgical History Hx of CABG History of appendectomy Social History Smoking/Tobacco Use Status: Former Tobacco Use Smoking risk assessment performed?: Yes Alcohol Intake: never Drug use: Never Substance use type: does not use Housing: house Do you feel safe at home: Yes Do you feel safe in your relationship?: Yes Additional Social history: lives with POCUS Exam (ED) Limited Cardiac Exam REASON FOR EXAM: Chest pain and Dyspnea VISUALIZED STRUCTURES: Left ventricle and Right ventricle VIEW OBTAINED: Parasternal long-axis PERTINENT FINDINGS/IMPRESSION: No LV dysfunction Exam complete Limited Thoracic Lung Exam REASON FOR EXAM: Chest pain and Shortness ofBreath VISUALIZED STRUCTURES: right anterior and left anterior PERTINENT FINDINGS/IMPRESSION: no B-Lines/left side and no B-lines/left side Exam complete
[2025-09-10 15:17] LABS: BE (Venous) -1 mmol/L (-2-3); HCO3 (Venous) 26 mmol/L (23-28); O2 Sat (Venous) 25 %; TCO2 (Venous) 24 mmol/L (24-29); pCO2 (Venous) 53 mmHg (41-51); pO2 (Venous) 20 mmHg
[2025-09-10 15:18] LABS: Abs Immature Grans 0.06 10^3/uL (0.0-0.06); HCT 43.8 % (40.0-50.0); HGB 14.6 g/dL (13.5-17.5); Immature Grans % 0.5 %; MCH 31.5 pg (27.0-33.0); MCHC 33.3 % (32.0-36.0); MCV 95 fL (80-95); MPV 9.5 fL (8.0-11.0); Platelet Count 354 10^3/uL (130-400); RBC 4.63 10^6/uL (4.36-5.78); RDW 12.2 % (11.8-14.1); RDW-SD 42.1 fL; WBC 12.42 10^3/uL (4.4-10.8)
[2025-09-10] MEDS: Aspirin 81 MG CHEW 162 MG PO (15:20)
[2025-09-10 15:32] LABS: INR 1.0 (0.9-1.1); PTT Activated 29.7 sec (20.6-30.2); Prothrombin Time 10.2 sec (9.1-11.1)
[2025-09-10] MEDS: nitroGLYcerin 0.4 MG TAB SL (15:34)
[2025-09-10 15:44] LABS: ALT 29 U/L (16-63); AST 17 U/L (15-37); Albumin 3.8 g/dL (3.4-5.0); Alkaline Phosphatase 113 U/L (46-116); Anion Gap 11.4 mmol/L (3-11); BUN 23 mg/dL (7-18); Bilirubin, Total 0.3 mg/dL (0.2-1.0); CO2 27.6 mmol/L (21.0-32.0); Calcium 9.5 mg/dL (8.5-10.1); Chloride 100 mmol/L (98-107); Estimated GFR 46.77 (mL/min/1.73m2); Glucose 228 mg/dL (74-106); Magnesium 1.4 mg/dL (1.8-2.4); NT-proBNP 5683 pg/mL (<300); Potassium 4.2 mmol/L (3.5-5.1); Sodium 139 mmol/L (136-145); TSH (W/Ref FT4) 2.85 uIU/mL (0.36-3.74); Total Protein 8.5 g/dL (6.4-8.2); Troponin I 47 ng/L (<or=76)
--- NOTE | 2025-09-10 15:45 | DI.CT_ITS ---
Exam(s) CT CHEST PE CTA EXAM: CT CHEST PE CTA CLINICAL HISTORY: chest pain and dyspnea. TECHNIQUE: Imaging Protocol: CT angiography of the chest was performed using pulmonary embolus protocol. Multi planar reconstructions were performed. CONTRAST MATERIAL: Intravenous: Omnipaque 350 Contrast volume: 100 cc COMPARISON: CT CT CHEST WO from 04/07/2025 FINDINGS: CHEST: PULMONARY ARTERIES: There are no intraluminal filling defects to suggest acute pulmonary emboli. LUNGS: There are no infiltrates nor evidence of pulmonary infarction.. There are no pleural effusions. MEDIASTINUM: There is no hilar nor mediastinal adenopathy. No hiatal hernia. Partially visualized thyroid unremarkable. CARDIAC: There are sternotomy wires. Heart size minimally prominent. No pericardial effusion.Caliber of the thoracic aorta is within normal limits. There is no significant shift of the interventricular septum. PARTIALLY VISUALIZED UPPERMOST ABDOMEN: Cholelithiasis noted. Gallbladder does not appear edematous and there is no pericholecystic fluid. CBD is not dilated. No adrenal masses nor splenomegaly. OSSEOUS: No significant osseous lesions.No fractures.. IMPRESSION: 1. No evidence of acute pulmonary emboli. No evidence of pulmonary infarction.No infiltrates nor pleural effusions. 2. Sternotomy wires. Mild cardiomegaly. No pericardial effusion. 3. Gallstones noted. No obvious acute cholecystitis. Report called by myself to ER physician on 09/10/2025 at 4:52 p.m. RADIATION DOSE DELIVERED: 90.22mGy.cm Total DLP DATA REPOSITORY: All CT scans at this facility are submitted to the National Radiology Data Registry (NRDR) Dose Index Registry (DIR) with the [employer] (ACR). RADIATION OPTIMIZATION: All CT scans at this facility use at least one of these dose optimization techniques: automated exposure control; mA and/or kV adjustment per patient size (includes targeted exams where dose is matched to clinical indication); or iterative reconstruction.
[2025-09-10] MEDS: MAGNESIUM SULFATE 2 GM/50 ML BAG IV_INF (15:55)
[2025-09-10] MEDS: Normal Saline - Diluent 50 ML VIAL IJ (16:16)
[2025-09-10] MEDS: Omnipaque 350 MG/ML 100 ML BTL IJ (16:16)
[2025-09-10] MEDS: Normal Saline Flush 10 ML SYR IVP (16:16)
[2025-09-10 16:45] LABS: Troponin I 43 ng/L (<or=76)
== END 2025-09-10 17:33 | disposition home or self-care (01) ==
PROVIDERS: Emergency Provider Emergency Medicine; PCP Nurse Practitioner Family
DX: R07.9 Chest pain, unspecified (principal); R06.02 Shortness of breath; I48.91 Unspecified atrial fibrillation
CPT/HCPCS: 99285; 99284; 36415; 71275; 76604; 80053; 82805; 93005; 93308; 96365; 83735; 83880; 84443; 84484; 85025; 85610; 85730; 93010; J3475; J3490

== ENCOUNTER 2025-10-30 21:48 | Emergency (ER) | payer OTHER, SELFPAY ==
[2025-10-30] VITALS (13 sets, daily range): BP systolic 155–171; BP diastolic 44–54; PULSE 66–77; RESP 12–25; TEMP 36.5; O2SAT 86–99
--- NOTE | 2025-10-30 21:45 | RT.EKG_ITS ---
APPROVED REPORT Exam: Resting ECG Reason for Exam: chest pain Patient Location: E HR:67 bpm ECG Measurements Heart Rate 67 AXIS NY 214 P -10 QRSd 77 QRS 1 QT 411 T 42 QTc 435 Conclusion Sinus rhythm...normal P axis, V-rate 60- 99 Borderline prolonged NY interval...NY >212, V-rate 50- 90 Probable left atrial enlargement...P >50mS, <-0.10mV V1 no ST segment or T wave abnormalities to suggest occlusive ME
--- NOTE | 2025-10-30 22:00 | DI.CT_ITS ---
Exam(s) CT THORAX ABD/PEL CTA EXAM: CT THORAX ABD/PEL CTA CLINICAL HISTORY: Chest pain concern for dissection. TECHNIQUE: Imaging Protocol: Axial CT angiography was performed with multi- slice acquisition and multi-planar and/or 3D reconstructions. Lung Computer Aided Detection (CAD) was utilized. CONTRAST MATERIAL: Intravenous: Omnipaque 350 contrast volume:100 mL Oral: No COMPARISON: CT CT ABDOMEN PELVIS W from 01/18/[address] CHEST PE CTA from 09/10/2025 FINDINGS: CHEST: Tracheobronchial tree: Patent where visualized. There is no evidence of bronchiectasis. Pulmonary parenchyma: No consolidation or dominant measurable mass. No architectural distortion. Pulmonary Arteries: No evidence of filling defect to suggest pulmonary emboli. Mediastinum and Donna: No dominant adenopathy or fluid collection. The esophagus is unremarkable. Visualized thyroid: Unremarkable. Pleura: No effusion or pneumothorax. Heart: The heart is not dilated. Coronary artery calcifications are present. No pericardial effusion. Aorta: Thoracic aorta non-dilated. There is no evidence of dissection. Atherosclerotic calcification is present. Soft Tissues: Mild gynecomastia is present. Bones: Within normal limits for the patient's age.Sternal wires are in place. ABDOMEN AND PELVIS: Abdomen: Celiac axis/mesenteric arteries: There is moderate narrowing of the origin of the celiac artery. Atherosclerotic calcification is present. There is atherosclerotic calcification in the proximal superior mesenteric artery without significant stenosis. Renal Arteries: No evidence of occlusion or significant stenosis. There is moderate narrowing of the origins of the renal arteries bilaterally without significant stenosis. Aorta: No evidence of occlusion or significant stenosis. No aneurysm or dissection. Atherosclerotic calcification is present. Pelvis: Iliac Arteries: No evidence of occlusion or significant stenosis. Atherosclerotic calcification is present. Common Femoral Arteries: No evidence of occlusion or significant stenosis. Atherosclerotic calcification is present. ABDOMEN: Liver: Normal density. No measurable mass. Portal, superior mesenteric and splenic veins: Unremarkable. Gallbladder and Biliary Tract: Cholelithiasis. There is no biliary ductal dilatation. Pancreas: Normal density, no abnormal calcifications or inflammatory process. Spleen: Normal. Adrenals: No masses seen. Kidneys: Normal size, contour and axis. No radiodense stones or obstructive uropathy. There is a 2.6 x 2.7 cm simple cyst in the right kidney. No follow-up is recommended. Bowel: No obstruction or bowel wall thickening. There is a diverticulum arising from the duodenum. There is no evidence of appendicitis. There is diverticulosis in the colon but no evidence of acute diverticulitis. Peritoneal Cavity: No ascites, collection or mesenteric inflammatory response. No free air. Lymph Nodes: Within normal limits. Bones: Within normal limits for the patient's age. Soft Tissues: There are fat containing bilateral inguinal hernias. PELVIS: Bladder: Symmetric distention, no gross wall thickening. Reproductive Organs: Unremarkable as visualized. Lymph Nodes: Within normal limits. Bones: Within normal limits for the patient's age. IMPRESSION: 1. There is no acute abdominal or pelvic process. 2. There is no evidence of a pulmonary embolism, thoracic aortic dissection or aneurysm. 3. There is no evidence of an abdominal aortic aneurysm or dissection. 4. There is no acute pulmonary process. 5. 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 6. Cholelithiasis without CT evidence to suggest acute cholecystitis. 7. The preliminary [facility] report was reviewed. RADIATION DOSE DELIVERED: 1,250.92mGy.cm Total DLP DATA REPOSITORY: All CT scans at this facility are submitted to the National Radiology Data Registry (NRDR) Dose Index Registry (DIR) with the [employer] (ACR). RADIATION OPTIMIZATION: All CT scans at this facility use at least one of these dose optimization techniques: automated exposure control; mA and/or kV adjustment per patient size (includes targeted exams where dose is matched to clinical indication); or iterative reconstruction.
--- NOTE | 2025-10-30 22:15 | DI.CT_ITS ---
Exam(s) CT HEAD WO EXAM: CT HEAD WO CLINICAL HISTORY: fall on eliquis. TECHNIQUE: Imaging Protocol: Axial computed tomography images with coronal and sagittal reformatted images were created and reviewed COMPARISON: CT CT HEAD - STROKE PROTOCOL from 02/24/[address] HEAD WO from 11/23/[address] HEAD WO from 04/07/2025 FINDINGS: Ventricles and Extra axial spaces: Normal in size and morphology for the patient's age. Hemorrhage: None. Cerebral parenchyma: There is diffuse decreased attenuation of the white matter consistent with chronic microvascular ischemic disease. There is no evidence of an acute territorial infarct or acute mass effect. Midline shift: None. Brainstem/Cerebellum: Normal. Calvarium: Normal. Visualized Paranasal sinuses/Mastoids: Clear. Soft Tissues: Unremarkable. IMPRESSION: 1. No acute intracranial process. 2. The preliminary [facility] report was reviewed. RADIATION DOSE DELIVERED: 885.57mGy.cm Total DLP DATA REPOSITORY: All CT scans at this facility are submitted to the National Radiology Data Registry (NRDR) Dose Index Registry (DIR) with the [employer] (ACR). RADIATION OPTIMIZATION: All CT scans at this facility use at least one of these dose optimization techniques: automated exposure control; mA and/or kV adjustment per patient size (includes targeted exams where dose is matched to clinical indication); or iterative reconstruction.
--- NOTE | 2025-10-30 22:18 | W.ED.GENAD ---
Discharge Plan Disposition Patient Disposition: Home Condition: Good Discharge Details Clinical Impression: Chest pain, Hypomagnesemia, Hyperglycemia, Hypertension Primary Care Provider: Zeny Diaz ED Provider: Serenity Noel Home Meds and New Rx's Prescriptions: No Action lisinopril 5 MG tablet 20 mg PO DAILY AM [facility] Comments: [facility] atorvastatin 10 mg Tablet 20 mg PO DAILY amlodipine 5 mg Tablet 2.5 mg PO DAILY Patient Comments: not [facility] metoprolol succinate 25 mg Tablet Extended Release 24 Hr 12.5 mg PO DAILY Patient Comments: not [facility] omeprazole 20 mg Tablet,Delayed Release (Dr/Ec) 20 mg PO DAILY empagliflozin 25 mg Tablet 25 mg PO QAM cyanocobalamin (vitamin B-12) 1,000 mcg Capsule 1,000 mcg PO DAILY meclizine 12.5 mg tablet 12.5 mg PO TID PRN (Reason: dizziness) Qty: 14 0RF Patient Comments: [facility] aspirin 81 mg Tablet,Delayed Release (Dr/Ec) 81 mg PO DAILY Qty: 0 0RF Patient Comments: not [facility] capsaicin [Arthritis-Muscle (capsaicin)] 0.025 % cream 1 applic topical QHS Rx Instructions: do not wash area for at least 30 min after application carboxymethylcellulose sodium 0.5 % drops 1 drp ophthalmic (eye) QID duloxetine [Cymbalta] 30 mg capsule,delayed release(DR/EC) 60 mg PO QHS melatonin 3 mg capsule 3 mg PO QHS psyllium Powder 1 tsp PO DAILY Rx Instructions: mix into at least 4 oz water or juice before administering ropinirole 1 mg tablet 1 mg PO QHS sucralfate 100 mg/mL suspension See Rx Instructions PO QID Rx Instructions: Take 1 teaspoon by mouth before meals and at bedtime for bile and/or acid reflux orally four times a day; swish in mouth and spit out; use after food and/or drink Lactobacillus acidophilus Capsule 1 cap PO TID Patient Comments: not [facility] metformin 500 mg Tablet Extended Release 24hr 1,000 mg PO BID calcium carbonate [Calcium 500] 500 mg calcium (1,250 mg) Tablet,Chewable 400 mg PO PRN PRN Patient Comments: not [facility] nitroglycerin 0.4 mg Tablet, Sublingual 0.4 mg sublingual DIRECTED vitamin B complex Capsule 1 cap PO DAILY diclofenac sodium 1 % gel 2 g topical QID PRN Rx Instructions: apply to single elbow, wrist or hand; for hand includes palm/fingers/back of hand donepezil [Aricept] 10 mg tablet 10 mg PO QHS multivitamin [Daily Multi-Vitamin] Tablet 1 tab PO DAILY loperamide 2 mg capsule 4 mg PO Q6H PRN ondansetron 4 mg tablet,disintegrating 4 mg PO Q6H PRN (Reason: nausea and vomiting) Qty: 30 0RF Eliquis 2.5 mg tablet 2.5 mg PO BID Qty: 60 0RF metoprolol succinate 25 mg tablet extended release 24 hr 12.5 mg PO DAILY Qty: 30 0RF Discharge Instructions Instructions: Low Magnesium Level (DC), Chest Pain, Adult ED, High Blood Sugar, Adult ED Additional Instructions: Please followup with 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 Continue all of your home medications as prescribed. Call your logging crew supervisor in the morning to schedule an appointment for within the next 48-72 hours to followup on your visit today. Since you did not stay in the hospital, you will need outpatient testing to further evaluate whether your chest pain is due to your heart. Please call your primary care doctor in the morning to schedule an appointment for within the next 72 hours to followup on your visit here. At that visit please discuss your blood sugar which is very high here in the ED- your medications may need to be adjusted. Please check your blood sugar at home regularly. High blood sugar can lead to serious or fatal conditions such as diabetic ketoacidosis or hyperosmolor hyperglycemic state. You should also followup on your blood pressure which is high, your magnesium which is low, and your CT scan which showed narrowing of many of your arteries. Return to the emergency department for new or worsening symptoms including if your chest pain returns, you feel unwell, begin vomiting, feel like you are going to pass out, have trouble breathing, develop headache or confusion, or if you have any other concerns. Stand Alone Forms: Portal Information HPI General Mode of arrival: ambulatory. Date/Time Provider Initiated Documentation: 10/30/25 22:01. Limitations to Documentation: no limitations. Information obtained by: patient and family. HPI Narrative: 80yo M with hx HTN, DM, CABG, presenting for chest pain. At around 2100 felt sharp right sided chest pain radiating to his back, onset while at rest. This worsened, at it's worst 8/10 in severity, and since then has began to decline currently 1-2/10. Nothing seemed to make it better or worse. Not pleuritic. No shortness of breath, presyncope, or syncope. Has never had pain like this before. Of note, earlier in the day his lost her balance when leaning down to give him a kiss while he was laying in his recliner; she fell onto him and the reclier tipped backwards onto the floor. He does not think he struck his head or lost consciousness. No pain at that time. He is otherwise in his usual state of health with no fevers, chilld, rash, nausea, vomiting, abdominal, numbness, tingling, weakness, vision changes, vertigo, or other concerns. Related Data Home Medications ?Medication ?Instructions ?Recorded ?Confirmed lisinopril 5 mg tablet 20 mg PO DAILY AM 10/18/16 10/31/25 amlodipine 5 mg tablet 2.5 mg PO DAILY 02/24/20 10/30/25 atorvastatin 10 mg tablet 20 mg PO DAILY 02/24/20 10/30/25 cyanocobalamin (vitamin B-12) 1,000 mcg PO DAILY 02/24/20 10/31/25 1,000 mcg capsule empagliflozin 25 mg tablet 25 mg PO QAM 02/24/20 10/30/25 metoprolol succinate 25 mg 12.5 mg PO DAILY 02/24/20 10/31/25 tablet,extended release 24 hr omeprazole 20 mg tablet,delayed 20 mg PO DAILY 02/24/20 10/30/25 release meclizine 12.5 mg tablet 12.5 mg PO TID PRN dizziness #14 11/23/22 10/31/25 Held on 10/31/25. tabs Instructions: That one i dont know aspirin 81 mg tablet,delayed 81 mg PO DAILY #0 tabs 01/06/23 10/30/25 release Lactobacillus acidophilus 1 cap PO TID 01/18/23 10/31/25 Held on 10/31/25. Instructions: I got no idea calcium carbonate (Calcium 500) 400 mg PO PRN PRN 01/18/23 10/31/25 metformin 500 mg tablet,extended 1,000 mg PO BID 01/18/23 10/30/25 release 24hr (osmotic) nitroglycerin 0.4 mg sublingual 0.4 mg sublingual DIRECTED 01/18/23 10/30/25 tablet vitamin B complex 1 cap PO DAILY 01/18/23 10/31/25 diclofenac sodium 1 % topical gel 2 g topical QID PRN 02/14/25 10/30/25 donepezil 10 mg tablet (Aricept) 10 mg PO QHS 02/14/25 10/30/25 loperamide 2 mg capsule 4 mg PO Q6H PRN 02/14/25 10/31/25 multivitamin (Daily Multi-Vitamin 1 tab PO DAILY 02/14/25 10/30/25 tablet) ondansetron 4 mg disintegrating 4 mg PO Q6H PRN nausea and 02/14/25 10/31/25 tablet vomiting #30 tabs Held on 10/31/25. Instructions: No Idea capsaicin 0.025 % topical cream 1 applic topical QHS 04/07/25 10/31/25 (Arthritis-Muscle (capsaicin)) Held on 10/31/25. Instructions: dont know about that one carboxymethylcellulose sodium 0.5 1 drp ophthalmic (eye) QID 04/07/25 10/31/25 % eye drops duloxetine 30 mg capsule,delayed 60 mg PO QHS 04/07/25 10/30/25 release (Cymbalta) melatonin 3 mg capsule 3 mg PO QHS 04/07/25 10/30/25 psyllium 1 tsp PO DAILY 04/07/25 10/31/25 Held on 10/31/25. Instructions: I have no idea ropinirole 1 mg tablet 1 mg PO QHS 04/07/25 10/31/25 sucralfate 100 mg/mL oral See Rx Instructions PO QID 04/07/25 10/31/25 suspension Held on 10/31/25. Instructions: got no idea on that one apixaban 2.5 mg tablet (Eliquis) 2.5 mg PO BID #60 tabs 09/10/25 10/30/25 metoprolol succinate 25 mg 12.5 mg (1/2 x 25 mg) PO DAILY #30 09/10/25 10/31/25 tablet,extended release 24 hr tabs Previous Rx's ?Medication ?Instructions ?Recorded meclizine 12.5 mg tablet 12.5 mg PO TID PRN dizziness #14 11/23/22 Held on 10/31/25. tabs Instructions: That one i dont know aspirin 81 mg tablet,delayed 81 mg PO DAILY #0 tabs 01/06/23 release ondansetron 4 mg disintegrating 4 mg PO Q6H PRN nausea and 02/14/25 tablet vomiting #30 tabs Held on 10/31/25. Instructions: No Idea apixaban 2.5 mg tablet (Eliquis) 2.5 mg PO BID #60 tabs 09/10/25 metoprolol succinate 25 mg 12.5 mg (1/2 x 25 mg) PO DAILY #30 09/10/25 tablet,extended release 24 hr tabs Allergies Allergy/AdvReac Type Severity Reaction Status Date / Time No Known Allergies Allergy Verified 10/30/25 22:24 General Stated Complaint: Chest Pain CHANDRA: 3 Review of Systems Narrative: see HPI Exam Narrative Exam Narrative: General: Alert, well appearing, well nourished, in no acute distress. Head: Normocephalic, atraumatic Neck: Trachea midline, ?Neck supple. ENT: ?MMM.? Chest: Chest wall non-tender. Cardiac: ?RRR, no murmurs appreciated Resp: No respiratory distress. CTAB. Abd: ?Soft, non-distended, nontender : ?No suprapubic tenderness. Extremities: ?No deformities.? No peripheral edema. Neuro: ? GCS 15.? PERRL.? EOMI.? Fluent speech, no dysarthria. Motor- 5/5 strength symmetric bilateral upper and lower extremities Sensation- ?Intact to light touch and symmetric multiple dermatomes including upper and lower extremities Coordination- No dysmetria on finger to nose Reflexes- 2/4 achilles & patellar, no clonus Gait/station: ?Normal stance.? No truncal ataxia. Steady gait with equal normal steps CRANIAL NERVES: II: Pupils equal and reactive, III, IV, : EOM intact, no gaze preference or deviation, no nystagmus. V: normal sensation in V1, V2, and V3 segments bilaterally VII: no asymmetry, no nasolabial fold flattening VIII: normal hearing to speech IX, X: normal palatal elevation, no uvular deviation XI: 5/5 head turn and 5/5 shoulder shrug bilaterally XII: midline tongue protrusion Course Vital Signs Vital signs: Vital Signs Temperature 36.5 C 10/30/25 21:51 Pulse 68 10/30/25 21:51 Respiratory Rate 15 10/30/25 21:51 Pulse Oximetry 99 10/30/25 21:51 Temperature 36.5 C 10/30/25 21:51 Pulse 68 10/30/25 21:51 Respiratory Rate 15 10/30/25 21:51 Blood Pressure 171/44 H 10/30/25 21:58 Blood Pressure Mean 86 10/30/25 21:58 Blood Pressure Position Supine 10/30/25 21:51 Pulse Oximetry 99 10/30/25 21:51 Oxygen Delivery Method Room Air 10/30/25 21:51 Oxygen Flow Rate 0 10/30/25 21:51 Medical Decision Making 80yo M with hx HTN, DM, CABG, presenting for atypical chest pain. At around 2100 felt sharp right sided chest pain radiating to his back, onset while at rest. This worsened over the next hour up 8/10 then declined, currently 2/10. No associated symptoms or alleviating/aggravating factors. Hypertensive on arrival ,vital signs otherwise reassuring. EKG on arrival SR, no ST segment or T wave abnormalities to suggest occlusive NV (does have some slight ST elevations V1-V3). Broad differential; given age and risk factors, will give 325 of ASA while awaiting results of workup. Lower suspicion for dissection or trauma; will get CTA to evaluate. As he is on eliquis, out of abundance of caution will get non-con head CT given fall. -Labs reviewed as below, CBC with mild anemia at 12.0 (chronic on [facility] record review), CMP with no actionable abnormalities (Cr at baseline, marked hyeprglycemia in 400's with no elevated gap or acidosis), Mg low at 1.3 (asymptomatic, oral replacement given), lipase not suggestive of pancreatitis, coags normal, BNP not suggestive of heart failure, initial troponin 5 with one hour repeat unchanged. -CT head independently reviewed; no large bleed or mass on my view, radiology read with no acute findings. -CTA independently reviewed; no aortic dissection or saddle pulmonary embolus or pneumothorax or bowel obstruction on my view, radiology read below. On reassessment patient reports chest pain is entirely absent and has been gone since shortly after arrival to the ED. 3 hour troponin unchanged. Repeat EKG again SR, no significant changes from initial. HEART score 6, moderate risk. 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 He would strongly prefer to go home which is not unreasonable given his reassuring workup here. He was advised to followup with logging crew supervisor within 48-72 hours to to return to the ED immediately should his symptoms return. He was also instructed to followup with his PCP regarding his hyperglycemia, hypomagnesium, high blood pressure, and CT finding of abdominal arterial stenoses. He verbalized understanding of these instructions. Discharged home; discharge instructions and return precutions were reviewed with patient and family at bedside who verbalized understanding. All questions were answered and he is in full agreement with the plan. IMPRESSION: 1. No evidence of aortic dissection. No acute vascular abnormalities are identified. 2. 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 3. Moderate-severe 70% post ostial stenosis of the right renal artery. 4. Moderate-severe 70% post ostial stenosis of the left renal artery. 5. Moderate coronary artery calcification and prior median sternotomy. 6. Gallstones without evidence of cholecystitis or biliary obstruction. 7. Question mild bilateral peribronchial thickening, possibly mild bronchitis or bronchial edema. No gross pulmonary infiltrates. 8. There is moderate colonic stool and gas suggesting possible constipation. 9. Additional nonemergent findings detailed above IMPRESSION: 1. No acute intracranial process. No intracranial hemorrhage or mass effect. No gross change from 04/07/2025. 2. Atrophy and microvascular changes consistent with advanced age. 3. Moderate-severe calcific atherosclerosis. Lab Data Lab results reviewed: Yes I reviewed the patient's lab results. Labs: Laboratory Tests Range/Units 10/30/25 10/30/25 10/31/25 22:08 23:15 01:11 WBC (4.4-10.8) 10^3/uL 8.04 RBC (4.36-5.78) 10^6/uL 3.87 L Hgb (13.5-17.5) g/dL 12.0 L Hct (40.0-50.0) % 37.0 L MCV (80-95) fL 96 H MCH (27.0-33.0) pg 31.0 MCHC (32.0-36.0) % 32.4 RDW (11.8-14.1) % 12.3 Plt Count (130-400) 10^3/uL 250 MPV (8.0-11.0) fL 9.8 Immature Gran % % 0.7 Neutrophils % % 66.1 Lymphocytes % % 21.8 Monocytes % % 9.0 Eosinophils % % 2.0 Basophils % % 0.4 Nucleated RBC % (0.0-0.3) % 0.0 Absolute Neutrophils (1.2-6.7) 10^3/uL 5.32 Absolute Lymphocytes (1.2-3.4) 10^3/uL 1.75 Absolute Monocytes (0.1-0.8) 10^3/uL 0.72 Absolute Eosinophils (0.0-0.7) 10^3/uL 0.16 Absolute Basophils (0.0-0.2) 10^3/uL 0.03 PT (9.1-11.1) sec 11.0 INR (0.9-1.1) 1.1 APTT (20.6-30.2) sec 27.4 Sodium (136-145) mmol/L 140 Potassium (3.5-5.1) mmol/L 3.9 Chloride (98-107) mmol/L 102 Carbon Dioxide (20.0-31.0) mmol/L 29.5 Anion Gap (3-11) mmol/L 8.5 BUN (9-23) mg/dL 22 Creatinine (0.73-1.18) mg/dL 1.36 H Est GFR (CKD-EPI 2020) (mL/min/1.73m2) 50.35 Glucose (74-106) mg/dL 448 H Calcium (8.3-10.6) mg/dL 8.9 Magnesium (1.6-2.6) mg/dL 1.3 L Total Bilirubin (0.2-1.2) mg/dL 0.20 AST (<34) U/L 17 ALT (10-49) U/L 17 Alkaline Phosphatase (46-116) U/L 119 H Troponin I (<54) ng/L 5 5 5 NT-Pro-B Natriuret Pep (<300) pg/mL 584 H Total Protein (5.7-8.2) g/dL 7.2 Albumin (3.2-5.0) g/dL 4.1 Lipase (<53) U/L 59 H PFSH All Active Problems (Updated 10/31/25 @ 00:39 by Serenity Noel MD) Hypertension (Chronic) Hyperglycemia (Acute) Hypomagnesemia (Acute) Chest pain (Acute) Cognitive changes (Acute) Hypomagnesemia (Acute) Elevated troponin (Acute) Nausea & vomiting (Acute) Medical History Diabetes HTN (hypertension) Surgical History Hx of CABG History of appendectomy Social History Smoking/Tobacco Use Status: Former Tobacco Use Smoking risk assessment performed?: Yes Alcohol Intake: never Drug use: Never Substance use type: does not use Housing: house Do you feel safe at home: Yes Do you feel safe in your relationship?: Yes Additional Social history: lives with
[2025-10-30] MEDS: Aspirin 81 MG CHEW 324 MG CH (22:20)
[2025-10-30 22:31] LABS: Abs Immature Grans 0.06 10^3/uL (0.0-0.06); HCT 37.0 % (40.0-50.0); HGB 12.0 g/dL (13.5-17.5); Immature Grans % 0.7 %; MCH 31.0 pg (27.0-33.0); MCHC 32.4 % (32.0-36.0); MCV 96 fL (80-95); MPV 9.8 fL (8.0-11.0); Platelet Count 250 10^3/uL (130-400); RBC 3.87 10^6/uL (4.36-5.78); RDW 12.3 % (11.8-14.1); RDW-SD 42.5 fL; WBC 8.04 10^3/uL (4.4-10.8)
[2025-10-30 22:38] LABS: INR 1.1 (0.9-1.1); PTT Activated 27.4 sec (20.6-30.2); Prothrombin Time 11.0 sec (9.1-11.1)
[2025-10-30 22:40] LABS: Lipase 59 U/L (<53); Magnesium 1.3 mg/dL (1.6-2.6); Troponin I 5 ng/L (<54)
[2025-10-30 22:52] LABS: ALT 17 U/L (10-49); AST 17 U/L (<34); Albumin 4.1 g/dL (3.2-5.0); Alkaline Phosphatase 119 U/L (46-116); Anion Gap 8.5 mmol/L (3-11); BUN 22 mg/dL (9-23); Bilirubin, Total 0.20 mg/dL (0.2-1.2); CO2 29.5 mmol/L (20.0-31.0); Calcium 8.9 mg/dL (8.3-10.6); Chloride 102 mmol/L (98-107); Glucose 448 mg/dL (74-106); Potassium 3.9 mmol/L (3.5-5.1); Sodium 140 mmol/L (136-145); Total Protein 7.2 g/dL (5.7-8.2)
[2025-10-30] MEDS: Normal Saline - Diluent 50 ML VIAL IJ (22:56)
[2025-10-30] MEDS: Normal Saline Flush 10 ML SYR IVP (22:56)
[2025-10-30] MEDS: Omnipaque 350 MG/ML 100 ML BTL IJ (22:57)
[2025-10-30] MEDS: Magnesium Oxide 400 MG TAB PO (23:12)
--- NOTE | 2025-10-30 23:16 | DI.[facility]AD_ITS ---
PROCEDURE INFORMATION: Exam: CT Head Without Contrast Exam date and time: 10/30/2025 10:46 PM Age: 80 years old Clinical indication: Injury or trauma; Blunt trauma (contusions or hematomas); Fall, on eliquis TECHNIQUE: Imaging protocol: Computed tomography of the head without contrast. COMPARISON: CT HEAD WO 04/07/2025 4:36 PM FINDINGS: Brain: Moderate generalized cerebral/cerebellar atrophy. Moderate-severe bilateral white matter hypodensities which are nonspecific but most commonly associated with chronic microvascular ischemia in this age group. The IACs are grossly normal. No extra-axial fluid collections. No evidence of acute intracranial hemorrhage. Cerebral/cerebellar san-white matter differentiation is well maintained. No intracranial mass lesions. No midline shift or herniation. Cerebral ventricles: Mild compensatory ventriculomegaly secondary to central atrophy. Pituitary gland and sella: The sella is grossly normal. Paranasal sinuses: Visualized paranasal sinuses are clear. Mastoid air cells: Visualized mastoid air cells are clear. Orbital cavities: No acute intraorbital findings. Bones: No acute osseous findings. Soft tissues: No acute soft tissue findings. Vasculature: Moderate-severe calcific atherosclerosis. No asymmetric vascular hyperdensities suggestive of thrombosis are identified. IMPRESSION: 1. No acute intracranial process. No intracranial hemorrhage or mass effect. No gross change from 04/07/2025. 2. Atrophy and microvascular changes consistent with advanced age. 3. Moderate-severe calcific atherosclerosis. Dictated and Authenticated by: Qasim Fisher MD. Orderin Bert Benton MD
--- NOTE | 2025-10-30 23:30 | DI.VRAD_ITS ---
PROCEDURE INFORMATION: Exam: CTA Chest With Contrast CTA Abdomen and Pelvis With Contrast Exam date and time: 10/30/2025 10:50 PM Age: 80 years old Clinical indication: Other: Chest pain concern for dissection; Prior surgery; Surgery date: 6+ months; Surgery type: PT sts heart surg x >10 yrs ago TECHNIQUE: Imaging protocol: Computed tomographic angiography of the chest with contrast. Exam focused on the arteries. Computed tomographic angiography of the abdomen and pelvis with contrast. Exam focused on the arteries. 3D rendering (Not supervised by radiologist): MIP and/or 3D reconstructed images were created by the technologist. Contrast material: OMNI 350; Contrast volume: 100 ml; Contrast route: INTRAVENOUS (IV); COMPARISON: CT CHEST PE CTA 09/10/2025 4:16 PM FINDINGS: VASCULATURE: Pulmonary arteries: No pulmonary emboli are identified. Small branch assessment mildly limited by respiratory motion in the lung bases. Aorta: The thoracic aorta enhances appropriately without evidence of dissection or aneurysm. Mild aortic ectasia/tortuosity and calcific atherosclerosis. No mediastinal hematoma. Abdominal aorta demonstrates moderate-severe mixed calcific plaque with mild ectasia but no filipe aneurysm and no evidence of dissection or significant stenosis. 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 SMA demonstrates mild ostial calcific plaque without significant stenosis. Renal arteries: Right renal artery demonstrates moderate-severe 70% post ostial stenosis. Left renal artery demonstrates moderate-severe 70% post ostial stenosis. Right iliac arteries: Right iliac arteries demonstrate moderate calcific plaque without aneurysm, dissection, or stenosis. Left iliac arteries: Left iliac arteries demonstrate moderate calcific atherosclerosis without aneurysm, dissection, or stenosis. Thyroid: The visualized thyroid gland demonstrates no gross abnormality. CHEST: Lungs: Question slight bronchial wall thickening bilaterally, possibly a mild element of bronchitis or bronchial edema. No bronchiectasis or bronchial occlusions. No gross pulmonary infiltrates or edema pattern. Minimal pleuroparenchymal scarring in the pulmonary apices bilaterally. No pulmonary mass lesions are identified. Pleural spaces: No pleural effusion. No pneumothorax. Heart: Heart size normal. No pericardial effusion. Coronary arteries: Moderate coronary artery calcification. Esophagus: The esophagus is largely contracted but demonstrates no gross abnormality. ABDOMEN AND PELVIS: Liver: Normal contour. No mass lesions. No intrahepatic biliary ductal dilatation. Gallbladder and biliary ducts: Gallbladder is largely contracted with a few small calcified gallstones in the lumen. No changes of cholecystitis. Nondilated bile ducts. Small periampullary duodenal diverticuli noted. Pancreas: Mild pancreatic atrophy without acute abnormality. No pancreatic ductal dilatation. Spleen: Normal. No splenomegaly. Adrenal glands: Normal. No adrenal mass. Kidneys and ureters: No acute abnormalities. No hydronephrosis or hydroureter. No urinary tract stones are identified. There are few small renal cortical cysts which do not require further evaluation. Stomach and bowel: The stomach is unremarkable. The small bowel is nondilated with no gross abnormality. There is moderate colonic stool and gas suggesting possible constipation. Moderate-severe distal colonic diverticulosis without evidence of diverticulitis. Appendix: The appendix is not identified. No secondary signs of appendicitis. Intraperitoneal space: No free fluid or air. Urinary bladder: Unremarkable as visualized. Reproductive: Unremarkable as visualized. Lymph nodes: No supraclavicular or axillary adenopathy. No mediastinal or hilar adenopathy. No intra-abdominal/intrapelvic adenopathy. Bones/joints: Prior median sternotomy. No acute osseous abnormalities. Mild thoracolumbar spondylosis. Soft tissues: No acute soft tissue abnormalities. Small bilateral fatty inguinal hernias with no asociated bowel herniation or strangulation. IMPRESSION: 1. No evidence of aortic dissection. No acute vascular abnormalities are identified. 2. 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 3. Moderate-severe 70% post ostial stenosis of the right renal artery. 4. Moderate-severe 70% post ostial stenosis of the left renal artery. 5. Moderate coronary artery calcification and prior median sternotomy. 6. Gallstones without evidence of cholecystitis or biliary obstruction. 7. Question mild bilateral peribronchial thickening, possibly mild bronchitis or bronchial edema. No gross pulmonary infiltrates. 8. There is moderate colonic stool and gas suggesting possible constipation. 9. Additional nonemergent findings detailed above. Dictated and Authenticated by: Qasim Fisher MD. Orderin Bert Benton MD
[2025-10-30 23:37] LABS: Troponin I 5 ng/L (<54)
[2025-10-31] VITALS (10 sets, daily range): BP systolic 132–162; BP diastolic 44–51; PULSE 63–75; RESP 17–32; TEMP 37; O2SAT 92–98
--- NOTE | 2025-10-31 00:30 | RT.EKG_ITS ---
APPROVED REPORT Exam: Resting ECG Reason for Exam: chest pain Patient Location: E HR:67 bpm ECG Measurements Heart Rate 67 AXIS AZ 213 P 29 QRSd 78 QRS 1 QT 413 T 41 QTc 435 Conclusion Sinus rhythm...normal P axis, V-rate 60- 99 Borderline prolonged AZ interval...AZ >212, V-rate 50- 90 Probable left atrial enlargement...P >50mS, <-0.10mV V1 no ST segment or T wave abnormalities to suggest occlusive MA
[2025-10-31 01:32] LABS: Troponin I 5 ng/L (<54)
== END 2025-10-31 01:55 | disposition home or self-care (01) ==
PROVIDERS: Emergency Provider Student in an Organized Health Care Education/Training Program; PCP Nurse Practitioner Family
DX: R07.9 Chest pain, unspecified (principal); E83.42 Hypomagnesemia; R73.9 Hyperglycemia, unspecified; I10 Essential (primary) hypertension
CPT/HCPCS: 36415; 71275; 80053; 83690; 93005; 99285; 70450; 74174; 83735; 83880; 84484; 85025; 85610; 85730; 93010; 99284; J3490

== ENCOUNTER 2025-11-20 21:00 | Emergency (ER) | payer OTHER, SELFPAY ==
[2025-11-20] VITALS (18 sets, daily range): BP systolic 137–181; BP diastolic 45–97; PULSE 61–75; RESP 14–22; TEMP 36.5; O2SAT 98
--- NOTE | 2025-11-20 21:00 | RT.EKG_ITS ---
APPROVED REPORT Exam: Resting ECG Reason for Exam: pre-syncope Patient Location: E HR:64 bpm ECG Measurements Heart Rate 64 AXIS VT 215 P -52 QRSd 75 QRS 1 QT 424 T 49 QTc 439 Conclusion Sinus or ectopic atrial rhythm...P axis (-45,135) Borderline prolonged VT interval...VT >212, V-rate 50- 90 Probable left atrial enlargement...P >50mS, <-0.10mV V1 No STEMI
[2025-11-20 21:53] LABS: BE (Venous) 3 mmol/L (-2-3); HCO3 (Venous) 29 mmol/L (23-28); O2 Sat (Venous) 48 %; TCO2 (Venous) 27 mmol/L (24-29); pCO2 (Venous) 55 mmHg (41-51); pO2 (Venous) 29 mmHg
[2025-11-20 21:55] LABS: Abs Immature Grans 0.03 10^3/uL (0.0-0.06); HCT 38.3 % (40.0-50.0); HGB 12.7 g/dL (13.5-17.5); Immature Grans % 0.3 %; MCH 30.9 pg (27.0-33.0); MCHC 33.2 % (32.0-36.0); MCV 93 fL (80-95); MPV 9.8 fL (8.0-11.0); Platelet Count 271 10^3/uL (130-400); RBC 4.11 10^6/uL (4.36-5.78); RDW 12.0 % (11.8-14.1); RDW-SD 41.6 fL; WBC 8.90 10^3/uL (4.4-10.8)
[2025-11-20 22:10] LABS: Lipase 37 U/L (<53); Magnesium 1.4 mg/dL (1.6-2.6)
[2025-11-20 22:11] LABS: Troponin I 7 ng/L (<54)
[2025-11-20 22:12] LABS: ALT 19 U/L (10-49); AST 21 U/L (<34); Albumin 4.2 g/dL (3.2-5.0); Alkaline Phosphatase 80 U/L (46-116); Anion Gap 9 mmol/L (3-11); BUN 26 mg/dL (9-23); Bilirubin, Total 0.3 mg/dL (0.2-1.2); CO2 29.0 mmol/L (20.0-31.0); Calcium 8.7 mg/dL (8.3-10.6); Chloride 104 mmol/L (98-107); Glucose 156 mg/dL (74-106); Potassium 4.4 mmol/L (3.5-5.1); Sodium 142 mmol/L (136-145); Total Protein 7.4 g/dL (5.7-8.2)
[2025-11-20] MEDS: Normal Saline Flush 10 ML SYR IVP (22:50)
[2025-11-20] MEDS: Omnipaque 350 MG/ML 100 ML BTL IJ (22:50)
[2025-11-20] MEDS: Normal Saline - Diluent 50 ML VIAL IJ (22:51)
--- NOTE | 2025-11-20 22:56 | DI.CT_ITS ---
Exam(s) CT BRAIN NECK CTA EXAM: CT BRAIN NECK CTA CLINICAL HISTORY: dizziness. TECHNIQUE: Imaging Protocol: Axial CT angiography was performed with multi- slice acquisition and multi-planar and/or 3D reconstructions. CONTRAST MATERIAL: Intravenous: Omnipaque 350 contrast volume:70 mL COMPARISON: CT HEAD WITHOUT STROKE PROTOCOL from 05/06/[address] HEAD - STROKE PROTOCOL from 02/24/[address] HEAD WO from 11/23/[address] HEAD WO from 04/07/[address] HEAD WO from 10/30/2025 FINDINGS: CT Head W/O and W: Ventricles and Extra axial spaces: Normal in size and morphology for the patient's age. Hemorrhage: None. Cerebral parenchyma: There are areas of decreased attenuation in the white matter consistent with chronic microvascular ischemic disease. There is no evidence of an acute territorial infarct or acute mass effect. Midline shift: None. Brainstem/Cerebellum: Normal. Calvarium: Normal. Visualized Paranasal sinuses/Mastoids: Clear. Soft Tissues: Unremarkable. Enhancement: Unremarkable. CTA Neck W: Common Carotid: Right: No dissection, occlusion or significant stenosis. There is mild calcification in the carotid bulb. Left: No dissection, occlusion or significant stenosis. There is mild calcification in the common carotid artery. External Carotid: Right: No occlusion or significant stenosis. There is calcification at the origin of the external carotid artery. Left: No occlusion or significant stenosis. Internal Carotid: Right: No dissection, occlusion or significant stenosis. Atherosclerotic calcification is seen in the right internal carotid artery. Left: No dissection, occlusion or significant stenosis. There is atherosclerotic calcifications seen in the left internal carotid artery. Vertebral Artery: Right: There is no occlusion. There is marked stenosis of the origin of the right vertebral artery. Left: There is marked stenosis at the origin of the left vertebral artery without atheromatous plaque present. No occlusion is seen. Lung Apices: Normal. Bones: Within normal limits for the patient's age. Soft Tissues: Normal. Thyroid gland: Unremarkable. CTA Brain W: Internal Carotid Arteries: There is atherosclerotic plaque seen in the cavernous portions of the internal carotid arteries bilaterally with less than 70 percent stenosis. There is no aneurysm or occlusion. Anterior Cerebral Arteries: Right: No aneurysm, occlusion or significant stenosis. Left: No aneurysm, occlusion or significant stenosis. Middle Cerebral Arteries: Right: No aneurysm, occlusion or significant stenosis. Left: No aneurysm, occlusion or significant stenosis. Posterior Cerebral Arteries: Right: No aneurysm, occlusion or significant stenosis. Left: No aneurysm, occlusion or significant stenosis. Vertebral Arteries: Right: Atherosclerotic plaque is seen in the distal right vertebral artery with moderate stenosis. No occlusion is present. Left: No aneurysm, occlusion or significant stenosis. Basilar Artery: No aneurysm, occlusion or significant stenosis. IMPRESSION: 1. There is moderate stenosis secondary to atheromatous plaque in the distal right vertebral artery. 2. No acute intracranial process. 3. There is severe stenosis seen at the origins of both the right and left vertebral artery secondary to atheromatous plaque. 4. The preliminary [facility] report was reviewed. RADIATION DOSE DELIVERED: 2,037.46mGy.cm Total DLP DATA REPOSITORY: All CT scans at this facility are submitted to the National Radiology Data Registry (NRDR) Dose Index Registry (DIR) with the [employer] ([employer]). RADIATION OPTIMIZATION: All CT scans at this facility use at least one of these dose optimization techniques: automated exposure control; mA and/or kV adjustment per patient size (includes targeted exams where dose is matched to clinical indication); or iterative reconstruction.
--- NOTE | 2025-11-20 22:59 | DI.RAD_ITS ---
Exam(s) XR CHEST 2V PA LATERAL EXAM: XR CHEST 2V PA LATERAL CLINICAL HISTORY: Pre-syncope TECHNIQUE: 2D digital imaging was performed of the chest. Two images were obtained. PA and lateral views were obtained. COMPARISON: CR CHEST 2 VIEWS PA,LAT from 10/18/2016 CR,XR XR CHEST 2V PA LATERAL from 11/23/2022 CR,XR XR PORTABLE CHEST AP from 01/05/2023 CR XR CHEST 2V PA LATERAL from 04/07/2025 FINDINGS: MEDIASTINUM: Normal. HEART: Normal. PULMONARY VASCULATURE: Normal. LUNGS: Clear. PLEURAL SPACE: No pleural effusion or pneumothorax. BONE:Within normal limits for the patient's age. There has been a prior median sternotomy. OTHER FINDINGS:Normal. IMPRESSION: 1. No acute pulmonary findings. 2. The preliminary [facility] report was reviewed. DATA REPOSITORY: RADIATION DOSE DELIVERED:
[2025-11-20] MEDS: MAGNESIUM SULFATE 2 GM/50 ML BAG IV_INF (23:08)
[2025-11-20 23:28] LABS: Troponin I 6 ng/L (<54)
--- NOTE | 2025-11-20 23:31 | DI.VRAD_ITS ---
PROCEDURE INFORMATION: Exam: XR Chest Exam date and time: 11/20/2025 10:55 PM Age: 80 years old Clinical indication: Other: Pre-syncope TECHNIQUE: Imaging protocol: Radiologic exam of the chest. Views: 2 views. COMPARISON: CT THORAX ABD/PEL CTA 10/30/2025 10:50 PM FINDINGS: Lungs: No pulmonary consolidation is seen. Pleural spaces: No pleural effusion or pneumothorax is demonstrated. Heart/Mediastinum: The heart appears normal in size. There has been prior median sternotomy. Bones/joints: Visualized bony structures appear grossly intact, as seen. IMPRESSION: No active disease is seen in the chest. Dictated and Authenticated by: Philip Hdz MD. Orderin Ivonne Bonilla MD
--- NOTE | 2025-11-20 23:49 | W.ED.GENAD ---
Discharge Plan Disposition Patient Disposition: Home Discharge Details Clinical Impression: Episodic lightheadedness, Hypomagnesemia Primary Care Provider: Zeny Diaz ED Provider: Chad Coronado Home Meds and New Rx's Prescriptions: No Action lisinopril 5 MG tablet 20 mg PO DAILY AM [facility]: [facility] atorvastatin 10 mg Tablet 20 mg PO DAILY amlodipine 5 mg Tablet 2.5 mg PO DAILY Patient Comments: [facility] omeprazole 20 mg Tablet,Delayed Release (Dr/Ec) 20 mg PO .COMPLEX Rx Instructions: 20 mg orally BID before meals; Take 30 minutes before meals twice a day empagliflozin 25 mg Tablet 25 mg PO QAM cyanocobalamin (vitamin B-12) 1,000 mcg Capsule 1,000 mcg PO DAILY meclizine 12.5 mg tablet 12.5 mg PO TID PRN (Reason: dizziness) Qty: 14 0RF Patient Comments: [facility] capsaicin [Arthritis-Muscle (capsaicin)] 0.025 % cream 1 applic topical QHS Rx Instructions: do not wash area for at least 30 min after application carboxymethylcellulose sodium 0.5 % drops 1 drp ophthalmic (eye) QID duloxetine [Cymbalta] 30 mg capsule,delayed release(DR/EC) 60 mg PO QHS melatonin 3 mg capsule 3 mg PO QHS psyllium Powder 1 tsp PO DAILY Rx Instructions: mix into at least 4 oz water or juice before administering ropinirole 1 mg tablet 1 mg PO QHS Lactobacillus acidophilus Capsule 1 cap PO TID Patient Comments: [facility] metformin 500 mg Tablet Extended Release 24hr 1,000 mg PO BID calcium carbonate [Calcium 500] 500 mg calcium (1,250 mg) Tablet,Chewable 400 mg PO PRN PRN Patient Comments: not [facility] nitroglycerin 0.4 mg Tablet, Sublingual 0.4 mg sublingual DIRECTED vitamin B complex Capsule 1 cap PO DAILY diclofenac sodium 1 % gel 2 g topical QID PRN Rx Instructions: apply to single elbow, wrist or hand; for hand includes palm/fingers/back of hand donepezil [Aricept] 10 mg tablet 10 mg PO QHS multivitamin [Daily Multi-Vitamin] Tablet 1 tab PO DAILY loperamide 2 mg capsule 4 mg PO Q6H PRN Eliquis 2.5 mg tablet 2.5 mg PO BID Qty: 60 0RF metoprolol succinate 25 mg tablet extended release 24 hr 12.5 mg PO DAILY Qty: 30 0RF Discharge Instructions Instructions: Dizziness, Adult ED Additional Instructions: It is not clear what was causing your dizziness however your magnesium levels were low, and months those were repleted you felt much better and you are no longer dizzy while around. As such I believe you are safe to go home but I would recommend following up with your doctor if you are having recurrent symptoms. Please follow-up with your primary care provider regarding your visit to the emergency department today. Be sure to discuss results of all test performed here today to include radiology, and laboratory testing as well as results for any pending cultures. Should your symptoms worsen, or if you develop new concerning symptoms, please return immediately emergency department for further evaluation. Stand Alone Forms: Portal Information Discharge Data Discharge Date/Time-TO BE ENTERED AT DEPARTURE: 11/21/25 00:45 HPI General Date/Time Provider Initiated Documentation: 11/20/25 21:03. HPI Narrative: MDM/Narrative: 80-year-old male past med history of hypertension, presents for evaluation of lightheadedness. Vital signs notable for mild hypertension, physical exam is otherwise unremarkable. Cause of patient symptoms are unclear however given advanced age and risk factors will consider ACS, CVA, electrolyte abnormality or infection. Will obtain screening labs and imaging as such. ED course: EKG shows no acute ischemia or arrhythmias, troponins negative, CTA of the brain and neck showed no acute findings. Lab values are unremarkable other than patient's chronic anemia and low magnesium. Patient was repleted with magnesium, and on reassessment he notes resolution of his symptoms, he is ambulatory here in the emergency department without any symptoms at all, he is stable for discharge to follow-up with his primary care. Disposition: Home HPI: 80-year-old male with past medical history of hypertension, presents for lightheadedness. History is unclear as patient provides contradicting answers for most questions that he is asked, he states that both this lightheadedness began earlier today but has also been going on for many months, he notes that he has no symptoms and then last asked several minutes later states that he is currently dizzy. While he does seem consistent about is that symptoms are typically only occurring while he is walking about. He denies any associated chest pains, headache, numbness, weakness, change in vision or any other new or concerning symptoms. ROS: Negative besides as mentioned above Exam: Gen: A&O NAD HEENT: NCAT, EOMI, not icteric. External ears normal. No rhinorrhea. Moist mucous membranes. Neck: Supple, full range of motion, no observable masses, No meningeal sign. Lungs: No Respiratory distress. CV: RRR, no edema. Abdomen: Soft, nondistended, No rebound tenderness. MSK: No joint swelling, no redness. Skin: No rashes, petechiae, lesions. Normal color per patient. Neuro: Normal Gait, Grossly intact. Psych: Appropriate for situation. Rhythm: NSR Rate: 64 [place]: Leftward axis Intervals: Normal intervals Other findings: No acute ST segment or T wave changes to suggest acute ischemia. Labs: Laboratory Tests Range/Units 11/20/25 11/20/25 11/20/25 21:35 23:00 23:16 WBC (4.4-10.8) 10^3/uL 8.90 RBC (4.36-5.78) 10^6/uL 4.11 L Hgb (13.5-17.5) g/dL 12.7 L Hct (40.0-50.0) % 38.3 L MCV (80-95) fL 93 MCH (27.0-33.0) pg 30.9 MCHC (32.0-36.0) % 33.2 RDW (11.8-14.1) % 12.0 Plt Count (130-400) 10^3/uL 271 MPV (8.0-11.0) fL 9.8 Immature Gran % % 0.3 Neutrophils % % 66.3 Lymphocytes % % 23.7 Monocytes % % 7.0 Eosinophils % % 2.6 Basophils % % 0.1 Nucleated RBC % (0.0-0.3) % 0.0 Absolute Neutrophils (1.2-6.7) 10^3/uL 5.90 Absolute Lymphocytes (1.2-3.4) 10^3/uL 2.11 Absolute Monocytes (0.1-0.8) 10^3/uL 0.62 Absolute Eosinophils (0.0-0.7) 10^3/uL 0.23 Absolute Basophils (0.0-0.2) 10^3/uL 0.01 VBG pH (7.31-7.41) 7.33 VBG pCO2 (41-51) mmHg 55 H VBG pO2 mmHg 29 VBG HCO3 (23-28) mmol/L 29 H VBG Total CO2 (24-29) mmol/L 27 VBG O2 Saturation % 48 VBG Base Excess (-2-3) mmol/L 3 Sodium (136-145) mmol/L 142 Potassium (3.5-5.1) mmol/L 4.4 Chloride (98-107) mmol/L 104 Carbon Dioxide (20.0-31.0) mmol/L 29.0 Anion Gap (3-11) mmol/L 9 BUN (9-23) mg/dL 26 H Creatinine (0.73-1.18) mg/dL 1.46 H Est GFR (CKD-EPI 2020) (mL/min/1.73m2) 46.38 Glucose (74-106) mg/dL 156 H Calcium (8.3-10.6) mg/dL 8.7 Magnesium (1.6-2.6) mg/dL 1.4 L Total Bilirubin (0.2-1.2) mg/dL 0.3 AST (<34) U/L 21 ALT (10-49) U/L 19 Alkaline Phosphatase (46-116) U/L 80 Troponin I (<54) ng/L 7 6 Cancelled NT-Pro-B Natriuret Pep (<300) pg/mL 532 H Total Protein (5.7-8.2) g/dL 7.4 Albumin (3.2-5.0) g/dL 4.2 Lipase (<53) U/L 37 Radiology: PROCEDURE INFORMATION: Exam: CTA Head Without And With Contrast, Arteriography Exam date and time: 11/20/2025 10:44 PM Age: 80 years old Clinical indication: Dizziness and giddiness TECHNIQUE: Imaging protocol: Computed tomographic angiography of the head without and with contrast. Exam focused on the arteries. 3D rendering (Not supervised by radiologist): MIP and/or 3D reconstructed images were created by the technologist. Contrast material: OMNIPAQUE 350; Contrast volume: 70 ml; Contrast route: INTRAVENOUS (IV); COMPARISON: CT HEAD WO 10/30/2025 10:46 PM FINDINGS: ANTERIOR CIRCULATION: Right internal carotid artery: Moderate atheromatous calcification is present within the cavernous portions of the right internal carotid arteries. Less than 50% luminal stenosis. Right middle cerebral artery: No occlusion or significant stenosis. No aneurysm. Right anterior cerebral artery: No occlusion or significant stenosis. No aneurysm. Left internal carotid artery: Moderate atheromatous calcification is present within the cavernous portions of the left internal carotid arteries. Less than 50% luminal stenosis. Left middle cerebral artery: No occlusion or significant stenosis. No aneurysm. Left anterior cerebral artery: No occlusion or significant stenosis. No aneurysm. POSTERIOR CIRCULATION: Right vertebral artery: No occlusion or significant stenosis. No aneurysm. JAMI ROBLERO Preliminary Radiology Report Page 2 of 3 Left vertebral artery: No occlusion or significant stenosis. No aneurysm. Basilar artery: No occlusion or significant stenosis. No aneurysm. Right posterior cerebral artery: No occlusion or significant stenosis. No aneurysm. Left posterior cerebral artery: No occlusion or significant stenosis. No aneurysm. HEAD: Brain: No acute intracranial hemorrhage or mass lesions. No midline shift. Normal san-white differentiation. There are extensive scattered deep and periventricular white matter changes likely associated with chronic microvascular ischemia. Cerebral ventricles: Normal. No ventriculomegaly. Bones: Unremarkable. No acute fracture. Paranasal sinuses: Visualized sinuses are normal. No fluid levels. Mastoid air cells: Visualized mastoids are normal. No mastoid effusion. Soft tissues: Unremarkable. IMPRESSION: 1. No hemodynamically significant stenosis, occlusion, or aneurysm. 2. No acute intracranial findings. 3. Findings likely associated with chronic microvascular ischemia. PROCEDURE INFORMATION: Exam: CTA Neck Without And With Contrast Exam date and time: 11/20/2025 10:44 PM Age: 80 years old Clinical indication: Dizziness and giddiness TECHNIQUE: Imaging protocol: Computed tomographic angiography of the neck without and with contrast. Exam focused on the cervical segments of the vasculature. 3D rendering (Not supervised by radiologist): MIP and/or 3D reconstructed images were created by the technologist. Contrast material: OMNIPAQUE 350; Contrast volume: 70 ml; Contrast route: INTRAVENOUS (IV); COMPARISON: CT THORAX ABD/PEL CTA 10/30/2025 10:50 PM FINDINGS: Right common carotid artery: No stenosis. No dissection or occlusion. Right internal carotid artery: Mild atheromatous calcifications are present at the right carotid bulb. Right external carotid artery: No occlusion or stenosis of the origin. Left common carotid artery: No stenosis. No dissection or occlusion. Left internal carotid artery: Mild atheromatous calcifications are present at the left carotid bulb. JAMI ROBLERO Preliminary Radiology Report PLODDER OPERATOR (QA) DISCREPANCY? If there is a discrepancy between the preliminary and final interpretation, please notify [employer] via [email or web address]. If you do not have access to our QA portal, call our QA team at [phone] CONFIDENTIALITY STATEMENT This report is intended only for the use of the referring physician, and only in accordance with law, If you received this in error, call [phone] Page 3 of 3 Left external carotid artery: No occlusion or stenosis of the origin. Right vertebral artery: There is a high-grade stenosis at the origin of the right vertebral artery. The more superior portions of the right cervical vertebral artery are widely patent. Left vertebral artery: There is a high-grade stenosis at the origin of the left vertebral artery. The more superior portions of the left vertebral artery are widely patent. Aorta: Atheromatous calcifications are present within the visualized thoracic aorta. Soft tissues: Normal. No significant soft tissue swelling. Bones/joints: No acute fracture. IMPRESSION: 1. 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 2. No other hemodynamically significant stenosis, occlusion, or aneurysm. REFERENCES: NASCET CRITERIA. The degree of stenosis in the cervical segment of the internal carotid artery is based on NASCET criteria. Normal is no stenosis. Mild is less than 50% stenosis. Moderate is 50- 69% stenosis. Severe is 70% to 99% stenosis. Total occlusion is no detectable patent lumen. Thank you for allowing us to participate in the care of your patient. Dictated and Authenticated by: Mignon Longoria MD Related Data Home Medications ?Medication ?Instructions ?Recorded ?Confirmed lisinopril 5 mg tablet 20 mg PO DAILY AM 10/18/16 11/20/25 amlodipine 5 mg tablet 2.5 mg PO DAILY 02/24/20 11/20/25 atorvastatin 10 mg tablet 20 mg PO DAILY 02/24/20 11/20/25 cyanocobalamin (vitamin B-12) 1,000 mcg PO DAILY 02/24/20 11/20/25 1,000 mcg capsule empagliflozin 25 mg tablet 25 mg PO QAM 02/24/20 11/20/25 omeprazole 20 mg tablet,delayed 20 mg PO .COMPLEX 02/24/20 11/20/25 release meclizine 12.5 mg tablet 12.5 mg PO TID PRN dizziness #14 11/23/22 11/20/25 Held on 10/31/25. tabs Instructions: That one i dont know Lactobacillus acidophilus 1 cap PO TID 01/18/23 11/20/25 Held on 10/31/25. Instructions: I got no idea calcium carbonate (Calcium 500) 400 mg PO PRN PRN 01/18/23 11/20/25 metformin 500 mg tablet,extended 1,000 mg PO BID 01/18/23 11/20/25 release 24hr (osmotic) nitroglycerin 0.4 mg sublingual 0.4 mg sublingual DIRECTED 01/18/23 11/20/25 tablet vitamin B complex 1 cap PO DAILY 01/18/23 11/20/25 diclofenac sodium 1 % topical gel 2 g topical QID PRN 02/14/25 11/20/25 donepezil 10 mg tablet (Aricept) 10 mg PO QHS 02/14/25 11/20/25 loperamide 2 mg capsule 4 mg PO Q6H PRN 02/14/25 11/20/25 multivitamin (Daily Multi-Vitamin 1 tab PO DAILY 02/14/25 11/20/25 tablet) capsaicin 0.025 % topical cream 1 applic topical QHS 04/07/25 11/20/25 (Arthritis-Muscle (capsaicin)) carboxymethylcellulose sodium 0.5 1 drp ophthalmic (eye) QID 04/07/25 11/20/25 % eye drops duloxetine 30 mg capsule,delayed 60 mg PO QHS 04/07/25 11/20/25 release (Cymbalta) melatonin 3 mg capsule 3 mg PO QHS 04/07/25 11/20/25 psyllium 1 tsp PO DAILY 04/07/25 11/20/25 Held on 10/31/25. Instructions: I have no idea ropinirole 1 mg tablet 1 mg PO QHS 04/07/25 11/20/25 apixaban 2.5 mg tablet (Eliquis) 2.5 mg PO BID #60 tabs 09/10/25 11/20/25 metoprolol succinate 25 mg 12.5 mg (1/2 x 25 mg) PO DAILY #30 09/10/25 11/20/25 tablet,extended release 24 hr tabs Previous Rx's ?Medication ?Instructions ?Recorded meclizine 12.5 mg tablet 12.5 mg PO TID PRN dizziness #14 11/23/22 Held on 10/31/25. tabs Instructions: That one i dont know apixaban 2.5 mg tablet (Eliquis) 2.5 mg PO BID #60 tabs 09/10/25 metoprolol succinate 25 mg 12.5 mg (1/2 x 25 mg) PO DAILY #30 09/10/25 tablet,extended release 24 hr tabs Allergies Allergy/AdvReac Type Severity Reaction Status Date / Time No Known Allergies Allergy Verified 11/20/25 21:11 General Stated Complaint: Dizzy/Sync CHANDRA: 3 Course Vital Signs Vital signs: Vital Signs Temperature 36.5 C 11/20/25 21:07 Pulse 62 11/20/25 21:07 Respiratory Rate 17 11/20/25 21:07 Blood Pressure 181/70 H 11/20/25 21:07 Pulse Oximetry 98 11/20/25 21:07 Temperature 36.5 C 11/20/25 21:07 Temperature Source Oral 11/20/25 21:07 Pulse 68 11/20/25 22:04 Respiratory Rate 16 11/20/25 21:55 Respiratory Effort Normal, Non-Labored 11/20/25 21:55 Respiratory Depth Shallow 11/20/25 21:55 Respiratory Pattern Normal 11/20/25 21:55 Blood Pressure 137/46 L 11/20/25 22:04 Blood Pressure Position Sitting 11/20/25 21:07 Pulse Oximetry 98 11/20/25 21:07 Oxygen Delivery Method Room Air 11/20/25 21:07 Oxygen Flow Rate 0 11/20/25 21:07 Pain Level 0 11/20/25 22:05 Lab/Test Results Lab/Test Results: Laboratory Tests Range/Units 11/20/25 11/20/25 11/20/25 21:35 23:00 23:16 WBC (4.4-10.8) 10^3/uL 8.90 RBC (4.36-5.78) 10^6/uL 4.11 L Hgb (13.5-17.5) g/dL 12.7 L Hct (40.0-50.0) % 38.3 L MCV (80-95) fL 93 MCH (27.0-33.0) pg 30.9 MCHC (32.0-36.0) % 33.2 RDW (11.8-14.1) % 12.0 Plt Count (130-400) 10^3/uL 271 MPV (8.0-11.0) fL 9.8 Immature Gran % % 0.3 Neutrophils % % 66.3 Lymphocytes % % 23.7 Monocytes % % 7.0 Eosinophils % % 2.6 Basophils % % 0.1 Nucleated RBC % (0.0-0.3) % 0.0 Absolute Neutrophils (1.2-6.7) 10^3/uL 5.90 Absolute Lymphocytes (1.2-3.4) 10^3/uL 2.11 Absolute Monocytes (0.1-0.8) 10^3/uL 0.62 Absolute Eosinophils (0.0-0.7) 10^3/uL 0.23 Absolute Basophils (0.0-0.2) 10^3/uL 0.01 VBG pH (7.31-7.41) 7.33 VBG pCO2 (41-51) mmHg 55 H VBG pO2 mmHg 29 VBG HCO3 (23-28) mmol/L 29 H VBG Total CO2 (24-29) mmol/L 27 VBG O2 Saturation % 48 VBG Base Excess (-2-3) mmol/L 3 Sodium (136-145) mmol/L 142 Potassium (3.5-5.1) mmol/L 4.4 Chloride (98-107) mmol/L 104 Carbon Dioxide (20.0-31.0) mmol/L 29.0 Anion Gap (3-11) mmol/L 9 BUN (9-23) mg/dL 26 H Creatinine (0.73-1.18) mg/dL 1.46 H Est GFR (CKD-EPI 2020) (mL/min/1.73m2) 46.38 Glucose (74-106) mg/dL 156 H Calcium (8.3-10.6) mg/dL 8.7 Magnesium (1.6-2.6) mg/dL 1.4 L Total Bilirubin (0.2-1.2) mg/dL 0.3 AST (<34) U/L 21 ALT (10-49) U/L 19 Alkaline Phosphatase (46-116) U/L 80 Troponin I (<54) ng/L 7 6 Cancelled NT-Pro-B Natriuret Pep (<300) pg/mL 532 H Total Protein (5.7-8.2) g/dL 7.4 Albumin (3.2-5.0) g/dL 4.2 Lipase (<53) U/L 37 PFSH All Active Problems (Updated 11/21/25 @ 00:34 by Chad Coronado MD) Episodic lightheadedness (Acute) Hypertension (Chronic) Hyperglycemia (Acute) Hypomagnesemia (Acute) Chest pain (Acute) Cognitive changes (Acute) Hypomagnesemia (Acute) Elevated troponin (Acute) Nausea & vomiting (Acute) Medical History Diabetes HTN (hypertension) Surgical History Hx of CABG History of appendectomy Social History Smoking/Tobacco Use Status: Former Tobacco Use Smoking risk assessment performed?: Yes Alcohol Intake: never Drug use: Never Substance use type: does not use Housing: house Do you feel safe at home: Yes Do you feel safe in your relationship?: Yes Additional Social history: lives with
[2025-11-21] VITALS: BP 162/47; PULSE 62; PULSE 63; RESP 18
[2025-11-21 00:01] VITALS: PULSE 65; RESP 16
[2025-11-21 00:16] VITALS: BP 149/53; PULSE 63
== END 2025-11-21 00:45 | disposition home or self-care (01) ==
PROVIDERS: Emergency Provider General Practice; PCP Nurse Practitioner Family
DX: R42 Dizziness and giddiness (principal); E83.42 Hypomagnesemia
CPT/HCPCS: 99284; 99285; 36415; 36416; 82962; 70496; 70498; 80053; 82805; 83690; 93005; 96365; 71046; 83735; 83880; 84484; 85025; 87070; 87205; 93010; J3475; J3490